=== PATIENT | female | born 1990 ===

== ENCOUNTER 2022-04-11 20:22 | Inpatient (IN) | payer OTHER, SELFPAY ==
[2022-04-11 21:52] VITALS: BP 156/103; PULSE 84; RESP 17; O2SAT 97; BMI 35.5
--- NOTE | 2022-04-11 21:59 | ED_ITS ---
HPI - Psych General Chief Complaint: Psychiatric Symptoms Stated Complaint: crisis eval Time Seen by Provider: 04/11/22 21:59 Source: patient Mode of arrival: ambulatory Limitations: language barrier History of Present Illness HPI Narrative: 1.5 months of not walking. Thought that she has conversion disorder. Now with self harm, cutting herself today. She feels particularly suicidal now, feels worthless, feels like she does not have strength. She and her foster children and one of the child after 3 years was sent back to the family. MD complaint: suicidal ideation and feels depressed Onset (ago): month(s) Duration: constant History of same: Yes Relieving factors: none Exacerbating factors: none Associated psychiatric symptoms: depression and suicidal ideation If self harm: admits thoughts of self harm Related Data Allergies Allergy/AdvReac Type Severity Reaction Status Date / Time No Known Allergies Allergy Verified 04/11/22 22:06 Review of Systems Constitutional: Constitutional: Reports no additional constitutional complaints Eyes: Eyes: Reports no additional eye complaints ENT: Denies dizziness Cardiovascular: Cardiovascular: Reports no additional cardiovascular complaints Respiratory: Respiratory: Reports as per HPI Gastrointestinal: Gastrointestinal: Reports no additional gastrointestinal complaints Genitourinary: Genitourinary: Reports no additional female genitourinary complaints Musculoskeletal: Musculoskeletal: Reports no additional musculoskeletal complaints Integumentary/Breasts: Skin/Breast: Denies rash Neurologic: Reports system reviewed and no additional complaints, except as documented, Denies dizziness and Denies Sensory deficit (Neuro) Psychiatric: Psychiatric: Denies anxiety PMFSH Social History Social History Patient Tobacco Use Status: Never used Tobacco Use of substances other than those prescribed or required for medical reasons: No Advance Directives: No Advance Directives Information Provided: No Physical Exam Vital Signs: Vital Signs: Last Vital Signs Pulse 69 04/12/22 06:00 Resp 17 04/11/22 21:52 BP 119/72 04/12/22 06:00 Pulse Ox 94 04/12/22 06:00 O2 Del Method 04/12/22 06:00 BMI result Body Mass Index 35.5 Const: Other: flat affect Nutritional Appearance: average body habitus Orientation/consciousness: oriented to person and patient oriented x3 Limitations: no limitations HEENT: Head: Yes normal to inspection Ears: external ears normal General nose exam: Normal external nose present Mouth: Normal oral and palatal mucosa present and oropharynx normal Throat: Yes posterior oropharynx normal Eyes: General: appearance normal, both eyes and all related structures Neck: Other: supple Neck: Yes normal visual inspection Chest: Chest palpation & inspection: normal inspection of the chest Resp: Auscultation: clear to auscultation bilaterally Cardio: Jugular venous distension: no JVD Rate: regular rate Rhythm: regular rhythm Heart sounds: S1 normal heart sound present and S2 normal heart sound present GI: Inspection: Yes normal to inspection Palpation (GI): Soft to palpation, nontender and No hepatosplenomegaly present Auscultation: normal bowel sounds : General: Yes no CVA tenderness Back/Spine/Pelvis: Back: no CVA tenderness Skin: General skin exam: no rashes or lesions noted Neuro: General: oriented to person and patient oriented x3 Cranial nerves: Yes CN's II-XII intact bilaterally Motor exam (neuro): 5/5 motor strength present throughout Sensory Exam: No Sensory deficit (Neuro) Extrem: General: Yes normal to inspection Psych: Other: flat affect Course Reevaluation(s) Reevaluation #1: Patient placed in physician observation, she is awaiting evaluation, likely a bed search, patient to be in observation for continued evaluation to see if her symptoms improve and change her disposition Time: 07:22 [facility] - Psych Lab Data Result diagrams: 04/11/22 22:50 04/11/22 22:50 Labs: Lab Results 04/11/22 04/11/22 04/12/22 Range/Units 22:50 22:50 03:57 WBC 6.6 (4.8-10.8) X10*3/uL RBC 4.41 (4.20-5.50) X10*6/uL Hgb 12.7 (12.0-16.0) g/dl Hct 37.9 (37.0-47.0) % MCV 85.9 (80.0-98.0) fL MCH 28.8 (27.0-33.0) pg MCHC 33.5 (31.0-35.0) g/dl RDW 12.6 (11.0-16.0) % Plt Count 254 (160-400) X10*3/uL MPV 10.9 (9.4-12.3) fL Immature Gran % (Auto) 0.3 (0.0-0.4) % Neut % (Auto) 54.5 (45-73) % Lymph % (Auto) 36.8 (20-40) % [place] % (Auto) 6.6 (2-11) % Eos % (Auto) 1.2 (0-4) % Baso % (Auto) 0.6 (0-2) % Lymph # (Auto) 2.4 (1.2-4.9) X10*3/uL [place] # (Auto) 0.4 (0.1-1.2) X10*3/uL Eos # (Auto) 0.1 (0.0-0.4) X10*3/uL Baso # (Auto) 0.0 (0.0-0.2) X10*3/uL Abs Immat Gran (auto) 0.02 (0.00-0.03) X10*3/uL Absolute Neuts (auto) 3.6 (2.0-8.3) x10*3/uL Absolute Nucleated RBC 0.000 (0.0-0.012) X10*3/uL Nucleated RBC % (auto) 0.0 (0.0-0.2) /100WBC Sodium 139 (135-145) mmol/L Potassium 3.9 (3.3-5.1) mmol/L Chloride 106 (96-108) mmol/L Carbon Dioxide 23 (22-29) mmol/L Anion Gap 14 (12-20) BUN 11 (9-16) mg/dL Creatinine 0.72 (0.5-1.4) mg/dL Estim Creat Clear Calc 132.4 Estimated GFR > 60 Random Glucose 90 (60-115) mg/dL Calcium 8.9 (8.4-10.2) mg/dL Total Bilirubin 0.5 (0.0-1.0) mg/dL AST 18 (5-31) U/L ALT 14 (0-31) U/L Alkaline Phosphatase 128 H (39-117) U/L Total Protein 7.3 (6.5-8.0) g/dL Albumin 4.2 (3.5-5.0) g/dL Urine Test (NEGATIVE) Salicylates < 5.0 L (15-30) mg/dL Urine Opiates Screen Not Detected (Not Detect) Urine Fentanyl Screen Not Detected (Not Detect) Acetaminophen < 1 (<30) mcg/mL Ur Barbiturates Screen Not Detected (Not Detect) Ur Phencyclidine Scrn Not Detected (Not Detect) Ur Amphetamines Screen Not Detected (Not Detect) U Benzodiazepines Scrn POSITIVE H (Not Detect) Urine Cocaine Screen Not Detected (Not Detect) U Marijuana (THC) Screen Not Detected (Not Detect) Ethyl Alcohol < 10 mg/dL 04/12/22 Range/Units 03:57 WBC (4.8-10.8) X10*3/uL RBC (4.20-5.50) X10*6/uL Hgb (12.0-16.0) g/dl Hct (37.0-47.0) % MCV (80.0-98.0) fL MCH (27.0-33.0) pg MCHC (31.0-35.0) g/dl RDW (11.0-16.0) % Plt Count (160-400) X10*3/uL MPV (9.4-12.3) fL Immature Gran % (Auto) (0.0-0.4) % Neut % (Auto) (45-73) % Lymph % (Auto) (20-40) % [place] % (Auto) (2-11) % Eos % (Auto) (0-4) % Baso % (Auto) (0-2) % Lymph # (Auto) (1.2-4.9) X10*3/uL [place] # (Auto) (0.1-1.2) X10*3/uL Eos # (Auto) (0.0-0.4) X10*3/uL Baso # (Auto) (0.0-0.2) X10*3/uL Abs Immat Gran (auto) (0.00-0.03) X10*3/uL Absolute Neuts (auto) (2.0-8.3) x10*3/uL Absolute Nucleated RBC (0.0-0.012) X10*3/uL Nucleated RBC % (auto) (0.0-0.2) /100WBC Sodium (135-145) mmol/L Potassium (3.3-5.1) mmol/L Chloride (96-108) mmol/L Carbon Dioxide (22-29) mmol/L Anion Gap (12-20) BUN (9-16) mg/dL Creatinine (0.5-1.4) mg/dL Estim Creat Clear Calc Estimated GFR Random Glucose (60-115) mg/dL Calcium (8.4-10.2) mg/dL Total Bilirubin (0.0-1.0) mg/dL AST (5-31) U/L ALT (0-31) U/L Alkaline Phosphatase (39-117) U/L Total Protein (6.5-8.0) g/dL Albumin (3.5-5.0) g/dL Urine Test NEGATIVE (NEGATIVE) Salicylates (15-30) mg/dL Urine Opiates Screen (Not Detect) Urine Fentanyl Screen (Not Detect) Acetaminophen (<30) mcg/mL Ur Barbiturates Screen (Not Detect) Ur Phencyclidine Scrn (Not Detect) Ur Amphetamines Screen (Not Detect) U Benzodiazepines Scrn (Not Detect) Urine Cocaine Screen (Not Detect) U Marijuana (THC) Screen (Not Detect) Ethyl Alcohol mg/dL Discharge Plan Discharge Clinical Impression: Suicidal ideation, Depression, Acute anxiety Patient Disposition: Still a Patient
--- NOTE | 2022-04-11 22:19 | PC.NURSE ---
PT ON 1:1, CHANGED INTO HOSPITAL ATTIRE, ACCOMPANIED BY RELATIVE. PT TRANSFERS SELF TO STRETCHER FROM WHEELCHAIR, STATES CHRONIC PARESTHESIAS AND WEAKNESS IN BILAT LE'S. STATES THAT SHE BEGAN TO SELF HARM TODAY AFTER SEVERAL MONTHS OF ABSTAINING FROM DOING SO, STATES RECENT LIFE STRESSORS. REPORTS SI, WITH NO PLAN.
[2022-04-11 22:53] LABS: MANUAL DIFF FLAG NO
[2022-04-11 22:55] LABS: Basophils Percent Auto 0.6 % (0-2); Eosinophils Absolute Auto 0.1 X10*3/uL (0.0-0.4); Eosinophils Percent Auto 1.2 % (0-4); Hematocrit 37.9 % (37.0-47.0); Hemoglobin 12.7 g/dl (12.0-16.0); Imm Gran Abs Auto 0.02 X10*3/uL (0.00-0.03); Imm Gran Pct Auto 0.3 % (0.0-0.4); Lymphocytes Absolute Auto 2.4 X10*3/uL (1.2-4.9); Lymphocytes Percent Auto 36.8 % (20-40); Mean Corpuscular HGB Conc 33.5 g/dl (31.0-35.0); Mean Corpuscular Hemoglobin 28.8 pg (27.0-33.0); Mean Corpuscular Volume 85.9 fL (80.0-98.0); Mean Platelet Volume 10.9 fL (9.4-12.3); Monocytes Absolute Auto 0.4 X10*3/uL (0.1-1.2); Monocytes Percent Auto 6.6 % (2-11); Neutrophils Absolute Auto 3.6 x10*3/uL (2.0-8.3); Neutrophils Percent Auto 54.5 % (45-73); Platelet Count 254 X10*3/uL (160-400); Red Blood Count 4.41 X10*6/uL (4.20-5.50); Red Cell Distribution Width 12.6 % (11.0-16.0); White Blood Count 6.6 X10*3/uL (4.8-10.8)
--- NOTE | 2022-04-11 23:03 | PC.NURSE ---
pt was seen [facility] by Vian[facility] and is a bedsearch with them.
[2022-04-11 23:16] LABS: Alanine Aminotransferase 14 U/L (0-31); Albumin Level 4.2 g/dL (3.5-5.0); Alkaline Phosphatase 128 U/L (39-117); Anion Gap 14 (12-20); Aspartate Amino Transferase 18 U/L (5-31); Bilirubin Total 0.5 mg/dL (0.0-1.0); Blood Urea Nitrogen 11 mg/dL (9-16); Calcium 8.9 mg/dL (8.4-10.2); Carbon Dioxide 23 mmol/L (22-29); Chloride 106 mmol/L (96-108); Creatinine Clr Calc Pharmacy 132.4; Estimated Glomerular Filt Rate > 60; Ethanol < 10 mg/dL; Glucose Random 90 mg/dL (60-115); Potassium 3.9 mmol/L (3.3-5.1); Sodium 139 mmol/L (135-145); Total Protein 7.3 g/dL (6.5-8.0)
[2022-04-12] VITALS: BP 128/85; PULSE 88; O2SAT 98
[2022-04-12] MEDS: traZODone HCL 50 MG TABLET PO (00:15)
[2022-04-12 01:28] LABS: Acetaminophen LAB < 1 mcg/mL (<30); Salicylate < 5.0 mg/dL (15-30)
[2022-04-12 04:08] LABS: UPreg QC Valid YES; Urine Pregnancy NEGATIVE (NEGATIVE)
[2022-04-12 04:23] LABS: Amphetamine Screen Urine Not Detected (Not Detect); Barbiturates, Urine Not Detected (Not Detect); Benzodiazepines Screen Urine POSITIVE (Not Detect); Cannabinoid Screen Urine Not Detected (Not Detect); Cocaine Screen Urine Not Detected (Not Detect); Fentanyl, urine Not Detected (Not Detect); Opiate Screen Urine Not Detected (Not Detect); Phencyclidine Screen Urine Not Detected (Not Detect)
[2022-04-12 06:00] VITALS: BP 119/72; PULSE 69; O2SAT 94
[2022-04-12 07:29] VITALS: BP 111/80; PULSE 80; RESP 16; O2SAT 95
[2022-04-12] MEDS: LORazepam 1 MG TABLET PO (07:39)
--- NOTE | 2022-04-12 07:41 | PC.NURSE ---
pt resting in bed comfortably this am. Pt reports feeling more anxious than usual this am. This nurse asked if pt would like something to help calm her down, she agreed. This nurse talked with felicity Foster ordered and administered per SEP.
--- NOTE | 2022-04-12 10:43 | PC.NURSE ---
pt at bedside, 1:[address] pt calm and cooperative throughout all care this am
[2022-04-12 11:32] VITALS: BP 108/79; PULSE 90; RESP 14; TEMP 37; O2SAT 98
[2022-04-12] MEDS: LORazepam 0.5 MG TABLET PO (18:06)
[2022-04-12 18:31] VITALS: BP 129/76; PULSE 109; RESP 18; TEMP 36.7; O2SAT 97
--- NOTE | 2022-04-12 19:23 | PC.NURSE ---
pt remains a sec 12 bedsearch, wheelchair bound at baseline, hx of self harm. has had family visitors at bedside throughout day, sleeps most of the day, occupies self with coloring activities at times. 1:[address] for safety[address] wctm for dc needs.
[2022-04-12 23:48] VITALS: BP 121/84; PULSE 89; RESP 20; TEMP 36.8; O2SAT 97
--- NOTE | 2022-04-13 01:40 | PC.NURSE ---
pt sleeping comfortably on stretcher. 1:[address]
--- NOTE | 2022-04-13 05:37 | PC.NURSE ---
therapeutic conversation had with patient. patient tearful with a very flat affect and major depression. pt states a huge trigger of her feeling this way was that her foster child of three years was just taken away from her and her a few months ago. pt finding things in room to self harm herself. found with a piece of plastic trying to harm wrists. states she is very sad and anxious and does not think she can overcome this one. will notify MD. pt states ativan helps to calm her. will inquire about ativan order... 1:[address]
[2022-04-13] MEDS: LORazepam 1 MG TABLET PO (06:04)
--- NOTE | 2022-04-13 06:08 | PC.NURSE ---
Patient just got transferred from main ED, patient walks independently with walker, but need supervision while ambulating, Ativan 1 mg administered for comfort, BHN called/confirmed patient's disposition which section 12 inpatient bed search for worsening depression and suicidal ideation, med rec completed/pending provider's approval, patient wears pull up, behvaior calm cooperative, VSS, will continue to monitor.
[2022-04-13 06:34] LABS: COVID-19 Test Negative (Negative)
--- NOTE | 2022-04-13 07:05 | PC.NURSE ---
patient appears to remain asleep at present respirations are even and unlabored patient appears in no distress
[2022-04-13] MEDS: DULoxetine HCl 60 MG CAPSULE.DR PO (09:48)
[2022-04-13 13:36] VITALS: BP 147/91; PULSE 80; RESP 16; TEMP 36.7; O2SAT 98
--- NOTE | 2022-04-13 14:40 | PHA.MEDREC ---
Pharmacy Consult ? Medication Reconciliation Pharmacy has completed the medication reconciliation. Reviewed med rec done by nursing
[2022-04-13 15:45] VITALS: BP 142/94; PULSE 94; RESP 16; TEMP 36.6; O2SAT 98
--- NOTE | 2022-04-13 18:11 | PC.NURSE ---
Addendum entered by Angelita Atkins RN 04/13/22 18:26: Per written history, pt has fibromyalgia Original Note: Pt was admitted to at 1515 from [facility] POD on CV after engaging in SH, anxiety and depression; COVID-negative. Utox: +BZO. In POD, pt engaged in self-harm, stating she scratched her left wrist with her fingernail. She sts her SH behavior was ?just cutting,? and denies it was suicidal in nature. Pt has experienced multiple recent life stressors, including r-t health, failed adoption of foster son who was returned to his mother. She has five children ages 7 mos. to 12 years old; reports poor concentration even when driving. Thought process during assessment was linear. Substance use: Pt reports drinking 6 beers three times weekly to help with anxiety, reports and displays no symptoms of withdrawal. Reports taking father?s Xanax for anxiety. Pt reports mood is sad. She is pleasant and cooperative during assessment, responds appropriately, uses humor; affect congruent to situation with some anxiety. Denies SI/HI/AH/VH, unsure if she feels safe. Reports sometimes poor appetite and naproxen in ED negatively affected appetite. Pt experienced a hospitalization in [place] at age 14 requiring a restraint for medication refusal. MedHx: Pt reports upcoming appointment with neurologist, and states ?we don?t know yet? what is causing physical symptoms; reports nodule on pituitary gland; loss of mobility; right-sided weakness; blurry vision; ?I forget to chew and swallow;? anemia, receives infusions Q 6 months; does not feel when bladder is full, wears briefs. Reports independence with ADLs; current question undiagnosed neuromuscular d-o, conversion disorder, demyelinating disease. Left wrist abrasion pt sts self-inflicted with fingernail in ED. PsycheHx: Borderline Personality Disorder; Moderate major depressive disorder, recurrent episode. Current self-harming ideation and behavior, depression. Pt is placed on 1:1 d-t SH behavior and wheelchair.
[2022-04-13] MEDS: TiZANidine HCL 4 MG TABLET PO (23:56)
[2022-04-13] MEDS: hydrOXYzine HCL 25 MG TABLET PO (23:56)
[2022-04-13] MEDS: traZODone HCL 50 MG TABLET PO (23:57)
[2022-04-14 08:30] VITALS: PULSE 80; RESP 18; TEMP 36.8; O2SAT 97
[2022-04-14 09:02] LABS: Estimated Average Glucose 108 mg/dL; Hemoglobin A1c % 5.4 %
[2022-04-14 09:11] LABS: Alanine Aminotransferase 14 U/L (0-31); Alkaline Phosphatase 125 U/L (39-117); Anion Gap 12 (12-20); Aspartate Amino Transferase 18 U/L (5-31); Bilirubin Total 0.9 mg/dL (0.0-1.0); Blood Urea Nitrogen 13 mg/dL (9-16); Calcium 9.1 mg/dL (8.4-10.2); Carbon Dioxide 24 mmol/L (22-29); Chloride 108 mmol/L (96-108); Cholesterol 150 mg/dL; Creatinine Clr Calc Pharmacy 138.2; Estimated Glomerular Filt Rate > 60; Glucose Fasting 98 mg/dL (60-99); HDL Cholesterol 34 mg/dL; LDL Cholesterol Calculated 96 mg/dl; Potassium 4.3 mmol/L (3.3-5.1); Sodium 140 mmol/L (135-145); Triglycerides 102 mg/dL
[2022-04-14 09:35] LABS: Thyroid Stimulating Hormone 1.33 uIU/mL (0.32-4.0)
[2022-04-14 09:41] LABS: Vitamin B12 296 pg/mL (200-900)
[2022-04-14] MEDS: Acetaminophen 325 MG TABLET 650 MG PO (09:52)
[2022-04-14] MEDS: DULoxetine HCl 60 MG CAPSULE.DR PO (09:53)
--- NOTE | 2022-04-14 13:11 | HO.PSYADMNOT ---
HPI Date of Service: 04/14/22 Chief Complaint: SI Sources of Information: patient interviewed, chart reviewed and crisis/core team assessment reviewed HPI Subjective Notes: Conditional Voluntary Narrative: Mrs. Rodríguez is 31 year-old woman with hx of Borderline Personality Disorder. She self presented to [facility] ED after she had superficial cut on right tight that she disclosed to her OT. Utox positive for benzo. On the unit, pt presents with good insight into her diagnosis in that she states she suffers from chronic sense of emptiness, fear of abandonment, reports remote hx of self injurious behaviors not with intent to end her life which she had not engaged in until recently due to increase stress. She reports her and her were foster parents to child they have been caring for since he was 3 days old for the past 3 years and apparently open adoption was coming soon but [facility] decided to reunite pt with bio mother. Pt also reports she has experienced weakness of bilat lower extremities, falls- pt had recent admission at [facility] and work up was completed by neurology, rheumatology, and she has been given dx of conversion syndrome as there is no evident physiological cause for this weakness. Pt reports she is able to walk, but when standing for prolonged periods of time she feels tingling and weakness on both legs and then has a fall. She reports feeling overwhelmed and wanting stressors to go away, but denies any plan or intent to . Pt reports fair sleep with trazodone. no hx of VH/AH. Past Psychiatric History: Inpatient: one prior several years ago in [place] OP: none currently but reports she had extensive CBT therapy, which is event by degree of insight into her mental health condition. Suicide attempts: none Medical Evaluation Reviewed: Yes [facility] Family History: Father- PTSD Social History: lives with and 4 children from ages 7 months- 15years old. Born in [place]. Substance History: denies Trauma History: hx of but no details disclosed. Diagnostics Vital Signs (24Hr): Vital Signs - 24 hr 04/13/22 13:36 04/13/22 15:45 Temperature 98.1 F 97.9 F Pulse Rate 80 94 Respiratory Rate 16 16 Blood Pressure 147/91 H 142/94 H Pulse Oximetry 98 98 Oxygen Delivery Method Room Air Room Air BMI result Body Mass Index 35.5 Labs Results: 04/11/22 22:50 04/14/22 08:28 Labs: Laboratory Results - last 48 hr 04/13/22 04/14/22 04/14/22 06:07 08:28 08:28 Sodium 140 Potassium 4.3 Chloride 108 Carbon Dioxide 24 Anion Gap 12 BUN 13 Creatinine 0.69 Estim Creat Clear Calc 138.2 Estimated GFR > 60 Fasting Glucose 98 Estimat Average Glucose 108 Hemoglobin A1c % 5.4 Calcium 9.1 Total Bilirubin 0.9 AST 18 ALT 14 Alkaline Phosphatase 125 H Total Protein 7.0 Albumin 4.0 Triglycerides 102 Cholesterol 150 LDL Cholesterol, Calc 96 HDL Cholesterol 34 Vitamin B12 TSH 1.33 COVID-19 (CAT) Negative COVID-19 Clin Com See Note 04/14/22 08:28 Sodium Potassium Chloride Carbon Dioxide Anion Gap BUN Creatinine Estim Creat Clear Calc Estimated GFR Fasting Glucose Estimat Average Glucose Hemoglobin A1c % Calcium Total Bilirubin AST ALT Alkaline Phosphatase Total Protein Albumin Triglycerides Cholesterol LDL Cholesterol, Calc HDL Cholesterol Vitamin B12 296 TSH COVID-19 (CAT) COVID-19 Clin Com Meds/Allergies Meds Home Medications Medication Instructions Recorded Confirmed Type duloxetine 30 mg capsule,delayed 60 mg PO DAILY 04/13/22 04/13/22 History release tizanidine 4 mg tablet 1 tab PO TID PRN Muscle Spasm 04/13/22 04/13/22 History tramadol 50 mg tablet 1 tab PO BID PRN pain 04/13/22 04/13/22 History Allergies Allergies Allergy/AdvReac Type Severity Reaction Status Date / Time No Known Allergies Allergy Verified 04/11/22 22:06 Assessment & Plan Assessment & Plan (1) Borderline personality disorder: Status: Acute Code(s): F60.3 - Borderline personality disorder Plan Mrs. Rodríguez is a 31 year-old woman with hx of Borderline Personality Disorder, pt very insight as to her own condition and triggers including chronic sense of emptiness, fear of abandonment, apparently not walking for past 1.5 months which has no medical explanation after admission to [facility] where there was extensive work up- given dx of conversion syndrome. Loss foster child who was reunited with bio mother after 3 years of caring for him. Utox positive for benzo. We discussed risks, benefits and alternative treatment options. will continue cymbalta, trazodone, may consider short term clonazepam. she is also looking to reconnect with OP psych providers. PLAN 1. Admit to M3, CV, 15 minutes checks for safety 2. continue cymbalta 3. obtain collateral information 4. Aftercare planning. Patient educated on: diagnosis Informed Consent: understands Reason for continued inpatient stay Substantial Risk for: harm to self and inability to function
[2022-04-14] MEDS: TiZANidine HCL 4 MG TABLET PO ×2 (14:48→22:11)
[2022-04-14] MEDS: hydrOXYzine HCL 25 MG TABLET PO ×2 (15:29→22:11)
[2022-04-14 18:00] VITALS: BP 134/83; PULSE 103; RESP 18; TEMP 36; O2SAT 98
[2022-04-14] MEDS: traZODone HCL 50 MG TABLET PO (22:11)
[2022-04-15 09:00] VITALS: BP 130/92; PULSE 73; RESP 16; TEMP 36.6; O2SAT 100
[2022-04-15] MEDS: DULoxetine HCl 60 MG CAPSULE.DR PO (09:06)
[2022-04-15] MEDS: hydrOXYzine HCL 25 MG TABLET PO (09:06)
[2022-04-15] MEDS: clonazePAM 0.5 MG TABLET PO ×2 (12:50→20:34)
--- NOTE | 2022-04-15 13:21 | P.PNPSI_ITS ---
Subjective Subjective Date of Service: 04/15/22 Reason For Visit: SI Subjective Notes: Conditional Voluntary Interim History: Pt reports feeling so, so She reports feeling anxious at times. She reports she worries about her as she has many things on her plate. She denies SI/HI. No self injurious behaviors. we discussed wheelchair has not been recommended by PT, and therefore she should have walker instead. will do PT consult here. continue current medications. Medication Compliance: Yes Side effects from medications: No Review of Systems Constitutional: Reports no additional constitutional complaints, Reports fatigue and Reports lethargy Eyes: Reports no additional eye complaints Reports system reviewed and no additional complaints, except as documented and Denies dizziness Cardiovascular: Reports no additional cardiovascular complaints, Denies chest pain, Denies diaphoresis, Denies lightheadedness and Denies dyspnea Respiratory: Reports as per HPI and Denies dyspnea Gastrointestinal: Reports no additional gastrointestinal complaints and Denies constipation Musculoskeletal: Reports no additional musculoskeletal complaints, Reports muscle weakness and Reports tingling (bilat legs) Skin/Breast: Denies rash Reports system reviewed and no additional complaints, except as documented, Den ies dizziness, Denies Sensory deficit (Neuro) and Reports tingling (bilat legs) Psychiatric: Denies anxiety Endocrine: Reports fatigue Mental Status Exam Mental Status Exam Narrative: Appearance: casually groomed, fair hygiene in NAD Behavior: cooperative psychomotor: no psychomotor agitation or retardation noted Speech: clear, normal rate/rhythm/volume, spontaneous Thought process:linear Thought content:no signs of psychosis, feeling anxious but no SI Mood: anxious Affect: congruent, but brightens up SI:none HI:none VH/AH:none Delusions:none Insight/judgment:fair x 2. Memory/cog: alert, oriented x 3. grossly intact to conversational testing. Diagnostics Vital Signs (24Hr): Vital Signs - 24 hr 04/15/22 14:10 04/15/22 18:00 Temperature 98.3 F Pulse Rate 73 103 H Respiratory Rate 17 Blood Pressure 130/92 H 135/88 Pulse Oximetry 100 95 Oxygen Delivery Method Room Air BMI result Body Mass Index 35.5 Labs Results: 04/11/22 22:50 04/14/22 08:28 Labs: Laboratory Results - last 48 hr 04/14/22 04/14/22 08:28 08:28 Vitamin B12 296 TSH 1.33 Medications Medications Current Medications Acetaminophen (Acetaminophen 325 Mg Tablet) 650 mg PO Q6H PRN PRN Reason: Headache/Pain Mild Scale (1-3) Last Admin: 04/15/22 20:34 Dose: 650 mg Al Hydroxide/Mg Hydroxide (Magnesium Hydrox/Alum Hydrox 30 Ml Oral.Susp) 30 ml PO Q6H PRN PRN Reason: Heartburn/Nausea Clonazepam (Clonazepam 0.5 Mg Tablet) 0.5 mg PO BID ALON Last Admin: 04/15/22 20:34 Dose: 0.5 mg Duloxetine HCl (Duloxetine Hcl 60 Mg Capsule.Dr) 60 mg PO DAILY ALON Last Admin: 04/15/22 09:06 Dose: 60 mg Hydroxyzine HCl (Hydroxyzine Hcl 25 Mg Tablet) 25 mg PO Q6H PRN PRN Reason: Anxiety Last Admin: 04/15/22 09:06 Dose: 25 mg Magnesium Hydroxide (Milk Of Magnesia 30 Ml Oral.Susp) 30 ml PO DAILY PRN PRN Reason: Constipation Tizanidine HCl (Tizanidine Hcl 4 Mg Tablet) 4 mg PO TID PRN PRN Reason: Muscle Spasm Last Admin: 04/14/22 22:11 Dose: 4 mg Trazodone HCl (Trazodone Hcl 50 Mg Tablet) 50 mg PO BEDTIME PRN PRN Reason: Insomnia Last Admin: 04/14/22 22:11 Dose: 50 mg Allergies Allergies Allergy/AdvReac Type Severity Reaction Status Date / Time No Known Allergies Allergy Verified 04/11/22 22:06 Assessment & Plan Assessment & Plan (1) Borderline personality disorder: Status: Acute Code(s): F60.3 - Borderline personality disorder Plan Mrs. Rodríguez is a 31 year-old woman with hx of Borderline Personality Disorder, pt very insight as to her own condition and triggers including chronic sense of emptiness, fear of abandonment, apparently not walking for past 1.5 months which has no medical explanation after admission to [facility] where there was extensive work up- given dx of conversion syndrome. Loss foster child who was reunited with bio mother after 3 years of caring for him. Utox positive for benzo. We discussed risks, benefits and alternative treatment options. will continue cymbalta, trazodone, may consider short term clonazepam. she is also looking to reconnect with OP psych providers. PLAN 1. Admit to M3, CV, 15 minutes checks for safety 2. continue cymbalta 3. obtain collateral information 4. Aftercare planning. 04/15 continue current medications. I spent minutes with the patient and/or on the patient floor today, gre ater than?50% of which was spent counseling/coordinating care. Reason for contiued inpatient stay Substantial Risk for: harm to self
[2022-04-15 14:10] VITALS: BP 130/92; PULSE 73; O2SAT 100
[2022-04-15 18:00] VITALS: BP 135/88; PULSE 103; RESP 17; TEMP 36.8; O2SAT 95
[2022-04-15] MEDS: Acetaminophen 325 MG TABLET 650 MG PO (20:34)
[2022-04-16] MEDS: clonazePAM 1 MG TABLET PO (04:23)
--- NOTE | 2022-04-16 04:42 | PC.NURSE ---
Pt was seen sitting on her bathroom floor crying with a plastic spoon in her hand at around 0355. Pt gave the spoon up at staff's request without any incident. Staff sought to find the reason for Pt's sudden behavior but Pt would not talk about it. Pt was given a clear, calm and brief redirection. Provider notified, onetime order for Klonopin 1mg ordered and given with positive effect. Pt is back in bed resting comfortably.
[2022-04-16 08:35] VITALS: PULSE 72; RESP 18; TEMP 37.1; O2SAT 97
[2022-04-16] MEDS: clonazePAM 0.5 MG TABLET PO ×2 (10:41→21:10)
[2022-04-16] MEDS: DULoxetine HCl 60 MG CAPSULE.DR PO (10:42)
[2022-04-16] MEDS: TiZANidine HCL 4 MG TABLET PO (10:52)
--- NOTE | 2022-04-16 13:34 | HO.PSYCHPN ---
Subjective Subjective Date of Service: 04/16/22 Reason For Visit: SI Subjective Notes: Conditional Voluntary Interim History: Noted some regression from pt's behaviors and increase in self injurious urges or at least report off, after wheelchair was removed due no clinical indication. Pt did not sleep well, crying at night, holding plastic spoon reporting urges to self harm not with intent of ending life. She was given clonazepam 1mg last time. This morning, pt on the floor holding again plastic spoon and reporting urges to self harm, needed much encouragement to return plastic utensil. Pt clearly states urges to self harm not with intent to end her life. this machine sign writer explained to pt that we're not having 1:1 and self harm although not suicidal not allowed on unit, pt given other alternative such as holding ice on wrist. pt agrees not to self harm while unit, explained also to pt that it will not prolonged admission, which pt understands and is in agreement. Pt reports voices of past trauma but these do not appear psychosis in nature. pt in somewhat helpless position- asking attention from certain staff. Review of Systems Constitutional: Reports no additional constitutional complaints, Reports fatigue and Reports lethargy Eyes: Reports no additional eye complaints Reports system reviewed and no additional complaints, except as documented and Denies dizziness Cardiovascular: Reports no additional cardiovascular complaints, Denies chest pain, Denies diaphoresis, Denies lightheadedness and Denies dyspnea Respiratory: Reports as per HPI and Denies dyspnea Gastrointestinal: Reports no additional gastrointestinal complaints and Denies constipation Musculoskeletal: Reports no additional musculoskeletal complaints, Reports muscle weakness and Reports tingling (bilat legs) Skin/Breast: Denies rash Reports system reviewed and no additional complaints, except as documented, Denies dizziness, Denies Sensory deficit (Neuro) and Reports tingling (bilat legs) Psychiatric: Denies anxiety Endocrine: Reports fatigue Mental Status Exam Mental Status Exam Narrative: Appearance: casually groomed, fair hygiene in NAD Behavior: cooperative psychomotor: no psychomotor agitation or retardation noted Speech: clear, normal rate/rhythm/volume, spontaneous Thought process:linear Thought content:no signs of psychosis, feeling anxious but no SI Mood: anxious Affect: congruent, but brightens up SI:none HI:none VH/AH:none Delusions:none Insight/judgment:fair x 2. Memory/cog: alert, oriented x 3. grossly intact to conversational testing. Diagnostics Vital Signs (24Hr): Vital Signs - 24 hr 04/15/22 14:10 04/15/22 18:00 04/16/22 08:35 Temperature 98.3 F 98.7 F Pulse Rate 73 103 H 72 Respiratory Rate 17 18 Blood Pressure 130/92 H 135/88 Pulse Oximetry 100 95 97 Oxygen Delivery Method Room Air Room Air BMI result Body Mass Index 35.5 Labs Results: 04/11/22 22:50 04/14/22 08:28 Medications Medications Current Medications Acetaminophen (Acetaminophen 325 Mg Tablet) 650 mg PO Q6H PRN PRN Reason: Headache/Pain Mild Scale (1-3) Last Admin: 04/15/22 20:34 Dose: 650 mg Al Hydroxide/Mg Hydroxide (Magnesium Hydrox/Alum Hydrox 30 Ml Oral.Susp) 30 ml PO Q6H PRN PRN Reason: Heartburn/Nausea Clonazepam (Clonazepam 0.5 Mg Tablet) 0.5 mg PO BID [facility] Last Admin: 04/16/22 10:41 Dose: 0.5 mg Duloxetine HCl (Duloxetine Hcl 60 Mg Capsule.Dr) 60 mg PO DAILY [facility] Last Admin: 04/16/22 10:42 Dose: 60 mg Hydroxyzine HCl (Hydroxyzine Hcl 25 Mg Tablet) 25 mg PO Q6H PRN PRN Reason: Anxiety Last Admin: 04/15/22 09:06 Dose: 25 mg Magnesium Hydroxide (Milk Of Magnesia 30 Ml Oral.Susp) 30 ml PO DAILY PRN PRN Reason: Constipation Tizanidine HCl (Tizanidine Hcl 4 Mg Tablet) 4 mg PO TID PRN PRN Reason: Muscle Spasm Last Admin: 04/16/22 10:52 Dose: 4 mg Trazodone HCl (Trazodone Hcl 50 Mg Tablet) 50 mg PO BEDTIME PRN PRN Reason: Insomnia Last Admin: 04/14/22 22:11 Dose: 50 mg Allergies Allergies Allergy/AdvReac Type Severity Reaction Status Date / Time No Known Allergies Allergy Verified 04/11/22 22:06 Assessment & Plan Assessment & Plan (1) Borderline personality disorder: Status: Acute Code(s): F60.3 - Borderline personality disorder Plan Mrs. Rodríguez is a 31 year-old woman with hx of Borderline Personality Disorder, pt very insight as to her own condition and triggers including chronic sense of emptiness, fear of abandonment, apparently not walking for past 1.5 months which has no medical explanation after admission to [facility] where there was extensive work up- given dx of conversion syndrome. Loss foster child who was reunited with bio mother after 3 years of caring for him. Utox positive for benzo. We discussed risks, benefits and alternative treatment options. will continue cymbalta, trazodone, may consider short term clonazepam. she is also looking to reconnect with OP psych providers. PLAN 1. Admit to M3, CV, 15 minutes checks for safety 2. continue cymbalta 3. obtain collateral information 4. Aftercare planning. 04/15 continue current medications. 04/16 pt with some regression in that she is reporting and trying to engage in self harm behaviors, not allowed to use plastic utensil at least in room, she agrees to this. No need for one to one as it will reinforced attention and regressive behaviors, pt understands this. encouraged pt to ask for ice if needed for self soothing, she agrees to try naltrexon to decrease urges to self cut. report of voices, trauma related but not psychosis in nature. pt insightful about borderline dx and short admission is a must to prevent further regression. pt in agreement. I spent minutes with the patient and/or on the patient floor today, greater than?50% of which was spent counseling/coordinating care. Reason for contiued inpatient stay Substantial Risk for: harm to self
[2022-04-16 14:30] VITALS: BP 146/90; PULSE 100; RESP 16; TEMP 36.6; O2SAT 96
[2022-04-16] MEDS: Naltrexone HCl 50 MG TABLET PO (15:30)
--- NOTE | 2022-04-16 18:50 | PC.NURSE ---
At 1630 Ayaka had a quarter sized spot on her pillow that looked like blood. She says she coughed it up in her sleep. She had not been coughing excessively. No noted injury to cheek or lip. She denied swallowing anything she wasn't supposed to swallow. Nothing coming out of nose. I had her blow her nose and the discharge was clear. I cleaned her pillow and told her to report any further occurrence. It has since happened two more times. She denies this has happened before. She reports hx gastric bypass. She is reporting some stomach upset and mild dizziness. Elsa Jennings MOLDER OFFBEARER informed.
[2022-04-16] MEDS: Magnesium Hydrox/Alum Hydrox 30 ML ORAL.SUSP PO (19:15)
[2022-04-16 20:32] VITALS: BP 153/96; PULSE 94; RESP 18; TEMP 36.7; O2SAT 96
[2022-04-16] MEDS: traZODone HCL 100 MG TABLET PO (21:09)
[2022-04-17 08:30] VITALS: BP 138/88; PULSE 82; RESP 16; TEMP 36.8; O2SAT 97
[2022-04-17] MEDS: clonazePAM 0.5 MG TABLET PO ×2 (08:57→21:26)
[2022-04-17] MEDS: DULoxetine HCl 60 MG CAPSULE.DR PO (08:57)
[2022-04-17] MEDS: Naltrexone HCl 50 MG TABLET PO (08:57)
[2022-04-17] MEDS: Magnesium Hydrox/Alum Hydrox 30 ML ORAL.SUSP PO (09:00)
[2022-04-17 13:00] LABS: MANUAL DIFF FLAG NO
[2022-04-17 13:02] LABS: Basophils Percent Auto 0.5 % (0-2); Eosinophils Percent Auto 0.5 % (0-4); Hematocrit 40.4 % (37.0-47.0); Hemoglobin 13.3 g/dl (12.0-16.0); Imm Gran Abs Auto 0.01 X10*3/uL (0.00-0.03); Imm Gran Pct Auto 0.2 % (0.0-0.4); Lymphocytes Absolute Auto 1.3 X10*3/uL (1.2-4.9); Lymphocytes Percent Auto 19.8 % (20-40); Mean Corpuscular HGB Conc 32.9 g/dl (31.0-35.0); Mean Corpuscular Hemoglobin 28.7 pg (27.0-33.0); Mean Corpuscular Volume 87.1 fL (80.0-98.0); Mean Platelet Volume 9.7 fL (9.4-12.3); Monocytes Absolute Auto 0.5 X10*3/uL (0.1-1.2); Neutrophils Absolute Auto 4.7 x10*3/uL (2.0-8.3); Platelet Count 272 X10*3/uL (160-400); Red Blood Count 4.64 X10*6/uL (4.20-5.50); Red Cell Distribution Width 12.4 % (11.0-16.0); White Blood Count 6.7 X10*3/uL (4.8-10.8)
[2022-04-17] MEDS: QUEtiapine Fumarate 50 MG TABLET PO (13:14)
--- NOTE | 2022-04-17 13:14 | P.PNPSI_ITS ---
Subjective Subjective Date of Service: 04/17/22 Reason For Visit: SI Subjective Notes: Conditional Voluntary Interim History: Pt reports intermittent thoughts of wanting to harm herself. She reports some improvement in urges to self harm right after taking naltrexon. She continues to report flashbacks of past trauma, suicidal ideation but clear in that she sta anish she has no plan or intent to harm herself. Medication Compliance: Yes Side effects from medications: No Review of Systems Constitutional: Reports no additional constitutional complaints, Reports fatigue and Reports lethargy Eyes: Reports no additional eye complaints Reports system reviewed and no additional complaints, except as documented and Denies dizziness Cardiovascular: Reports no additional cardiovascular complaints, Denies chest pain, Denies diaphoresis, Denies lightheadedness and Denies dyspnea Respiratory: Reports as per HPI and Denies dyspnea Gastrointestinal: Reports no additional gastrointestinal complaints and Denies constipation Musculoskeletal: Reports no additional musculoskeletal complaints, Reports muscle weakness and Reports tingling (bilat legs) Skin/Breast: Denies rash Reports system reviewed and no additional complaints, except as documented, Denies dizziness, Denies Sensory deficit (Neuro) and Reports tingling (bilat legs) Psychiatric: Denies anxiety Endocrine: Reports fatigue Mental Status Exam Mental Status Exam Narrative: Appearance: casually groomed, fair hygiene in NAD Behavior: cooperative psychomotor: no psychomotor agitation or retardation noted Speech: clear, normal rate/rhythm/volume, spontaneous Thought process:linear Thought content:no signs of psychosis, feeling anxious but no SI Mood: anxious Affect: congruent, but brightens up SI:none HI:none VH/AH:none Delusions:none Insight/judgment:fair x 2. Memory/cog: alert, oriented x 3. grossly intact to conversational testing. Diagnostics Vital Signs (24Hr): Vital Signs - 24 hr 04/17/22 08:30 04/17/22 21:20 Temperature 98.3 F 98.4 F Pulse Rate 82 92 Respiratory Rate 16 18 Blood Pressure 138/88 151/100 H Pulse Oximetry 97 100 Oxygen Delivery Method Room Air Room Air BMI result Body Mass Index 35.5 Labs Results: 04/17/22 12:55 04/14/22 08:28 Labs: Laboratory Results - last 48 hr 04/17/22 12:55 WBC 6.7 RBC 4.64 Hgb 13.3 Hct 40.4 MCV 87.1 MCH 28.7 MCHC 32.9 RDW 12.4 Plt Count 272 MPV 9.7 Immature Gran % (Auto) 0.2 Neut % (Auto) 71.0 Lymph % (Auto) 19.8 L Christian % (Auto) 8.0 Eos % (Auto) 0.5 Baso % (Auto) 0.5 Lymph # (Auto) 1.3 Christian # (Auto) 0.5 Eos # (Auto) 0.0 Baso # (Auto) 0.0 Abs Immat Gran (auto) 0.01 Absolute Neuts (auto) 4.7 Absolute Nucleated RBC 0.000 Nucleated RBC % (auto) 0.0 Medications Medications Current Medications Acetaminophen (Acetaminophen 325 Mg Tablet) 650 mg PO Q6H PRN PRN Reason: Headache/Pain Mild Scale (1-3) Last Admin: 04/15/22 20:34 Dose: 650 mg Al Hydroxide/Mg Hydroxide (Magnesium Hydrox/Alum Hydrox 30 Ml Oral.Susp) 30 ml PO Q6H PRN PRN Reason: Heartburn/Nausea Last Admin: 04/17/22 09:00 Dose: 30 ml Clonazepam (Clonazepam 0.5 Mg Tablet) 0.5 mg PO BID [facility] Last Admin: 04/17/22 21:26 Dose: 0.5 mg Clotrimazole (Clotrimazole 1 % Cream 15 Gm Tube) 1 appl TOPICAL BID [facility]; Protocol Last Admin: 04/17/22 23:07 Dose: 1 appl Duloxetine HCl (Duloxetine Hcl 60 Mg Capsule.Dr) 60 mg PO DAILY [facility] Last Admin: 04/17/22 08:57 Dose: 60 mg Hydroxyzine HCl (Hydroxyzine Hcl 25 Mg Tablet) 25 mg PO Q6H PRN PRN Reason: Anxiety Last Admin: 04/15/22 09:06 Dose: 25 mg Magnesium Hydroxide (Milk Of Magnesia 30 Ml Oral.Susp) 30 ml PO DAILY PRN PRN Reason: Constipation Naltrexone HCl (Naltrexone Hcl 50 Mg Tablet) 50 mg PO DAILY [facility] Last Admin: 04/17/22 08:57 Dose: 50 mg Quetiapine Fumarate (Quetiapine Fumarate 50 Mg Tablet) 50 mg PO Q6H PRN PRN Reason: agitation, severe anxiety Last Admin: 04/17/22 13:14 Dose: 50 mg Tizanidine HCl (Tizanidine Hcl 4 Mg Tablet) 4 mg PO TID PRN PRN Reason: Muscle Spasm Last Admin: 04/16/22 10:52 Dose: 4 mg Trazodone HCl (Trazodone Hcl 100 Mg Tablet) 100 mg PO BEDTIME [facility] Last Admin: 04/17/22 23:07 Dose: 100 mg Allergies Allergies Allergy/AdvReac Type Severity Reaction Status Date / Time No Known Allergies Allergy Verified 04/11/22 22:06 Assessment & Plan Assessment & Plan (1) Borderline personality disorder: Status: Acute Code(s): F60.3 - Borderline personality disorder Plan Mrs. Rodríguez is a 31 year-old woman with hx of Borderline Personality Disorder, pt very insight as to her own condition and triggers including chronic sense of emptiness, fear of abandonment, apparently not walking for past 1.5 months which has no medical explanation after admission to [facility] where there was extensive work up- given dx of conversion syndrome. Loss foster child who was reunited with bio mother after 3 years of caring for him. Utox positive for benzo. We discussed risks, benefits and alternative treatment options. will continue cymbalta, trazodone, may consider short term clonazepam. she is also looking to reconnect with OP psych providers. PLAN 1. Admit to M3, CV, 15 minutes checks for safety 2. continue cymbalta 3. obtain collateral information 4. Aftercare planning. 04/15 continue current medications. 04/16 pt with some regression in that she is reporting and trying to engage in self harm behaviors, not allowed to use plastic utensil at least in room, she agrees to this. No need for one to one as it will reinforced attention and regressive behaviors, pt understands this. encouraged pt to ask for ice if needed for self soothing, she agrees to try naltrexon to decrease urges to self cut. report of voices, trauma related but not psychosis in nature. pt insightful about borderline dx and short admission is a must to prevent further regression. pt in agreement. 04/17 continue current tx. plan for dc on Monday. I spent minutes with the patient and/or on the patient floor today, greater than?50% of which was spent counseling/coordinating care. Reason for contiued inpatient stay Substantial Risk for: inability to function
[2022-04-17] MEDS: Clotrimazole 1 % Cream 15 GM TUBE 1 APPL TOPICAL ×2 (18:21→23:07)
[2022-04-17 21:20] VITALS: BP 151/100; PULSE 92; RESP 18; TEMP 36.9; O2SAT 100
[2022-04-17] MEDS: traZODone HCL 100 MG TABLET PO (23:07)
--- NOTE | 2022-04-18 06:46 | PC.NURSE ---
At approx. 0630, pt bathroom call light alarmed. Staff responded immediately to find pt sitting on bathroom floor in her room. Pt had a bed sheet twisted into a rope, tied into a knot on her walker and the other end wrapped around her fist. Pt refused to respond to staff questions and attempts to assess what happened. Pt appeared to have lowered self to the ground, no injury apparent, in no apparent distress. Bed sheet was removed and pt was placed on 1:1 for safety. Provider notified.
[2022-04-18 08:00] VITALS: BP 145/87; PULSE 81; TEMP 36.8; O2SAT 98
[2022-04-18] MEDS: clonazePAM 0.5 MG TABLET PO ×2 (08:07→21:26)
[2022-04-18] MEDS: DULoxetine HCl 60 MG CAPSULE.DR PO (08:08)
[2022-04-18] MEDS: Naltrexone HCl 50 MG TABLET PO (08:09)
[2022-04-18] MEDS: Acetaminophen 325 MG TABLET 650 MG PO (08:23)
[2022-04-18] MEDS: Clotrimazole 1 % Cream 15 GM TUBE 1 APPL TOPICAL ×2 (08:25→22:37)
[2022-04-18] MEDS: QUEtiapine Fumarate 50 MG TABLET PO (16:12)
--- NOTE | 2022-04-18 16:20 | P.PNPSI_ITS ---
Subjective Subjective Date of Service: 04/18/22 Reason For Visit: SI Interim History: pt c/o CAH to kill herself, SIBI. describes constant struggle to stop from hurting herself. this morning she said the voices and thoughts were overwhelming so she tied off her sheet and was preparing to try to strangle herself when her roommate called out to her. she states that if her roommate hadn't intervened, she would have done it. she notes with a wry grin that her came in for a visit and met with LATANYA tim nobody informed the of this morning's event and the was quite angry. per staff, on 1:1. c/o AH. increased anxiety and depression. +SIBI. found on floor of bathroom this morning with sheet tied around walker with plan to asphyxiate herself (then she was placed on 1:1). Mental Status Exam Mental Status Exam Narrative: Appearance: casually groomed, fair hygiene in NAD Behavior: cooperative psychomotor: no psychomotor agitation or retardation noted Speech: clear, normal rate/rhythm/volume, spontaneous Thought process:linear Thought content:no signs of psychosis, SIBI Mood: not assessed Affect: variable but flexible SI:none SIBI: yes, cutting HI:none VH/AH: CAH to kill herself Delusions:none Insight/judgment:fair x 2. Memory/cog: alert, oriented x 3. grossly intact to conversational testing. Diagnostics Vital Signs (24Hr): Vital Signs - 24 hr 04/17/22 21:20 04/18/22 08:00 Temperature 98.4 F 98.3 F Pulse Rate 92 81 Respiratory Rate 18 Blood Pressure 151/100 H 145/87 H Pulse Oximetry 100 98 Oxygen Delivery Method Room Air Room Air BMI result Body Mass Index 35.5 Labs Results: 04/17/22 12:55 04/14/22 08:28 Labs: Laboratory Results - last 48 hr 04/17/22 12:55 WBC 6.7 RBC 4.64 Hgb 13.3 Hct 40.4 MCV 87.1 MCH 28.7 MCHC 32.9 RDW 12.4 Plt Count 272 MPV 9.7 Immature Gran % (Auto) 0.2 Neut % (Auto) 71.0 Lymph % (Auto) 19.8 L Kent % (Auto) 8.0 Eos % (Auto) 0.5 Baso % (Auto) 0.5 Lymph # (Auto) 1.3 Kent # (Auto) 0.5 Eos # (Auto) 0.0 Baso # (Auto) 0.0 Abs Immat Gran (auto) 0.01 Absolute Neuts (auto) 4.7 Absolute Nucleated RBC 0.000 Nucleated RBC % (auto) 0.0 Medications Medications Current Medications Acetaminophen (Acetaminophen 325 Mg Tablet) 650 mg PO Q6H PRN PRN Reason: Headache/Pain Mild Scale (1-3) Last Admin: 04/18/22 08:23 Dose: 650 mg Al Hydroxide/Mg Hydroxide (Magnesium Hydrox/Alum Hydrox 30 Ml Oral.Susp) 30 ml PO Q6H PRN PRN Reason: Heartburn/Nausea Last Admin: 04/17/22 09:00 Dose: 30 ml Clonazepam (Clonazepam 0.5 Mg Tablet) 0.5 mg PO BID [facility] Last Admin: 04/18/22 08:07 Dose: 0.5 mg Clotrimazole (Clotrimazole 1 % Cream 15 Gm Tube) 1 appl TOPICAL BID [facility]; Protocol Last Admin: 04/18/22 08:25 Dose: 1 appl Duloxetine HCl (Duloxetine Hcl 60 Mg Capsule.Dr) 60 mg PO DAILY [facility] Last Admin: 04/18/22 08:08 Dose: 60 mg Hydroxyzine HCl (Hydroxyzine Hcl 25 Mg Tablet) 25 mg PO Q6H PRN PRN Reason: Anxiety Last Admin: 04/15/22 09:06 Dose: 25 mg Magnesium Hydroxide (Milk Of Magnesia 30 Ml Oral.Susp) 30 ml PO DAILY PRN PRN Reason: Constipation Naltrexone HCl (Naltrexone Hcl 50 Mg Tablet) 50 mg PO DAILY [facility] Last Admin: 04/18/22 08:09 Dose: 50 mg Quetiapine Fumarate (Quetiapine Fumarate 50 Mg Tablet) 50 mg PO Q6H PRN PRN Reason: agitation, severe anxiety Last Admin: 04/18/22 16:12 Dose: 50 mg Tizanidine HCl (Tizanidine Hcl 4 Mg Tablet) 4 mg PO TID PRN PRN Reason: Muscle Spasm Last Admin: 04/16/22 10:52 Dose: 4 mg Trazodone HCl (Trazodone Hcl 100 Mg Tablet) 100 mg PO BEDTIME [facility] Last Admin: 04/17/22 23:07 Dose: 100 mg Allergies Allergies Allergy/AdvReac Type Severity Reaction Status Date / Time No Known Allergies Allergy Verified 04/11/22 22:06 Assessment & Plan Assessment & Plan (1) Borderline personality disorder: Status: Acute Code(s): F60.3 - Borderline personality disorder Plan Mrs. Rodríguez is a 31 year-old woman with hx of Borderline Personality Disorder, pt very insight as to her own condition and triggers including chronic sense of emptiness, fear of abandonment, apparently not walking for past 1.5 months which has no medical explanation after admission to [facility] where there was extensive work up- given dx of conversion syndrome. Loss foster child who was reunited with bio mother after 3 years of caring for him. Utox positive for benzo. We discussed risks, benefits and alternative treatment options. will continue cymbalta, trazodone, may consider short term clonazepam. she is also looking to reconnect with OP psych providers. PLAN 1. Admit to M3, CV, 15 minutes checks for safety 2. continue cymbalta 3. obtain collateral information 4. Aftercare planning. 04/15 continue current medications. 04/16 pt with some regression in that she is reporting and trying to engage in self harm behaviors, not allowed to use plastic utensil at least in room, she agrees to this. No need for one to one as it will reinforced attention and regressive behaviors, pt understands this. encouraged pt to ask for ice if needed for self soothing, she agrees to try naltrexone to decrease urges to cut. report of voices, trauma related but not psychosis in nature. pt insightful about borderline dx and short admission is a must to prevent further regression. pt in agreement. 04/17 continue current tx. plan for dc on Monday. 04/18: reported SI with plan to asphyxiate with preparatory behaviors on the unit, placed on 1:1. plan to discharge tomorrow. pt struggling with SIBI. I spent __25____ minutes with the patient and/or on the patient floor today, greater than?50% of which was spent counseling/coordinating care. Reason for contiued inpatient stay Substantial Risk for: harm to self, inability to function and rapid decompensation
[2022-04-18 20:41] VITALS: BP 126/82; PULSE 99; RESP 18; TEMP 36.6; O2SAT 98
[2022-04-18] MEDS: traZODone HCL 100 MG TABLET PO (22:37)
[2022-04-19 08:57] VITALS: BP 142/89; PULSE 85; RESP 17; TEMP 36.8; O2SAT 96
[2022-04-19] MEDS: clonazePAM 0.5 MG TABLET PO (08:58)
[2022-04-19] MEDS: Naltrexone HCl 50 MG TABLET PO (08:58)
[2022-04-19] MEDS: DULoxetine HCl 60 MG CAPSULE.DR PO (08:58)
[2022-04-19 09:10] VITALS: BP 142/89; PULSE 85; O2SAT 96
--- NOTE | 2022-04-19 11:38 | PM.PSYDC ---
DS: Providers Provider Date of Service: 04/19/22 Date of admission: 04/13/22 14:27 Primary care physician: Unknown Physician DS: Diagnosis Discharge Diagnosis (1) Borderline personality disorder: Status: Acute DS: Medications Discharge Medications Home Medications: Home Medications Medication Instructions Recorded Confirmed duloxetine 30 mg capsule,delayed 60 mg PO DAILY 04/13/22 04/13/22 release tizanidine 4 mg tablet 1 tab PO TID PRN Muscle Spasm 04/13/22 04/13/22 Previous Rx's Medication Instructions Recorded clonazepam 0.5 mg tablet 0.5 mg PO BID 30 days #60 tabs 04/19/22 clotrimazole 1 % topical cream 1 appl topical BID 30 days #100 04/19/22 grams naltrexone 50 mg tablet 50 mg PO DAILY 30 days #30 tabs 04/19/22 quetiapine 50 mg tablet 50 mg PO BID PRN agitation, severe 04/19/22 anxiety 30 days #60 tabs trazodone 100 mg tablet 100 mg PO BEDTIME 30 days #30 tabs 04/19/22 Mental Status Exam Mental Status Exam Narrative: Appearance: casually groomed, fair hygiene in NAD Behavior: cooperative psychomotor: no psychomotor agitation or retardation noted Speech: clear, normal rate/rhythm/volume, spontaneous Thought process:linear Thought content:no signs of psychosis. +SIBI earlier today. Mood: anxious Affect: variable but flexible SI:none SIBI: yes, scraping at self with sharp pencils seen at art group HI:none VH/AH: CAH to kill herself, MRE last night Delusions:none Insight/judgment:fair x 2. Memory/cog: alert, oriented x 3. grossly intact to conversational testing. Data Data Completed and Pending Completed studies during hospitalization [Text1]: 04/13/22 04/14/22 04/14/22 06:07 08:28 08:28 WBC RBC Hgb Hct MCV MCH MCHC RDW Plt Count MPV Immature Gran % (Auto) Neut % (Auto) Lymph % (Auto) Reeves % (Auto) Eos % (Auto) Baso % (Auto) Lymph # (Auto) Reeves # (Auto) Eos # (Auto) Baso # (Auto) Abs Immat Gran (auto) Absolute Neuts (auto) Absolute Nucleated RBC Nucleated RBC % (auto) Sodium 140 Potassium 4.3 Chloride 108 Carbon Dioxide 24 Anion Gap 12 BUN 13 Creatinine 0.69 Estim Creat Clear Calc 138.2 Estimated GFR > 60 Fasting Glucose 98 Estimat Average Glucose 108 Hemoglobin A1c % 5.4 Calcium 9.1 Total Bilirubin 0.9 AST 18 ALT 14 Alkaline Phosphatase 125 H C-React Prot High Sens Total Protein 7.0 Albumin 4.0 Triglycerides 102 Cholesterol 150 LDL Cholesterol, Calc 96 HDL Cholesterol 34 Vitamin B12 TSH 1.33 COVID-19 (CAT) Negative COVID-19 Clin Com See Note 04/14/22 04/15/22 04/17/22 08:28 11:47 12:55 WBC 6.7 RBC 4.64 Hgb 13.3 Hct 40.4 MCV 87.1 MCH 28.7 MCHC 32.9 RDW 12.4 Plt Count 272 MPV 9.7 Immature Gran % (Auto) 0.2 Neut % (Auto) 71.0 Lymph % (Auto) 19.8 L Reeves % (Auto) 8.0 Eos % (Auto) 0.5 Baso % (Auto) 0.5 Lymph # (Auto) 1.3 Reeves # (Auto) 0.5 Eos # (Auto) 0.0 Baso # (Auto) 0.0 Abs Immat Gran (auto) 0.01 Absolute Neuts (auto) 4.7 Absolute Nucleated RBC 0.000 Nucleated RBC % (auto) 0.0 Sodium Potassium Chloride Carbon Dioxide Anion Gap BUN Creatinine Estim Creat Clear Calc Estimated GFR Fasting Glucose Estimat Average Glucose Hemoglobin A1c % Calcium Total Bilirubin AST ALT Alkaline Phosphatase C-React Prot High Sens 1.0 Total Protein Albumin Triglycerides Cholesterol LDL Cholesterol, Calc HDL Cholesterol Vitamin B12 296 TSH COVID-19 (CAT) COVID-19 Clin Com DS: Summary Hospital Course Hospital Course: per 04/14 admission note: Mrs. Rodríguez is 31 year-old woman with hx of Borderline Personality Disorder. She self presented to [facility] [place] she had superficial cut on right tight that she disclosed to her OT. Utox positive for benzo. On the unit, pt presents with good insight into her diagnosis in that she states she suffers from chronic sense of emptiness, fear of abandonment, reports remote hx of self injurious behaviors not with intent to end her life which she had not engaged in until recently due to increase stress. She reports her and her were foster parents to child they have been caring for since he was 3 days old for the past 3 years and apparently open adoption was coming soon but DCF decided to reunite pt with bio mother. Pt also reports she has experienced weakness of bilat lower extremities, falls- pt had recent admission at [facility] and work up was completed by neurology, rheumatology, and she has been given dx of conversion syndrome as there is no evident physiological cause for this weakness. Pt reports she is able to walk, but when standing for prolonged periods of time she feels tingling and weakness on both legs and then has a fall. She reports feeling overwhelmed and wanting stressors to go away, but denies any plan or intent to . Pt reports fair sleep with trazodone. no hx of VH/AH. Past Psychiatric History: Inpatient: one prior several years ago in [place] OP: none currently but reports she had extensive CBT therapy, which is event by degree of insight into her mental health condition. ? Suicide attempts: none Medical Evaluation Reviewed: Yes [facility] Family History: Father- PTSD Social History: lives with and 4 children from ages 7 months- 15years old. Born in [place]. Substance History: denies Trauma History: hx of but no details disclosed. 04/15: Pt reports feeling so, so She reports feeling anxious at times. She reports she worries about her as she? has many things on her plate. She denies SI/HI. No self injurious behaviors. we discussed wheelchair has not been recommended by PT, and therefore she should have walker instead. will do PT consult here. continue current medications. 04/16: Noted some regression from pt's behaviors and increase in self injurious urges or at least report off, after wheelchair was removed due no clinical indication. Pt did not sleep well, crying at night, holding plastic spoon reporting urges to self harm not with intent of ending life. She was given clonazepam 1mg last time. This morning, pt on the floor holding again plastic spoon and reporting urges to self harm, needed much encouragement to return plastic utensil. Pt clearly states urges to self harm not with intent to end her life. this engineering technical writer explained to pt that we're not having 1:1 and self harm although not suicidal not allowed on unit, pt given other alternative such as holding ice on wrist. pt agrees not to self harm while unit, explained also to pt that it will not prolonged admission, which pt understands and is in agreement. Pt reports voices of past trauma but these do not appear psychosis in nature. pt in somewhat helpless position- asking attention from certain staff. 04/17: Pt reports intermittent thoughts of wanting to harm herself. She reports some improvement ? in urges to self harm right after taking naltrexon. She continues to report flashbacks of past trauma, suicidal ideation but clear in that she states she has no plan or intent to harm herself. 04/18: pt c/o CAH to kill herself, SIBI.? describes constant struggle to stop from hurting herself.? this morning she said the voices and thoughts were overwhelming so she tied off her sheet and was preparing to try to strangle herself when her roommate called out to her.? she states that if her roommate hadn't intervened, she would have done it.? she notes with a wry grin that her came in for a visit and met with LATANYA tim nobody informed the of this morning's event and the was quite angry.? per staff, on 1:1.? c/o AH.? increased anxiety and depression.? +SIBI.? found on floor of bathroom this morning with sheet tied around walker with plan to asphyxiate herself (then she was placed on 1:1). 04/19: seen with cable installer repairer helper. stable overnight. no self-harm, some ideation. most recent AH last night. meds reviewed and reconciled, prescribed. pt prefers to stop home tramadol and continue with naltrexone instead. discharged to care of , aftercare in place. Precis: Mrs. Rodríguez is a 31 year-old woman with hx of Borderline Personality Disorder, pt very insight as to her own condition and triggers including chronic sense of emptiness, fear of abandonment, apparently not walking for past 1.5 months which has no medical explanation after admission to [facility] where there was extensive work up- given dx of conversion syndrome. Loss foster child who was reunited with bio mother after 3 years of caring for him. Utox positive for benzo. 04/14: We discussed risks, benefits and alternative treatment options. will continue cymbalta, trazodone, may consider short term clonazepam. she is also looking to reconnect with OP psych providers. 04/15 continue current medications. 04/16 pt with some regression in that she is reporting and trying to engage in self harm behaviors, not allowed to use plastic utensil at least in room, she agrees to this. No need for one to one as it will reinforced attention and regressive behaviors, pt understands this. encouraged pt to ask for ice if needed for self soothing, she agrees to try naltrexone to decrease urges to cut. report of voices, trauma related but not psychosis in nature. pt insightful about borderline dx and short admission is a must to prevent further regression. pt in agreement. 04/17 continue current tx. plan for dc on Monday. 04/18: reported SI with plan to asphyxiate with preparatory behaviors on the unit, placed on 1:1.? plan to discharge tomorrow.? pt struggling with SIBI. 04/19: no further incidents. discharged to care of . Time Spent with Patient Time attestation: Total time spent providing and/or coordinating discharge services: Time spent: Greater than 30 minutes Discharge Plan Discharge Patient Disposition: Home, Self-Care Discharge Diagnosis: Borderline Personality Disorder Referrals: Brendan Briggs (therapy intake) [Other] - 04/26/22 12:00 pm (Telehealth appointment) Becca Scott (psychiatrist) [Other] - 05/23/22 2:00 pm (Telehealth appointment) Becca Scott (psychiatrist) [Other] - 06/20/22 12:00 pm (Telehealth appointment) Giovanny Jorgensen MD [Physician] - 04/29/22 1:30 pm Discharge Medications: New naltrexone 50 mg Tablet 50 mg PO DAILY 30 Days Qty: 30 0RF clonazepam 0.5 mg Tablet 0.5 mg PO BID 30 Days Qty: 60 0RF trazodone 100 mg Tablet 100 mg PO BEDTIME 30 Days Qty: 30 0RF clotrimazole 1 % Cream 1 appl topical BID 30 Days Qty: 100 0RF Protocol: Apply to: Apply to: rash in tim area quetiapine 50 mg Tablet 50 mg PO BID PRN (Reason: agitation, severe anxiety) 30 Days Qty: 60 0RF Continued tizanidine 4 mg tablet 1 tab PO TID PRN (Reason: Muscle Spasm) duloxetine 30 mg capsule,delayed release(DR/EC) 60 mg PO DAILY Discontinued tramadol 50 mg tablet 1 tab PO BID PRN (Reason: pain) Discharge Orders: Discharge Order (Routine); Ordered 04/19/22 Ordered By: Fidel Garcia Diet: Advance to usual diet Activity on Discharge: As tolerated Stand Alone Forms: Patient Portal Discharge page, Community Support Print Language: Togolese Care Plan Goals: remain safe and stable in the outpatient treatment setting Health Concerns: none Plan of Treatment: take medications as prescribed, attend appointments as scheduled Assessment: chronic risk of harm to self, currently assessed as at baseline Discharge Date/Time: 04/19/22 11:53
--- NOTE | 2022-04-19 12:09 | PC.NURSE ---
Patient is alert & Oriented x 4. Patient is pleasant and cooperative. Reports an understanding of discharge teachings and instructions. Reports no SI/HI/AH/VH. Patient reports that she feels she is at her base line. No acute physical complaints at this time.
== END 2022-04-19 11:53 | disposition home or self-care (01) | DRG 752 ==
LOC: HO.ED 04-13 10:30 → HO.PADLT16 04-13 14:31
PROVIDERS: Admitting Provider Psychiatry & Neurology Psychiatry; Emergency Provider Emergency Medicine; Visit Provider Social Worker
DX: F60.3 Borderline personality disorder (principal); R45.851 Suicidal ideations; Z20.822 Contact with and (suspected) exposure to COVID-19; Z91.52 Personal history of nonsuicidal self-harm; Z87.891 Personal history of nicotine dependence; Z79.899 Other long term (current) drug therapy
CPT/HCPCS: 36415; 80053; 80061; 80143; 80179; 80307; 81025; 82077; 82607; 83036; 84443; 85025; 86141; 87635; 97116; 97162; 99285

== ENCOUNTER 2022-05-13 10:59 | Emergency (ER) | payer OTHER, SELFPAY ==
[2022-05-13 11:12] VITALS: BP 150/90; PULSE 106; RESP 16; TEMP 36.8; O2SAT 95; BMI 33.0
[2022-05-13 12:11] LABS: COVID-19 Test Positive (Negative)
--- NOTE | 2022-05-13 12:26 | ECG_ITS ---
Test Reason : MEDICAL CLEARANCE Blood Pressure : / mmHG Vent. Rate : 083 BPM Atrial Rate : 083 BPM P-R Int : 132 ms QRS Dur : 084 ms QT Int : 390 ms P-R-T Axes : 019 042 010 degrees QTc Int : 458 ms Normal sinus rhythm Normal ECG No previous ECGs available Referred By: Pat Rios Electronically Signed By:NGHIA VARGHESE MD
[2022-05-13 12:50] LABS: MANUAL DIFF FLAG NO
[2022-05-13 12:52] LABS: Basophils Percent Auto 0.4 % (0-2); Eosinophils Absolute Auto 0.1 X10*3/uL (0.0-0.4); Hematocrit 38.4 % (37.0-47.0); Hemoglobin 12.9 g/dl (12.0-16.0); Imm Gran Abs Auto 0.02 X10*3/uL (0.00-0.03); Imm Gran Pct Auto 0.4 % (0.0-0.4); Lymphocytes Absolute Auto 1.2 X10*3/uL (1.2-4.9); Lymphocytes Percent Auto 23.2 % (20-40); Mean Corpuscular HGB Conc 33.6 g/dl (31.0-35.0); Mean Corpuscular Hemoglobin 28.5 pg (27.0-33.0); Mean Platelet Volume 9.8 fL (9.4-12.3); Monocytes Absolute Auto 0.3 X10*3/uL (0.1-1.2); Monocytes Percent Auto 6.3 % (2-11); Neutrophils Absolute Auto 3.6 x10*3/uL (2.0-8.3); Neutrophils Percent Auto 68.7 % (45-73); Platelet Count 214 X10*3/uL (160-400); Red Blood Count 4.52 X10*6/uL (4.20-5.50); Red Cell Distribution Width 12.3 % (11.0-16.0); White Blood Count 5.2 X10*3/uL (4.8-10.8)
[2022-05-13 12:57] LABS: Prothrombin Time 11.6 SEC (10.0-13.1)
[2022-05-13 13:06] LABS: Alanine Aminotransferase 16 U/L (0-31); Albumin Level 4.1 g/dL (3.5-5.0); Alkaline Phosphatase 112 U/L (39-117); Anion Gap 14 (12-20); Aspartate Amino Transferase 22 U/L (5-31); Bilirubin Total 0.5 mg/dL (0.0-1.0); Blood Urea Nitrogen 8 mg/dL (9-16); Calcium 8.6 mg/dL (8.4-10.2); Carbon Dioxide 21 mmol/L (22-29); Chloride 109 mmol/L (96-108); Creatinine Clr Calc Pharmacy 124.2; Estimated Glomerular Filt Rate > 60; Ethanol < 10 mg/dL; Glucose Random 120 mg/dL (60-115); Potassium 3.8 mmol/L (3.3-5.1); Sodium 140 mmol/L (135-145); Total Protein 7.2 g/dL (6.5-8.0)
[2022-05-13 13:12] LABS: HCG Quantitative < 2 mIU/mL
--- NOTE | 2022-05-13 13:28 | ED.PSYCH ---
HPI - Psych General Chief Complaint: Psychiatric Symptoms Stated Complaint: CRISIS Time Seen by Provider: 05/13/22 11:07 Source: patient Mode of arrival: ambulatory Limitations: language barrier ( Nepali-speaking) History of Present Illness HPI Narrative: 31-year-old female with a past medical history of borderline personality disorder, anxiety and depression presenting to the ED after her counselor was concerned about her symptoms therefore referred her to crisis in crisis team told her yesterday that she should come to the emergency department due to her symptoms. Patient reports she was admitted here on 04/14/2022 until 04/19/2022 and she was doing great up until 2 weeks ago she is unsure why she started having increased anxiety /depression with auditory visual hallucination with thoughts of injury therefore since her took all sharp objects out of the home and hid them she cannot cut herself she turned to drinking. She reports she has been drinking 4 cups of vodka. she last drank a few days ago. She denies any drug usage. She she denies an actual plan for SI. She reports she has been having auditory and visual hallucinations along with nightmares. Reports that she has 5 kids at home. Was recently diagnosed with a pituitary tumor and is being followed by Neurology and has been stressed about this due to she has been having some right-sided weakness and walking more towards the right. Reports that 2 of her cousins have a history of multiple sclerosis. The neurologist here told her that it is most likely multiple sclerosis versus conduction disorder. otherwise she denies any fevers, chills, dizziness, headaches, neck pain/ stiffness, trouble swallowing or breathing, Sore throat, cough, ear pain, nasal congestion /rhinorrhea, chest pain or shortness of breath, dyspnea on exertion, orthopnea, palpitations, paresthesias, black or bloody stools, abdominal pain, nausea / vomiting, dysuria, hematuria, abnormal vaginal discharge, lower extremity edema or calf tenderness, recent travel or sick contacts or any other symptoms complaints or concerns at this time. MD complaint: feels depressed, anxiety, hallucinations and alcohol abuse Onset (ago): week(s) (2) Duration: constant History of same: Yes Relieving factors: none Exacerbating factors: alcohol Context: recent alcohol abuse and significant life stressor Associated psychiatric symptoms: depression, racing thoughts, auditory hallucinations and visual hallucinations Associated symptoms: denies other symptoms Treatments prior to arrival: none Related Data Home Medications Medication Instructions Recorded Confirmed duloxetine 30 mg capsule,delayed 60 mg PO DAILY 04/13/22 05/13/22 release tizanidine 4 mg tablet 1 tab PO TID PRN Muscle Spasm 04/13/22 05/13/22 Previous Rx's Medication Instructions Recorded clonazepam 0.5 mg tablet 0.5 mg PO BID 30 days #60 tabs 04/19/22 clotrimazole 1 % topical cream 1 appl topical BID 30 days #100 04/19/22 grams naltrexone 50 mg tablet 50 mg PO DAILY 30 days #30 tabs 04/19/22 quetiapine 50 mg tablet 50 mg PO BID PRN agitation, severe 04/19/22 anxiety 30 days #60 tabs trazodone 100 mg tablet 100 mg PO BEDTIME 30 days #30 tabs 04/19/22 Allergies Allergy/AdvReac Type Severity Reaction Status Date / Time No Known Allergies Allergy Verified 04/11/22 22:06 Review of Systems Review of Systems: Constitutional : No Fever, No Chills ENT/Mouth : No Ear Pain, No Nasal Congestion, No sore throat Eyes: No Eye Pain, No Swelling, No Redness Cardiovascular : No Chest Pain, No SOB Respiratory : No Cough, No Sputum, No Dyspnea Gastrointestinal : No ingestions, No Nausea, No Vomiting, No Diarrhea, No Hematochezia, No Melena Genitourinary : No Dysuria, No Urinary Frequency, No Hematuria Musculoskeletal : No Myalgias Skin : N+ Chronic right sided weakness not worse pr patient at baseline, No additional/new weakness, No Skin Lesions, No rash Neuro : No Weakness, No Numbness, No Paresthesias, No Dizziness, No Headache Psych : + Anxiety, + Depression, + SI, + thoughts of self injury, No HI,+ AVH, Heme/Lymph: No Lymphadenopathy Endocrine : No Polyuria, No Polydipsia Yes all other systems are reviewed and are negative [facility] Past Medical History Attestation statement: The following information was validated with the patient. Source: old records reviewed, obtained from family and nursing notes reviewed Social History Social History Household Members: Spouse and Children Household Members Other:: Spouse and five children, 7 mos., 2 yrs, 3 yrs, 5 yrs, 12 yrs old. Housing: House Do you presently have visiting nurse or other home services: Yes (Home health) Patient Tobacco Use Status: Former Tobacco user Quit Date: One day. Years Smoked: Socially, quit 10 years ago. e-Cigarette/Vaping Use: Never Used Second Hand Smoke Exposure: No Substance Use Type: Marijuana, Prescription Drugs and Sedatives Advance Directives: Yes Advance Directives Information Provided: Yes Advance Directives on File: No service: No Physical Exam Vital Signs: Vital Signs: Last Vital Signs Temp 98.2 F 05/13/22 11:12 Pulse 106 H 05/13/22 11:12 Resp 16 05/13/22 11:12 BP 150/90 H 05/13/22 11:12 Pulse Ox 95 05/13/22 11:12 O2 Del Method 05/13/22 11:12 BMI result Body Mass Index 33.0 vital signs have been reviewed as normal and appeared to be correct. Blood pressure 150/90. Heart rate 106. Respiration rate normal. Temperature normal. Oxygen saturation normal. Appearance: Alert. Oriented X3. No acute distress. Head: Normal external exam. Normocephalic. Atraumatic. Eyes: PERRLA. EOMI. Conjunctiva and sclera normal. Eyelids normal. ENT: EAC normal. TM's Normal. Pharynx normal. Uvula midline. Moist mucous membranes. No trismus noted. No drooling noted. No muffled voice noted. Neck: Normal inspection. Neck supple. FROM. No adenopathy. Thyroid Normal. No meningeal signs. No neck mass noted. CVS: Normal heart rate and rhythm. Heart sound normal. No murmurs noted. Pulses normal throughout. Respiratory: No respiratory distress. Painless inspiration. Breath sounds normal. No wheezes/rales/rhonchi noted. Chest nontender. No accessory muscle usage noted or decreased air movement noted. Abdomen: Soft and nontender. Bowel sounds normal in all 4 quadrants. No distention noted. No organomegaly noted. No visible injury noted. Back: No CVA tenderness. Full range of motion noted. Skin: Skin warm and dry. Normal skin color. Normal skin turgor. No rashes/lesions/lacerations noted. Extremities: No lower extremity edema. Extremities exhibit normal range of motion. Extremities nontender. Neuro: Oriented X 3. No motor deficit. No sensory deficit. Reflexes normal. CN's II-XII intact bilaterally? Psych: Appearance grossly normal, well-kept, mental status normal, speech and movement normal, speech clear, patient appears very sad and anxious along with depressed. Is cooperative. Normal thought process. Normal thought content. Normal good insight. Judgment good. Course Course Course Narrative: 12:30pm - 31-year-old female with a past medical history of borderline personality disorder, anxiety and depression presenting to the ED after her counselor was concerned about her symptoms therefore referred her to crisis in crisis team told her yesterday that she should come to the emergency department due to her symptoms. Patient reports she was admitted here on 04/14/2022 until 04/19/2022 and she was doing great up until 2 weeks ago she is unsure why she started having increased anxiety /depression with auditory visual hallucination with thoughts of injury therefore since her took all sharp objects out of the home and hid them she cannot cut herself she turned to drinking. She reports she has been drinking 4 cups of vodka. she last drank a few days ago. She denies any drug usage. She she denies an actual plan for SI. She reports she has been having auditory and visual hallucinations along with nightmares. Reports that she has 5 kids at home. Was recently diagnosed with a pituitary tumor and is being followed by Neurology and has been stressed about this due to she has been having some right-sided weakness and walking more towards the right. Reports that 2 of her cousins have a history of multiple sclerosis. The neurologist here told her that it is most likely multiple sclerosis versus conduction disorder. Plan: labs, UA, drugs of abuse screen, EKG for medical clearance and re-evaluate. Reevaluation(s) Reevaluation #1: - labs returned and chloride 109. Carbon dioxide 21. BUN 8. Random glucose 120. Patient negative for . ETOH level negative. Patient positive for COVID. Otherwise all other labs are within normal limits. - Therefore at this time patient is placed in Physician observation because the patient and more time to be evaluated by crisis for possible inpatient psychiatric care. Will continue to monitor. Patient was updated about her COVID status and her who is in the waiting room was also updated and she went home. Time: 14:08 Reevaluation #2: - Patient was cleared by crisis. She reports that she spoke to psych nurse practitioner Faith and she stated patient will not benefit from being in patient as she regresses while in the unit. They did offer her partial hospitalization although patient refused. Therefore at this time safe to discharge the patient she does not have any plan for SI. With instructions to follow-up with her outpatient provider and to return if any new or worsening symptoms self isolate per CDC guidelines for positive COVID. Patient understands agrees with this plan. Time: 18:01 [facility] - Psych Medical Records Attestation: I reviewed the patient's medical records. Lab Data Attestation: I reviewed the patient's lab results. Result diagrams: 05/13/22 12:44 05/13/22 12:44 Labs: Lab Results 05/13/22 05/13/22 05/13/22 Range/Units 11:53 12:44 12:44 WBC 5.2 (4.8-10.8) X10*3/uL RBC 4.52 (4.20-5.50) X10*6/uL Hgb 12.9 (12.0-16.0) g/dl Hct 38.4 (37.0-47.0) % MCV 85.0 (80.0-98.0) fL MCH 28.5 (27.0-33.0) pg MCHC 33.6 (31.0-35.0) g/dl RDW 12.3 (11.0-16.0) % Plt Count 214 (160-400) X10*3/uL MPV 9.8 (9.4-12.3) fL Immature Gran % (Auto) 0.4 (0.0-0.4) % Neut % (Auto) 68.7 (45-73) % Lymph % (Auto) 23.2 (20-40) % [place] % (Auto) 6.3 (2-11) % Eos % (Auto) 1.0 (0-4) % Baso % (Auto) 0.4 (0-2) % Lymph # (Auto) 1.2 (1.2-4.9) X10*3/uL [place] # (Auto) 0.3 (0.1-1.2) X10*3/uL Eos # (Auto) 0.1 (0.0-0.4) X10*3/uL Baso # (Auto) 0.0 (0.0-0.2) X10*3/uL Abs Immat Gran (auto) 0.02 (0.00-0.03) X10*3/uL Absolute Neuts (auto) 3.6 (2.0-8.3) x10*3/uL Absolute Nucleated RBC 0.000 (0.0-0.012) X10*3/uL Nucleated RBC % (auto) 0.0 (0.0-0.2) /100WBC PT 11.6 (10.0-13.1) SEC INR 1.0 (0.9-1.1) Sodium (135-145) mmol/L Potassium (3.3-5.1) mmol/L Chloride (96-108) mmol/L Carbon Dioxide (22-29) mmol/L Anion Gap (12-20) BUN (9-16) mg/dL Creatinine (0.5-1.4) mg/dL Estim Creat Clear Calc Estimated GFR Random Glucose (60-115) mg/dL Calcium (8.4-10.2) mg/dL Magnesium (1.6-2.6) mg/dL Total Bilirubin (0.0-1.0) mg/dL AST (5-31) U/L ALT (0-31) U/L Alkaline Phosphatase (39-117) U/L Total Protein (6.5-8.0) g/dL Albumin (3.5-5.0) g/dL Beta HCG, Quant mIU/mL Ethyl Alcohol mg/dL COVID-19 (CAT) Positive A (Negative) COVID-19 Clin Com See Note 05/13/22 05/13/22 Range/Units 12:44 12:44 WBC (4.8-10.8) X10*3/uL RBC (4.20-5.50) X10*6/uL Hgb (12.0-16.0) g/dl Hct (37.0-47.0) % MCV (80.0-98.0) fL MCH (27.0-33.0) pg MCHC (31.0-35.0) g/dl RDW (11.0-16.0) % Plt Count (160-400) X10*3/uL MPV (9.4-12.3) fL Immature Gran % (Auto) (0.0-0.4) % Neut % (Auto) (45-73) % Lymph % (Auto) (20-40) % [place] % (Auto) (2-11) % Eos % (Auto) (0-4) % Baso % (Auto) (0-2) % Lymph # (Auto) (1.2-4.9) X10*3/uL [place] # (Auto) (0.1-1.2) X10*3/uL Eos # (Auto) (0.0-0.4) X10*3/uL Baso # (Auto) (0.0-0.2) X10*3/uL Abs Immat Gran (auto) (0.00-0.03) X10*3/uL Absolute Neuts (auto) (2.0-8.3) x10*3/uL Absolute Nucleated RBC (0.0-0.012) X10*3/uL Nucleated RBC % (auto) (0.0-0.2) /100WBC PT (10.0-13.1) SEC INR (0.9-1.1) Sodium 140 (135-145) mmol/L Potassium 3.8 (3.3-5.1) mmol/L Chloride 109 H (96-108) mmol/L Carbon Dioxide 21 L (22-29) mmol/L Anion Gap 14 (12-20) BUN 8 L (9-16) mg/dL Creatinine 0.74 (0.5-1.4) mg/dL Estim Creat Clear Calc 124.2 Estimated GFR > 60 Random Glucose 120 H (60-115) mg/dL Calcium 8.6 (8.4-10.2) mg/dL Magnesium 2.0 (1.6-2.6) mg/dL Total Bilirubin 0.5 (0.0-1.0) mg/dL AST 22 (5-31) U/L ALT 16 (0-31) U/L Alkaline Phosphatase 112 (39-117) U/L Total Protein 7.2 (6.5-8.0) g/dL Albumin 4.1 (3.5-5.0) g/dL Beta HCG, Quant < 2 mIU/mL Ethyl Alcohol < 10 mg/dL COVID-19 (CAT) (Negative) COVID-19 Clin Com ECG Data Attestation: I personally reviewed and interpreted this ECG as follows: ECG interpretation date: 05/13/22 ECG interpretation time: 13:11 Interpretation: Normal sinus rhythm ventricular rate of 83 with a normal AR interval normal QRS duration normal QT/QTC interval. No acute ischemic change are noted. Discharge Plan Discharge Clinical Impression: Borderline personality disorder, Depression, Acute anxiety, COVID-19 Patient Disposition: Home, Self-Care Instructions: COVID-19 (Coronavirus Disease 2019) (ED) Additional Instructions: you are COVID positive. Please self isolate per CDC guidelines. Return if any new or worsening symptoms. Follow-up with your outpatient provider. Prescriptions: No Action tizanidine 4 mg tablet 1 tab PO TID PRN (Reason: Muscle Spasm) duloxetine 30 mg capsule,delayed release(DR/EC) 60 mg PO DAILY naltrexone 50 mg Tablet 50 mg PO DAILY 30 Days Qty: 30 0RF clonazepam 0.5 mg Tablet 0.5 mg PO BID 30 Days Qty: 60 0RF trazodone 100 mg Tablet 100 mg PO BEDTIME 30 Days Qty: 30 0RF clotrimazole 1 % Cream 1 appl topical BID 30 Days Qty: 100 0RF Protocol: Apply to: Apply to: rash in tim area quetiapine 50 mg Tablet 50 mg PO BID PRN (Reason: agitation, severe anxiety) 30 Days Qty: 60 0RF Referrals: Physician,Unknown J [Primary Care Provider] - (your pcp) Print Language: Nepali
--- NOTE | 2022-05-13 15:59 | PC.NURSE ---
assumed care of pt at 1445, pt a&ox3, reporting 6/10 headache, CIWA = 3, urine sample pending - pt reports that she is incontinent of urine, but will let staff know if she thinks she is about to go, per prior nurse pt typically ambulates w a walker - unsteady at baseline, pt calm, no distress noted, has been sleeping this afternoon. no new orders at this time.
[2022-05-13] MEDS: Acetaminophen 325 MG TABLET 975 MG PO (16:35)
== END 2022-05-13 18:26 | disposition home or self-care (01) ==
PROVIDERS: Physician Assistant Medical; Emergency Provider Student in an Organized Health Care Education/Training Program
DX: F33.1 Major depressive disorder, recurrent, moderate (principal); U07.1 COVID-19; F41.1 Generalized anxiety disorder; F43.0 Acute stress reaction; R44.0 Auditory hallucinations; R44.1 Visual hallucinations; Z87.891 Personal history of nicotine dependence; Z79.899 Other long term (current) drug therapy
CPT/HCPCS: 36415; 80053; 82077; 83735; 84702; 85025; 85610; 87635; 93005; 99285

== ENCOUNTER 2022-07-13 15:09 | Outpatient (RCR) | payer OTHER, SELFPAY | END 2022-07-14 23:59 | disposition home or self-care (01) | LOC: HO.PHPA 15:09 | PROVIDERS: Visit Provider Psychiatry & Neurology Psychiatry | DX: F32.A Depression, unspecified (principal) ==

== ENCOUNTER → 2022-08-04 13:21 | Outpatient (BNVA) | payer OTHER, SELFPAY | PROVIDERS: PCP Internal Medicine; Visit Provider Nurse Practitioner Family | DX: G43.109 Migraine with aura, not intractable, without status migrainosus (principal); F44.4 Conversion disorder with motor symptom or deficit; F44.5 Conversion disorder with seizures or convulsions; F32.A Depression, unspecified; D35.2 Benign neoplasm of pituitary gland | CPT/HCPCS: 99202 ==

== ENCOUNTER 2022-09-20 18:16 | Emergency (ER) | payer OTHER, SELFPAY ==
--- NOTE | ~2022-09-20 | US_ITS ---
EXAMINATION: US PELVIS CLINICAL INFORMATION: Pelvic pain. Amenorrhea. COMPARISON: None TECHNIQUE: Ultrasound of the pelvis is performed using both transabdominal and transvaginal transducers along with Doppler. Transvaginal imaging is performed due to inadequate visualization transabdominally. FINDINGS: Uterus: No uterine mass. Uterus measures 8.9 x 4.5 x 5.5 cm. Endometrial thickness 1 cm. No fluid in the endometrial canal. Adnexa: Both ovaries are visualized. There is normal color flow to the adnexa. There is no ovarian torsion. There is no pelvic ascites or fluid collection. Right ovary measures 3.6 x 1.9 x 1.7 cm. 6.1 mL Left ovary measures 3.1 x 1.7 x 1.7 cm. 4.7 mL US/US pelvic complete IMPRESSION: Normal ultrasound of the pelvis.
--- NOTE | ~2022-09-20 | US_ITS ---
EXAMINATION: US PELVIS CLINICAL INFORMATION: Pelvic pain. Amenorrhea. COMPARISON: None TECHNIQUE: Ultrasound of the pelvis is performed using both transabdominal and transvaginal transducers along with Doppler. Transvaginal imaging is performed due to inadequate visualization transabdominally. FINDINGS: Uterus: No uterine mass. Uterus measures 8.9 x 4.5 x 5.5 cm. Endometrial thickness 1 cm. No fluid in the endometrial canal. Adnexa: Both ovaries are visualized. There is normal color flow to the adnexa. There is no ovarian torsion. There is no pelvic ascites or fluid collection. Right ovary measures 3.6 x 1.9 x 1.7 cm. 6.1 mL Left ovary measures 3.1 x 1.7 x 1.7 cm. 4.7 mL US/US pelvic ovarian doppler IMPRESSION: Normal ultrasound of the pelvis.
--- NOTE | 2022-09-20 18:22 | ED.ABDPAIN ---
HPI - Abdominal Pain General Chief Complaint: Abdominal Pain <ALEXANDRU Hardy - Last Filed: 09/20/22 18:28> Stated Complaint: Abd Pain, Chills, Vomiting <ALEXANDRU Hardy - Last Filed: 09/20/22 18:28> Time Seen by Provider: 09/21/22 00:08 <ALEXANDRU Hardy - Last Filed: 09/20/22 18:28> Source: patient and family (, Irina) <Godwin Byers MD - Last Filed: 09/21/22 01:15> Mode of arrival: ambulatory <Godwin Byers MD - Last Filed: 09/21/22 01:15> Limitations: no limitations <Godwin Byers MD - Last Filed: 09/21/22 01:15> History of Present Illness HPI narrative: 32-year-old female who presents emergency department for evaluation of abdominal pain. Patient states the last 4 days she has severe abdominal pain. She points to her suprapubic/pupil area when asked to localize the pain. She states the pain is a constant, knife-like pain which is 9/10 at its worst. She states she has felt hot and cold but did not take her temperature. She had nausea with no vomiting. She states that she has had urinary frequency with some dysuria. She has not noticed any vaginal discharge. Patient states that her menstrual period was 2 months prior and this is unusual for her. She states she has a history of kidney stones but this feels different than her kidney stones. She has been taking ibuprofen, naproxen and Tylenol without any relief for discomfort. The patient states that she was hospitalized approximately 2 week prior for psychiatric reasons and is now on all new medications. <Godwin Byers MD - Last Filed: 09/21/22 01:15> Related Data Home Medications: Home Medications Medication Instructions Recorded Confirmed duloxetine 30 mg capsule,delayed 60 mg PO DAILY 04/13/22 08/04/22 release gabapentin PO TID 08/04/22 08/04/22 hydralazine PO 08/04/22 08/04/22 metformin 500 mg tablet See Rx Instructions PO BID 08/04/22 08/04/22 mirtazapine PO 08/04/22 08/04/22 propranolol PO 08/04/22 08/04/22 Previous Rx's Medication Instructions Recorded naltrexone 50 mg tablet 50 mg PO DAILY 30 days #30 tabs 04/19/22 trazodone 100 mg tablet 100 mg PO BEDTIME 30 days #30 tabs 04/19/22 magnesium oxide 400 mg (241.3 mg 400 mg PO BEDTIME 30 days #30 tabs 08/04/22 magnesium) tablet riboflavin (vitamin B2) 400 mg 400 mg PO DAILY 30 days #30 tabs 08/04/22 tablet galcanezumab-gnlm 120 mg/mL 120 mg subcut ONCE 28 days #28 mL 08/29/22 subcutaneous pen injector (Emgality Pen) doxycycline hyclate 100 mg tablet 100 mg PO Q12H 14 days #28 tabs 09/21/22 metronidazole 500 mg tablet 500 mg PO BID 14 days #28 tabs 09/21/22 oxycodone 5 mg tablet 5 mg PO Q4H PRN pain #14 tabs 09/21/22 <ALEXANDRU Hardy - Last Filed: 09/20/22 18:28> Allergies/Adverse Reactions: Allergies Allergy/AdvReac Type Severity Reaction Status Date / Time iodine Allergy Unknown Rash Verified 08/04/22 13:47 <ALEXANDRU Hardy - Last Filed: 09/20/22 18:28> Review of Systems Review of Systems Yes all other systems are reviewed and are negative <Godwin Byers MD - Last Filed: 09/21/22 01:15> COUNT INCLUDES THE [facility] Past Medical History COUNT INCLUDES THE [facility] Narrative: Past medical history: Diabetes mellitus, hypertension, hyperlipidemia, pituitary microadenoma, kidney stones, seizures, migraines, borderline personality disorder. Surgical history: Gastric bypass surgery 8 years prior in [place]. Social history: Patient denies tobacco use. She occasionally drinks alcohol. She denies drug use. She is . She is here with her . <Godwin Byers MD - Last Filed: 09/21/22 01:15> Medical History: Medical History (Updated 09/21/22 @ 01:10 by oGdwin Byers MD) Fibromyalgia JACK (iron deficiency anemia) <ALEXANDRU Hardy - Last Filed: 09/20/22 18:28> Surgical History: Surgical History H/O gastric bypass History of carpal tunnel release <ALEXANDRU Hardy - Last Filed: 09/20/22 18:28> Family History Family History: Family History Mother Hypertension Arthritis Father Hypertension Maternal Grandmother Breast cancer Hx of cataract surgery Arthritis Diabetes Maternal Grandfather CAD (coronary artery disease) Paternal Grandfather Colon cancer <ALEXANDRU Hardy - Last Filed: 09/20/22 18:28> Social History Social History: Social History (Updated 08/04/22 @ 13:49 by Nidhi Dill CMA) Household Members: Spouse and Children Household Members Other:: Spouse and five children, 7 mos., 2 yrs, 3 yrs, 5 yrs, 12 yrs old. Housing: House Do you presently have visiting nurse or other home services: Yes (Home health) Alcohol intake: former Patient Tobacco Use Status: Former Tobacco user Quit Date: One day. Years Smoked: Socially, quit 10 years ago. e-Cigarette/Vaping Use: Never Used Second Hand Smoke Exposure: No Substance Use Type: Marijuana, Prescription Drugs and Sedatives Advance Directives: Yes Advance Directives on File: Yes Advance Directives Date on File: 05/17/22 service: No <ALEXANDRU Hardy - Last Filed: 09/20/22 18:28> Physical Exam ED Vital Signs: Vital Signs - 24 hr 09/20/22 18:23 09/21/22 00:53 Temperature 98.1 F 98.3 F Pulse Rate 100 71 Respiratory Rate 18 19 Blood Pressure 128/88 122/76 Pulse Oximetry 96 97 Oxygen Delivery Method Room Air Room Air BMI result Body Mass Index 35.5 <ALEXANDRU Hardy - Last Filed: 09/20/22 18:28> Vital Signs - 24 hr 09/20/22 18:23 09/21/22 00:53 Temperature 98.1 F 98.3 F Pulse Rate 100 71 Respiratory Rate 18 19 Blood Pressure 128/88 122/76 Pulse Oximetry 96 97 Oxygen Delivery Method Room Air Room Air BMI result Body Mass Index 35.5 <Godwin Byers MD - Last Filed: 09/21/22 01:15> Const Other: Awake, alert, female patient, pleasant, cooperative, answers all questions appropriately. Elevated BMI of 35.5 <Godwin Byers MD - Last Filed: 09/21/22 01:15> HENMT Head: Yes normal to inspection, Yes normocephalic and Yes atraumatic <Godwin Byers MD - Last Filed: 09/21/22 01:15> Ears: external ears normal <Godwin Byers MD - Last Filed: 09/21/22 01:15> General nose exam: Normal external nose present <Godwin Byers MD - Last Filed: 09/21/22 01:15> Face and sinus: Yes normal facial exam <Godwin Byers MD - Last Filed: 09/21/22 01:15> Mouth: Normal oral and palatal mucosa present <MD Doron Fine Last Filed: 09/21/22 01:15> Throat: Yes posterior oropharynx normal <Godwin Byers MD - Last Filed: 09/21/22 01:15> Eyes General: appearance normal, both eyes and all related structures <Godwin Byers MD - Last Filed: 09/21/22 01:15> Pupils: Equal, round and reactive pupils present <MD Doron Fine Last Filed: 09/21/22 01:15> Neck Neck: Yes normal visual inspection, Yes no lymphadenopathy, Yes trachea midline and Yes supple <Godwin Byers MD - Last Filed: 09/21/22 01:15> Chest Chest palpation & inspection: normal inspection of the chest and normal palpation of entire chest wall <Godwin Byers MD - Last Filed: 09/21/22 01:15> Resp Effort & Inspection: normal respiratory effort and able to speak in complete sentences <MD Doron Fine Last Filed: 09/21/22 01:15> Auscultation: clear to auscultation bilaterally <MD Doron Fine Last Filed: 09/21/22 01:15> Cardio Rate: regular rate <Godwin Byers MD - Last Filed: 09/21/22 01:15> Rhythm: regular rhythm <Godwin Byers MD - Last Filed: 09/21/22 01:15> Heart sounds: S1 normal heart sound present, S2 normal heart sound present and no murmurs <Godwin Byers MD - Last Filed: 09/21/22 01:15> GI Other: Abdomen is obese, normoactive bowel sounds patient has localized tenderness over the suprapubic area, no rebound, no voluntary or involuntary guarding <Godwin Byers MD - Last Filed: 09/21/22 01:15> General: Yes no CVA tenderness <Godwin Byers MD - Last Filed: 09/21/22 01:15> Back/Spine/Pelvis Back: no CVA tenderness <oGdwin Byers MD - Last Filed: 09/21/22 01:15> Skin General skin exam: no rashes or lesions noted <Godwin Byers MD - Last Filed: 09/21/22 01:15> Neuro Cranial nerves: Yes Equal, round and reactive pupils present <Godwin Byers MD - Last Filed: 09/21/22 01:15> Cognition (Neuro): normal cognition <Godwin Byers MD - Last Filed: 09/21/22 01:15> Extrem General: Yes normal to inspection <Godwin Byers MD - Last Filed: 09/21/22 01:15> Psych Appearance: grossly normal <Godwin Byers MD - Last Filed: 09/21/22 01:15> Speech and movement: Normal speech and movement present <Godwin Byers MD - Last Filed: 09/21/22 01:15> Affect: normal affect <Godwin Byers MD - Last Filed: 09/21/22 01:15> Attitude: cooperative <Godwin Byers MD - Last Filed: 09/21/22 01:15> Course Course Course Narrative: RME--32yo F w/PHMx fibromyalgia, anemia, PCOS c/o lower abdominal pain x 2 weeks and amenorrhea x2 mos. Patient here with denies chance of , dysuria, hematuria, vaginal discharge Abdomen soft with bilateral lower/suprapubic tenderness Labs, UA, , pelvic ultrasound ordered <ALEXANDRU Hardy - Last Filed: 09/20/22 18:28> Medical Decision Making Medical Decision Making [facility] Narrative: 32-year-old female who presents emergency department for evaluation of suprapubic abdominal pain times 4 days, the pain is constant, knife-like and is 9/10, she has had associated nausea, frequency but no dysuria. She has been taking naproxen, Tylenol and ibuprofen no refer pain. Vital signs were normal. Examination did reveal significant suprapubic tenderness. Pelvic examination did reveal a thick white vaginal and cervical discharge with significant cervical motion tenderness as well as tenderness palpation over the patient's uterus and adnexa bilaterally 0030: My independent interpretation of the patient's laboratory evaluation is as follows. CBC was normal. Chloride elevated 109, CO2 low at 19, glucose elevated 220, alk-phos elevated 122. Urine test was negative. Urinalysis was negative. Given the patient's unremarkable laboratory evaluation in her suprapubic tenderness, cervical motion tenderness, uterine tenderness and adnexal tender, I suspect the patient has pelvic inflammatory disease. Patient did have pelvic ultrasound with Doppler which revealed no acute findings and no evidence of ovarian torsion. Patient was treated with oxycodone 10 mg orally, Tylenol 975 mg orally, ceftriaxone with lidocaine 500 mg IM, doxycycline 100 mg orally and Flagyl 500 mg orally. Patient was given prescription for doxycycline 100 mg q.12 hours times 14 days, metronidazole 500 mg q.12 hours times 14 days, oxycodone 5 mg every 4 hours as needed for pain. She is advised to take Tylenol and ibuprofen as well. She was given printed and verbal instructions on PID and discharged home. <Godwin Beyrs MD - Last Filed: 09/21/22 01:15> Differential Diagnosis Differential diagnosis includes but is not limited to urinary tract infection, pelvic inflammatory disease, , ectopic <Godwin Byers MD - Last Filed: 09/21/22 01:15> Lab Data [facility] Lab Attestation statement: I reviewed the patient's lab results. <Godwin Byers MD - Last Filed: 09/21/22 01:15> Please see [facility] for discussion <Godwin Byers MD - Last Filed: 09/21/22 01:15> Result Diagrams: 09/20/22 18:34 09/20/22 18:34 <ALEXANDRU Hardy - Last Filed: 09/20/22 18:28> Labs: Lab Results 09/20/22 09/20/22 09/20/22 Range/Units 18:34 18:34 21:30 WBC 7.3 (4.8-10.8) X10*3/uL RBC 4.59 (4.20-5.50) X10*6/uL Hgb 13.0 (12.0-16.0) g/dl Hct 39.1 (37.0-47.0) % MCV 85.2 (80.0-98.0) fL MCH 28.3 (27.0-33.0) pg MCHC 33.2 (31.0-35.0) g/dl RDW 13.2 (11.0-16.0) % Plt Count 275 D (160-400) X10*3/uL MPV 9.6 (9.4-12.3) fL Immature Gran % (Auto) 0.3 (0.0-0.4) % Neut % (Auto) 64.1 (45-73) % Lymph % (Auto) 27.7 (20-40) % [place] % (Auto) 6.4 (2-11) % Eos % (Auto) 1.1 (0-4) % Baso % (Auto) 0.4 (0-2) % Lymph # (Auto) 2.0 (1.2-4.9) X10*3/uL [place] # (Auto) 0.5 (0.1-1.2) X10*3/uL Eos # (Auto) 0.1 (0.0-0.4) X10*3/uL Baso # (Auto) 0.0 (0.0-0.2) X10*3/uL Abs Immat Gran (auto) 0.02 (0.00-0.03) X10*3/uL Absolute Neuts (auto) 4.7 (2.0-8.3) x10*3/uL Absolute Nucleated RBC 0.000 (0.0-0.012) X10*3/uL Nucleated RBC % (auto) 0.0 (0.0-0.2) /100WBC Sodium 136 (135-145) mmol/L Potassium 4.3 (3.3-5.1) mmol/L Chloride 109 H (96-108) mmol/L Carbon Dioxide 19 L (22-29) mmol/L Anion Gap 12 (12-20) BUN 9 (9-16) mg/dL Creatinine 0.78 (0.5-1.4) mg/dL Estim Creat Clear Calc 121.0 Estimated GFR > 60 Random Glucose 220 H (60-115) mg/dL Calcium 8.8 (8.4-10.2) mg/dL Magnesium 1.9 (1.6-2.6) mg/dL Total Bilirubin 0.4 (0.0-1.0) mg/dL Direct Bilirubin < 0.2 (0.0-0.5) mg/dL AST 14 (5-31) U/L ALT 11 (0-31) U/L Alkaline Phosphatase 122 H (39-117) U/L Total Protein 7.8 (6.5-8.0) g/dL Albumin 4.3 (3.5-5.0) g/dL Lipase 24 (8-78) U/L Urine Color Yellow Urine Appearance Clear Urine pH 5.5 (5.0-9.0) Ur Specific [place] >= 1.030 H (1.005-1.025) Urine Protein Trace (Neg-Trace) mg/dL Urine Glucose (UA) Negative (Negative) mg/dL Urine Ketones Trace (Negative) mg/dL Urine Blood Negative (Negative) Urine Nitrite Negative (Negative) Ur Leukocyte Esterase Negative (Negative) Urine Test (NEGATIVE) 09/20/22 Range/Units 21:30 WBC (4.8-10.8) X10*3/uL RBC (4.20-5.50) X10*6/uL Hgb (12.0-16.0) g/dl Hct (37.0-47.0) % MCV (80.0-98.0) fL MCH (27.0-33.0) pg MCHC (31.0-35.0) g/dl RDW (11.0-16.0) % Plt Count (160-400) X10*3/uL MPV (9.4-12.3) fL Immature Gran % (Auto) (0.0-0.4) % Neut % (Auto) (45-73) % Lymph % (Auto) (20-40) % [place] % (Auto) (2-11) % Eos % (Auto) (0-4) % Baso % (Auto) (0-2) % Lymph # (Auto) (1.2-4.9) X10*3/uL [place] # (Auto) (0.1-1.2) X10*3/uL Eos # (Auto) (0.0-0.4) X10*3/uL Baso # (Auto) (0.0-0.2) X10*3/uL Abs Immat Gran (auto) (0.00-0.03) X10*3/uL Absolute Neuts (auto) (2.0-8.3) x10*3/uL Absolute Nucleated RBC (0.0-0.012) X10*3/uL Nucleated RBC % (auto) (0.0-0.2) /100WBC Sodium (135-145) mmol/L Potassium (3.3-5.1) mmol/L Chloride (96-108) mmol/L Carbon Dioxide (22-29) mmol/L Anion Gap (12-20) BUN (9-16) mg/dL Creatinine (0.5-1.4) mg/dL Estim Creat Clear Calc Estimated GFR Random Glucose (60-115) mg/dL Calcium (8.4-10.2) mg/dL Magnesium (1.6-2.6) mg/dL Total Bilirubin (0.0-1.0) mg/dL Direct Bilirubin (0.0-0.5) mg/dL AST (5-31) U/L ALT (0-31) U/L Alkaline Phosphatase (39-117) U/L Total Protein (6.5-8.0) g/dL Albumin (3.5-5.0) g/dL Lipase (8-78) U/L Urine Color Urine Appearance Urine pH (5.0-9.0) Ur Specific [place] (1.005-1.025) Urine Protein (Neg-Trace) mg/dL Urine Glucose (UA) (Negative) mg/dL Urine Ketones (Negative) mg/dL Urine Blood (Negative) Urine Nitrite (Negative) Ur Leukocyte Esterase (Negative) Urine Test NEGATIVE (NEGATIVE) <ALEXANDRU Hardy - Last Filed: 09/20/22 18:28> Lab Results 09/20/22 09/20/22 09/20/22 Range/Units 18:34 18:34 21:30 WBC 7.3 (4.8-10.8) X10*3/uL RBC 4.59 (4.20-5.50) X10*6/uL Hgb 13.0 (12.0-16.0) g/dl Hct 39.1 (37.0-47.0) % MCV 85.2 (80.0-98.0) fL MCH 28.3 (27.0-33.0) pg MCHC 33.2 (31.0-35.0) g/dl RDW 13.2 (11.0-16.0) % Plt Count 275 D (160-400) X10*3/uL MPV 9.6 (9.4-12.3) fL Immature Gran % (Auto) 0.3 (0.0-0.4) % Neut % (Auto) 64.1 (45-73) % Lymph % (Auto) 27.7 (20-40) % [place] % (Auto) 6.4 (2-11) % Eos % (Auto) 1.1 (0-4) % Baso % (Auto) 0.4 (0-2) % Lymph # (Auto) 2.0 (1.2-4.9) X10*3/uL [place] # (Auto) 0.5 (0.1-1.2) X10*3/uL Eos # (Auto) 0.1 (0.0-0.4) X10*3/uL Baso # (Auto) 0.0 (0.0-0.2) X10*3/uL Abs Immat Gran (auto) 0.02 (0.00-0.03) X10*3/uL Absolute Neuts (auto) 4.7 (2.0-8.3) x10*3/uL Absolute Nucleated RBC 0.000 (0.0-0.012) X10*3/uL Nucleated RBC % (auto) 0.0 (0.0-0.2) /100WBC Sodium 136 (135-145) mmol/L Potassium 4.3 (3.3-5.1) mmol/L Chloride 109 H (96-108) mmol/L Carbon Dioxide 19 L (22-29) mmol/L Anion Gap 12 (12-20) BUN 9 (9-16) mg/dL Creatinine 0.78 (0.5-1.4) mg/dL Estim Creat Clear Calc 121.0 Estimated GFR > 60 Random Glucose 220 H (60-115) mg/dL Calcium 8.8 (8.4-10.2) mg/dL Magnesium 1.9 (1.6-2.6) mg/dL Total Bilirubin 0.4 (0.0-1.0) mg/dL Direct Bilirubin < 0.2 (0.0-0.5) mg/dL AST 14 (5-31) U/L ALT 11 (0-31) U/L Alkaline Phosphatase 122 H (39-117) U/L Total Protein 7.8 (6.5-8.0) g/dL Albumin 4.3 (3.5-5.0) g/dL Lipase 24 (8-78) U/L Urine Color Yellow Urine Appearance Clear Urine pH 5.5 (5.0-9.0) Ur Specific [place] >= 1.030 H (1.005-1.025) Urine Protein Trace (Neg-Trace) mg/dL Urine Glucose (UA) Negative (Negative) mg/dL Urine Ketones Trace (Negative) mg/dL Urine Blood Negative (Negative) Urine Nitrite Negative (Negative) Ur Leukocyte Esterase Negative (Negative) Urine Test (NEGATIVE) 09/20/22 Range/Units 21:30 WBC (4.8-10.8) X10*3/uL RBC (4.20-5.50) X10*6/uL Hgb (12.0-16.0) g/dl Hct (37.0-47.0) % MCV (80.0-98.0) fL MCH (27.0-33.0) pg MCHC (31.0-35.0) g/dl RDW (11.0-16.0) % Plt Count (160-400) X10*3/uL MPV (9.4-12.3) fL Immature Gran % (Auto) (0.0-0.4) % Neut % (Auto) (45-73) % Lymph % (Auto) (20-40) % [place] % (Auto) (2-11) % Eos % (Auto) (0-4) % Baso % (Auto) (0-2) % Lymph # (Auto) (1.2-4.9) X10*3/uL [place] # (Auto) (0.1-1.2) X10*3/uL Eos # (Auto) (0.0-0.4) X10*3/uL Baso # (Auto) (0.0-0.2) X10*3/uL Abs Immat Gran (auto) (0.00-0.03) X10*3/uL Absolute Neuts (auto) (2.0-8.3) x10*3/uL Absolute Nucleated RBC (0.0-0.012) X10*3/uL Nucleated RBC % (auto) (0.0-0.2) /100WBC Sodium (135-145) mmol/L Potassium (3.3-5.1) mmol/L Chloride (96-108) mmol/L Carbon Dioxide (22-29) mmol/L Anion Gap (12-20) BUN (9-16) mg/dL Creatinine (0.5-1.4) mg/dL Estim Creat Clear Calc Estimated GFR Random Glucose (60-115) mg/dL Calcium (8.4-10.2) mg/dL Magnesium (1.6-2.6) mg/dL Total Bilirubin (0.0-1.0) mg/dL Direct Bilirubin (0.0-0.5) mg/dL AST (5-31) U/L ALT (0-31) U/L Alkaline Phosphatase (39-117) U/L Total Protein (6.5-8.0) g/dL Albumin (3.5-5.0) g/dL Lipase (8-78) U/L Urine Color Urine Appearance Urine pH (5.0-9.0) Ur Specific [place] (1.005-1.025) Urine Protein (Neg-Trace) mg/dL Urine Glucose (UA) (Negative) mg/dL Urine Ketones (Negative) mg/dL Urine Blood (Negative) Urine Nitrite (Negative) Ur Leukocyte Esterase (Negative) Urine Test NEGATIVE (NEGATIVE) <Godwin Byers MD - Last Filed: 09/21/22 01:15> Radiology Impression Discussion of test interpretation with radiology: I have reviewed the radiologist's reading. <Godwin Byers MD - Last Filed: 09/21/22 01:15> Radiologist Impression: EXAMINATION:? US PELVIS FINDINGS: Uterus: No uterine mass. Uterus measures 8.9 x 4.5 x 5.5 cm. Endometrial thickness 1 cm. No fluid in the endometrial canal. Adnexa: Both ovaries are visualized. There is normal color flow to the adnexa. There is no ovarian torsion.? There is no pelvic ascites or fluid collection. Right ovary measures 3.6 x 1.9 x 1.7 cm. 6.1 mL Left ovary measures 3.1 x 1.7 x 1.7 cm. 4.7 mL US/US pelvic complete IMPRESSION: Normal ultrasound of the pelvis. Dictated By: Dino Elizabeth MD Signed By:<Electronically signed by Dino Elizabeth MD in [place]> <Godwin Byers MD - Last Filed: 09/21/22 01:15> Independent Historian Clinical information obtained from an independent historian. History obtained from or confirmed by: Spouse <Godwin Byers MD - Last Filed: 09/21/22 01:15> External Record Review External record reviewed: Outside ED record ([place] drug monitoring [place] was reviewed) <Godwin Byers MD - Last Filed: 09/21/22 01:15> Discharge Plan Discharge Clinical Impression: Acute pelvic inflammatory disease <ALEXANDRU Hardy - Last Filed: 09/20/22 18:28> Patient Disposition: Home, Self-Care <ALEXANDRU Hardy - Last Filed: 09/20/22 18:28> Additional Instructions: Your complete blood count and comprehensive metabolic panel unremarkable except for an elevated glucose of 220. The urine test was negative. Your urine test revealed no evidence of a urine infection The pelvic ultrasound did not reveal any ovarian cyst or other abnormalities to explain your pain. Pelvic inflammatory disease instructions: Your presentation and physical findings are consistent with pelvic inflammatory disease (PID). Approximately 30% of the time, pelvic inflammatory disease is caused by sexually transmitted diseases such as Trichomonas, gonorrhea or chlamydia. Approximately 70% of the time, pelvic inflammatory disease is caused by abnormal bacteria (anaerobic bacteria) in your vagina that can cause an infection Medications You received ceftriaxone 500 mg intramuscularly here in the emergency department, Take doxycycline 100 mg, 1 pill twice a day for 14 days. Take metronidazole 500 mg, 1 pill twice a day for 14 days. These 3 antibiotics treat sexually transmitted diseases such as gonorrhea, chlamydia and Trichomonas as well as anaerobic bacteria that can cause pelvic inflammatory disease. You also received the 1st dose of doxycycline 100 mg orally and metronidazole 500 mg orally here in the emergency department Take ibuprofen 200 mg pills, 2 pills every 6 hours as needed for pain. Take Tylenol (acetaminophen) 500 mg pills, 2 pills every 4 to 6 hours as needed for pain. Follow-Up Follow-up with your gynecology in 10-14 days. Pending laboratory tests: The doctor that follows up will need to review the following results with you: Bacterial vaginosis testing Gonorrhea and chlamydia (cervical swab) Trichomonas testing You can also check these results on the patient portal. Return precautions: Please return to the emergency department if your symptoms get worse if your pain does not go away in 24-48 hours or if you develop any symptoms that are concerning to you. <ALEXANDRU Hardy - Last Filed: 09/20/22 18:28> Prescriptions: New metronidazole 500 mg tablet 500 mg PO BID 14 Days Qty: 28 0RF doxycycline hyclate 100 mg tablet 100 mg PO Q12H 14 Days Qty: 28 0RF oxycodone 5 mg tablet 5 mg PO Q4H PRN (Reason: pain) Qty: 14 0RF Rx Instructions: Patient may request partial fill; Partial Fill upon patient request. No Action Emgality Pen 120 mg/mL pen injector 120 mg subcut ONCE 28 Days Qty: 28 6RF duloxetine 30 mg capsule,delayed release(DR/EC) 60 mg PO DAILY naltrexone 50 mg Tablet 50 mg PO DAILY 30 Days Qty: 30 0RF trazodone 100 mg Tablet 100 mg PO BEDTIME 30 Days Qty: 30 0RF mirtazapine PO gabapentin PO TID hydralazine PO propranolol PO metformin 500 mg tablet See Rx Instructions PO BID Rx Instructions: 1000mg qam and 500mg qpm orally 2 times a day; magnesium oxide 400 mg (241.3 mg magnesium) tablet 400 mg PO BEDTIME 30 Days Qty: 30 6RF Rx Instructions: may hold for loose stools riboflavin (vitamin B2) 400 mg tablet 400 mg PO DAILY 30 Days Qty: 30 6RF <ALEXANDRU Hardy - Last Filed: 09/20/22 18:28>
[2022-09-20 18:23] VITALS: BP 128/88; PULSE 100; RESP 18; TEMP 36.7; O2SAT 96; BMI 35.5
[2022-09-20 18:39] LABS: MANUAL DIFF FLAG NO
[2022-09-20 18:41] LABS: Basophils Percent Auto 0.4 % (0-2); Eosinophils Absolute Auto 0.1 X10*3/uL (0.0-0.4); Eosinophils Percent Auto 1.1 % (0-4); Hematocrit 39.1 % (37.0-47.0); Imm Gran Abs Auto 0.02 X10*3/uL (0.00-0.03); Imm Gran Pct Auto 0.3 % (0.0-0.4); Lymphocytes Percent Auto 27.7 % (20-40); Mean Corpuscular HGB Conc 33.2 g/dl (31.0-35.0); Mean Corpuscular Hemoglobin 28.3 pg (27.0-33.0); Mean Corpuscular Volume 85.2 fL (80.0-98.0); Mean Platelet Volume 9.6 fL (9.4-12.3); Monocytes Absolute Auto 0.5 X10*3/uL (0.1-1.2); Monocytes Percent Auto 6.4 % (2-11); Neutrophils Absolute Auto 4.7 x10*3/uL (2.0-8.3); Neutrophils Percent Auto 64.1 % (45-73); Platelet Count 275 X10*3/uL (160-400); Red Blood Count 4.59 X10*6/uL (4.20-5.50); Red Cell Distribution Width 13.2 % (11.0-16.0); White Blood Count 7.3 X10*3/uL (4.8-10.8)
[2022-09-20 18:56] LABS: Alanine Aminotransferase 11 U/L (0-31); Albumin Level 4.3 g/dL (3.5-5.0); Alkaline Phosphatase 122 U/L (39-117); Anion Gap 12 (12-20); Aspartate Amino Transferase 14 U/L (5-31); Bilirubin Direct < 0.2 mg/dL (0.0-0.5); Bilirubin Total 0.4 mg/dL (0.0-1.0); Blood Urea Nitrogen 9 mg/dL (9-16); Calcium 8.8 mg/dL (8.4-10.2); Carbon Dioxide 19 mmol/L (22-29); Chloride 109 mmol/L (96-108); Estimated Glomerular Filt Rate > 60; Glucose Random 220 mg/dL (60-115); Lipase 24 U/L (8-78); Magnesium 1.9 mg/dL (1.6-2.6); Potassium 4.3 mmol/L (3.3-5.1); Sodium 136 mmol/L (135-145); Total Protein 7.8 g/dL (6.5-8.0)
[2022-09-20 21:46] LABS: Appearance Urine Clear; Color Urine Yellow; Glucose Urine UA Negative (Negative); Leukocyte Esterase Urine Negative (Negative); Nitrite Urine Negative (Negative); PH 5.5 (5.0-9.0); Specific Gravity - Urine >= 1.030 (1.005-1.025); Urine Blood Negative (Negative); Urine Ketones Trace mg/dL (Negative); Urine Protein Trace mg/dL (Neg-Trace)
[2022-09-20 22:15] LABS: UPreg QC Valid YES; Urine Pregnancy NEGATIVE (NEGATIVE)
[2022-09-21 00:53] VITALS: BP 122/76; PULSE 71; RESP 19; TEMP 36.8; O2SAT 97
[2022-09-21] MEDS: oxyCODONE HCl Immed Release 5 MG TABLET 10 MG PO (01:15)
[2022-09-21] MEDS: Acetaminophen 325 MG TABLET 975 MG PO (01:15)
[2022-09-21] MEDS: metroNIDAZOLE 500 MG TABLET PO (01:15)
[2022-09-21] MEDS: Doxycycline Monohydrate 100 MG CAPSULE PO (01:17)
[2022-09-21] MEDS: cefTRIAXone sodium 500 MG, Lidocaine HCl 1 % MPF 1 ML IM (01:17)
--- NOTE | 2022-09-21 01:43 | PC.NURSE ---
Reviewed discharge instruction with pt verbalized understanding. Notified TANYA Perera.
[2022-09-21 12:02] LABS: CT PCR NOT DETECTED (Not Detect.); NG PCR NOT DETECTED (Not Detect.)
[2022-09-21 12:52] LABS: BV Int Neg Control Negative (Negative); BV Int Pos Control Positive (Positive)
== END 2022-09-21 01:44 | disposition home or self-care (01) ==
PROVIDERS: Physician Assistant; Emergency Provider Emergency Medicine Emergency Medical Services; PCP Internal Medicine
DX: N73.0 Acute parametritis and pelvic cellulitis (principal); R10.9 Unspecified abdominal pain; Z87.891 Personal history of nicotine dependence; Z79.899 Other long term (current) drug therapy
CPT/HCPCS: 0353U; 36415; 76856; 80048; 80076; 81003; 81025; 83690; 83735; 85025; 87480; 87510; 87660; 93975; 96372; 99283; 99284; J0696

== ENCOUNTER → 2022-09-30 09:03 | Outpatient (BNVA) | payer OTHER, SELFPAY | PROVIDERS: PCP Internal Medicine; Visit Provider Nurse Practitioner Family | DX: Z13.89 Encounter for screening for other disorder (principal) ==

== ENCOUNTER → 2022-10-21 11:29 | Outpatient (BNVA) | payer OTHER, MEDICAID, SELFPAY | PROVIDERS: PCP Internal Medicine; Visit Provider Nurse Practitioner Family | DX: Z13.89 Encounter for screening for other disorder (principal) ==

== ENCOUNTER 2022-12-15 16:31 | Emergency (ER) | payer OTHER, MEDICAID, SELFPAY ==
--- NOTE | ~2022-12-15 | CT_ITS ---
EXAMINATION: CT ABDOMEN AND PELVIS WITHOUT CONTRAST CLINICAL INFORMATION: Left flank pain COMPARISON: None available. TECHNIQUE: Multidetector volumetric imaging was performed from the superior aspect of the liver through the pubic symphysis. Sagittal and coronal reformatted images were obtained on the technologist's workstation. This CT examination was performed using dose optimization techniques as appropriate, variously including the following: *Automated exposure control *Adjustment of mA and/or kV according to patient size (this includes techniques or standardized protocols for targeted exams where dose is matched to indication/reason for exam; i.e. extremities or head) *Use of iterative reconstruction technique DLP: 831 mGy-cm FINDINGS: LUNG BASES: The visualized lung bases are unremarkable. LIVER, GALLBLADDER, AND BILIARY TREE: Changes of diffuse hepatic steatosis. No biliary ductal dilatation or focal lesion. The gallbladder is unremarkable with no evidence of radiopaque gallstones, gallbladder wall thickening, or obvious pericholecystic inflammatory changes. PANCREAS: Unremarkable. SPLEEN: Unremarkable. ADRENAL GLANDS: Unremarkable. KIDNEYS AND URETERS: Coarse calcification right renal cortex midpole overlying cortical scarring noted measuring up to 11 mm. No hydronephrosis. No perinephric abnormality. Left kidney unremarkable. BLADDER: Unremarkable. GASTROINTESTINAL TRACT: The small and large bowel are unremarkable. The appendix is unremarkable. Gastric bypass postsurgical changes. No obstruction. ABDOMINAL WALL: No significant hernia is appreciated. LYMPH NODES: Normal. VASCULAR: Unremarkable. PELVIC VISCERA: Unremarkable. OSSEOUS STRUCTURES: Unremarkable. CT/CT abdomen pelvis wo IV con IMPRESSION: No specific findings to explain patient's left-sided flank pain. No hydronephrosis or obstructive uropathy. Chronic findings as above. Fleischner guidelines were followed.
[2022-12-15 16:53] VITALS: BP 137/91; PULSE 104; RESP 18; TEMP 36.7; O2SAT 98; BMI 36.8
--- NOTE | 2022-12-15 17:16 | ED_ITS ---
HPI - Abdominal Pain General Chief Complaint: Abdominal Pain <ALEXANDRU Jose - Last Filed: 12/15/22 17:17> Stated Complaint: Abd pain/lower back pain <ALEXANDRU Jose - Last Filed: 12/15/22 17:17> Time Seen by Provider: 12/15/22 17:36 <ALEXANDRU Jose - Last Filed: 12/15/22 17:17> Source: patient and family (Significant other) <Silvestre Wills MD - Last Filed: 12/15/22 19:54> Mode of arrival: ambulatory <Silvestre Wills MD - Last Filed: 12/15/22 19:54> Limitations: no limitations <Silvestre Wills MD - Last Filed: 12/15/22 19:54> History of Present Illness HPI narrative: 32-year-old female came in for evaluation of bilateral flank pains started about 2 weeks ago, pain now is getting severe for the past week bilateral flank pain that radiates down to the bilateral groin area described as 10 out of severe dull aching pain, patient also been having dysuria and frequency urination for the past 2 days, patient with history of kidney stone felt like a kidney stone. Patient had a history of gastric bypass 7 years ago, patient also reporting irregular bowel movements but no diarrhea, no blood in the stool, no feeble, no chills. Past surgical history is significant for gastric bypass and x1. <Silvestre Wills MD - Last Filed: 12/15/22 19:54> Related Data Home Medications: Home Medications Medication Instructions Recorded Confirmed duloxetine 30 mg capsule,delayed 60 mg PO DAILY 04/13/22 10/21/22 release metformin 500 mg tablet See Rx Instructions PO BID 08/04/22 10/21/22 blood-glucose meter (FreeStyle #1 ea 09/30/22 10/21/22 Lite Meter kit) gabapentin 300 mg capsule 300 mg PO TID 09/30/22 10/21/22 quetiapine 400 mg tablet 400 mg PO BEDTIME 09/30/22 10/21/22 risperidone 3 mg tablet 3 mg PO BEDTIME 09/30/22 10/21/22 Previous Rx's Medication Instructions Recorded naltrexone 50 mg tablet 50 mg PO DAILY 30 days #30 tabs 04/19/22 magnesium oxide 400 mg (241.3 mg 400 mg PO BEDTIME 30 days #30 tabs 08/04/22 magnesium) tablet riboflavin (vitamin B2) 400 mg 400 mg PO DAILY 30 days #30 tabs 08/04/22 tablet galcanezumab-gnlm 120 mg/mL 120 mg subcut ONCE 28 days #28 mL 08/29/22 subcutaneous pen injector (Emgality Pen) doxycycline hyclate 100 mg tablet 100 mg PO Q12H 14 days #28 tabs 09/21/22 sumatriptan succinate 100 mg tablet 50 - 100 mg PO .COMPLEX PRN 10/21/22 migraine headache 30 days #12 tabs <ALEXANDRU Jose - Last Filed: 12/15/22 17:17> Allergies/Adverse Reactions: Allergies Allergy/AdvReac Type Severity Reaction Status Date / Time iodine Allergy Rash Verified 12/15/22 16:55 <ALEXANDRU Jose - Last Filed: 12/15/22 17:17> Review of Systems Review of Systems All other systems are reviewed and are negative Constitutional: Reports as per HPI and Reports no additional constitutional complaints Eyes: Reports as per HPI and Reports no additional eye complaints Reports system reviewed and no additional complaints, except as documented Cardiovascular: Reports as per HPI and Reports no additional cardiovascular complaints Respiratory: Reports as per HPI and Reports no additional respiratory complaints Gastrointestinal: Reports as per HPI and Reports no additional gastrointestinal complaints Genitourinary: Reports no additional female genitourinary complaints Musculoskeletal: Reports no additional musculoskeletal complaints Skin/Breast: Reports system reviewed and no additional complaints, except as docu Psychiatric: Reports no additional psychiatric complaints Endocrine: Reports no additional endocrine complaints Hematologic/Lymphatic: Reports no additional hematologic/lymphatic complaints Allergic/Immunologic: Reports no additional allergic/immunologic complaints Reports system reviewed and no additional complaints, except as documented and Reports Abnormal speech present <Silvestre Wills MD - Last Filed: 12/15/22 19:54> [facility] Past Medical History Medical History: Medical History Fibromyalgia JACK (iron deficiency anemia) <ALEXANDRU Jose - Last Filed: 12/15/22 17:17> Surgical History: Surgical History H/O gastric bypass History of carpal tunnel release History of section <ALEXANDRU Jose - Last Filed: 12/15/22 17:17> Family History Family History: Family History Mother Hypertension Arthritis Father Hypertension Maternal Grandmother Breast cancer Hx of cataract surgery Arthritis Diabetes Maternal Grandfather CAD (coronary artery disease) Paternal Grandfather Colon cancer <ALEXANDRU Jose - Last Filed: 12/15/22 17:17> Social History Social History: Social History Household Members: Spouse and Children Household Members Other:: Spouse and five children, 7 mos., 2 yrs, 3 yrs, 5 yrs, 12 yrs old. Housing: House Do you presently have visiting nurse or other home services: Yes (Home health) Alcohol intake: former Patient Tobacco Use Status: Former Tobacco user Quit Date: One day. Years Smoked: Socially, quit 10 years ago. e-Cigarette/Vaping Use: Never Used Second Hand Smoke Exposure: No Substance Use Type: Marijuana, Prescription Drugs and Sedatives Advance Directives: Yes Advance Directives on File: Yes Advance Directives Date on File: 05/17/22 service: No <ALEXANDRU Jose - Last Filed: 12/15/22 17:17> Physical Exam ED Vital Signs: Vital Signs - 24 hr 12/15/22 16:53 Temperature 98.1 F Pulse Rate 104 H Respiratory Rate 18 Blood Pressure 137/91 H Pulse Oximetry 98 Oxygen Delivery Method Room Air BMI result Body Mass Index 36.8 <ALEXANDRU Jose - Last Filed: 12/15/22 17:17> Vital Signs - 24 hr 12/15/22 16:53 Temperature 98.1 F Pulse Rate 104 H Respiratory Rate 18 Blood Pressure 137/91 H Pulse Oximetry 98 Oxygen Delivery Method Room Air BMI result Body Mass Index 36.8 Vital signs have been reviewed as appeared to be correct. Blood pressure n ormal. Heart rate normal. Respiration rate normal. Temperature normal. Oxygen saturation normal. <Silvestre Wills MD - Last Filed: 12/15/22 19:54> Appearance: Alert. Oriented X3. No acute distress. Head: Normal external exam. Normocephalic. Atraumatic. No Alonso signs noted. No raccoon eyes noted Eyes: PERRLA. EOMI. Conjunctiva and sclera normal. Eyelids normal. ENT: TM's Normal. Pharynx normal. Uvula midline. Moist mucous membranes. No trismus noted. No drooling noted. No muffled voice noted. Neck: Normal inspection. Neck supple. FROM. No adenopathy. Thyroid Normal. No meningeal signs. No neck mass noted. CVS: Normal heart rate and rhythm. Heart sound normal. No murmurs noted. Pulses normal throughout. Respiratory: No respiratory distress. Painless inspiration. Breath sounds normal. No wheezes/rales/rhonchi noted. Chest nontender. No accessory muscle usage noted or decreased air movement noted. Abdomen: Soft and nontender. Bowel sounds normal in all 4 quadrants. No distention noted. No organomegaly noted. No visible injury noted. Back: No CVA tenderness. Full range of motion noted. Skin: Skin warm and dry. Normal skin color. Normal skin turgor. No rashes/lesions/lacerations noted. Extremities: No lower extremity edema. Extremities exhibit normal range of motion. Extremities nontender. Neuro: Oriented X 3. Cranial nerve exam: II-XII are grossly intact No motor deficit. No sensory deficit. Reflexes normal. <Silvestre Wills MD - Last Filed: 12/15/22 19:54> Course Course Course Narrative: This is an RME: Additional HPI, ROS, PE not included below will be deferred to primary provider. 32-year-old female presents with bilateral flank pain left worse than right, intermittent, severe in nature, going on for the past few days. Reports that she has had a kidney stone and feels like this may be a stone. Patient denies fevers, chills, nausea, vomiting, hematuria. Reports she is not . Plan labs, imaging. <ALEXANDRU Jose - Last Filed: 12/15/22 17:17> Reevaluation(s) Reevaluation #1: 32-year-old female came in with bilateral flank pain radiating down to bilateral groin area, patient has unremarkable labs, urine is not reflecting UTI, CT of the abdomen and pelvis showing no acute pathology. <Silvestre Wills MD - Last Filed: 12/15/22 19:54> Medical Decision Making Differential Diagnosis Differential Diagnoses: The differential diagnosis associated with the presentation includes (Gastric bypass complication, small-bowel obstruction, appendicitis, colitis, diverticulitis, UTI, pyelonephritis, electrolyte abnormalities, severe anemia.) <Silvestre Wills MD - Last Filed: 12/15/22 19:54> Admission/Observation Consideration of admission/observation: Escalation of care including admission/observation considered <Silvestre Wills MD - Last Filed: 12/15/22 19:54> Lab Data MDM Lab Attestation statement: I reviewed the patient's lab results. <Silvestre Wills MD - Last Filed: 0 12/15/22 19:54> Result Diagrams: 12/15/22 17:41 12/15/22 17:41 <ALEXANDRU Jose - Last Filed: 12/15/22 17:17> Labs: Lab Results 12/15/22 12/15/22 12/15/22 Range/Units 17:40 17:41 17:41 WBC 8.6 (4.8-10.8) X10*3/uL RBC 4.37 (4.20-5.50) X10*6/uL Hgb 12.3 (12.0-16.0) g/dl Hct 37.3 (37.0-47.0) % MCV 85.4 (80.0-98.0) fL MCH 28.1 (27.0-33.0) pg MCHC 33.0 (31.0-35.0) g/dl RDW 12.7 (11.0-16.0) % Plt Count 270 (160-400) X10*3/uL MPV 10.1 (9.4-12.3) fL Immature Gran % (Auto) 0.3 (0.0-0.4) % Neut % (Auto) 65.7 (45-73) % Lymph % (Auto) 26.5 (20-40) % [place] % (Auto) 6.6 (2-11) % Eos % (Auto) 0.6 (0-4) % Baso % (Auto) 0.3 (0-2) % Lymph # (Auto) 2.3 (1.2-4.9) X10*3/uL [place] # (Auto) 0.6 (0.1-1.2) X10*3/uL Eos # (Auto) 0.1 (0.0-0.4) X10*3/uL Baso # (Auto) 0.0 (0.0-0.2) X10*3/uL Abs Immat Gran (auto) 0.03 (0.00-0.03) X10*3/uL Absolute Neuts (auto) 5.7 (2.0-8.3) x10*3/uL Absolute Nucleated RBC 0.000 (0.0-0.012) X10*3/uL Nucleated RBC % (auto) 0.0 (0.0-0.2) /100WBC Sodium 136 (135-145) mmol/L Potassium 3.6 (3.3-5.1) mmol/L Chloride 109 H (96-108) mmol/L Carbon Dioxide 18 L (22-29) mmol/L Anion Gap 13 (12-20) BUN 8 L (9-16) mg/dL Creatinine 0.81 (0.5-1.4) mg/dL Estim Creat Clear Calc 118.8 Estimated GFR > 60 Random Glucose 150 H (60-115) mg/dL Calcium 8.8 (8.4-10.2) mg/dL Magnesium 1.8 (1.6-2.6) mg/dL Total Bilirubin 0.7 (0.0-1.0) mg/dL AST 15 (5-31) U/L ALT 9 (0-31) U/L Alkaline Phosphatase 118 H (39-117) U/L Total Protein 7.3 (6.5-8.0) g/dL Albumin 4.1 (3.5-5.0) g/dL Lipase 21 (8-78) U/L Beta HCG, Quant < 2 mIU/mL Urine Color Urine Appearance Urine pH (5.0-9.0) Ur Specific [place] (1.005-1.025) Urine Protein (Neg-Trace) mg/dL Urine Glucose (UA) (Negative) mg/dL Urine Ketones (Negative) mg/dL Urine Blood (Negative) Urine Nitrite (Negative) Ur Leukocyte Esterase (Negative) COVID-19 (CAT) Negative (Negative) COVID-19 Clin Com See Note 12/15/22 Range/Units 18:12 WBC (4.8-10.8) X10*3/uL RBC (4.20-5.50) X10*6/uL Hgb (12.0-16.0) g/dl Hct (37.0-47.0) % MCV (80.0-98.0) fL MCH (27.0-33.0) pg MCHC (31.0-35.0) g/dl RDW (11.0-16.0) % Plt Count (160-400) X10*3/uL MPV (9.4-12.3) fL Immature Gran % (Auto) (0.0-0.4) % Neut % (Auto) (45-73) % Lymph % (Auto) (20-40) % [place] % (Auto) (2-11) % Eos % (Auto) (0-4) % Baso % (Auto) (0-2) % Lymph # (Auto) (1.2-4.9) X10*3/uL [place] # (Auto) (0.1-1.2) X10*3/uL Eos # (Auto) (0.0-0.4) X10*3/uL Baso # (Auto) (0.0-0.2) X10*3/uL Abs Immat Gran (auto) (0.00-0.03) X10*3/uL Absolute Neuts (auto) (2.0-8.3) x10*3/uL Absolute Nucleated RBC (0.0-0.012) X10*3/uL Nucleated RBC % (auto) (0.0-0.2) /100WBC Sodium (135-145) mmol/L Potassium (3.3-5.1) mmol/L Chloride (96-108) mmol/L Carbon Dioxide (22-29) mmol/L Anion Gap (12-20) BUN (9-16) mg/dL Creatinine (0.5-1.4) mg/dL Estim Creat Clear Calc Estimated GFR Random Glucose (60-115) mg/dL Calcium (8.4-10.2) mg/dL Magnesium (1.6-2.6) mg/dL Total Bilirubin (0.0-1.0) mg/dL AST (5-31) U/L ALT (0-31) U/L Alkaline Phosphatase (39-117) U/L Total Protein (6.5-8.0) g/dL Albumin (3.5-5.0) g/dL Lipase (8-78) U/L Beta HCG, Quant mIU/mL Urine Color Yellow Urine Appearance Clear Urine pH 5.5 (5.0-9.0) Ur Specific [place] >= 1.030 H (1.005-1.025) Urine Protein Negative (Neg-Trace) mg/dL Urine Glucose (UA) Negative (Negative) mg/dL Urine Ketones Trace (Negative) mg/dL Urine Blood Negative (Negative) Urine Nitrite Negative (Negative) Ur Leukocyte Esterase Negative (Negative) COVID-19 (CAT) (Negative) COVID-19 Clin Com <ALEAXNDRU Jose - Last Filed: 12/15/22 17:17> Lab Results 12/15/22 12/15/22 12/15/22 Range/Units 17:40 17:41 17:41 WBC 8.6 (4.8-10.8) X10*3/uL RBC 4.37 (4.20-5.50) X10*6/uL Hgb 12.3 (12.0-16.0) g/dl Hct 37.3 (37.0-47.0) % MCV 85.4 (80.0-98.0) fL MCH 28.1 (27.0-33.0) pg MCHC 33.0 (31.0-35.0) g/dl RDW 12.7 (11.0-16.0) % Plt Count 270 (160-400) X10*3/uL MPV 10.1 (9.4-12.3) fL Immature Gran % (Auto) 0.3 (0.0-0.4) % Neut % (Auto) 65.7 (45-73) % Lymph % (Auto) 26.5 (20-40) % [place] % (Auto) 6.6 (2-11) % Eos % (Auto) 0.6 (0-4) % Baso % (Auto) 0.3 (0-2) % Lymph # (Auto) 2.3 (1.2-4.9) X10*3/uL [place] # (Auto) 0.6 (0.1-1.2) X10*3/uL Eos # (Auto) 0.1 (0.0-0.4) X10*3/uL Baso # (Auto) 0.0 (0.0-0.2) X10*3/uL Abs Immat Gran (auto) 0.03 (0.00-0.03) X10*3/uL Absolute Neuts (auto) 5.7 (2.0-8.3) x10*3/uL Absolute Nucleated RBC 0.000 (0.0-0.012) X10*3/uL Nucleated RBC % (auto) 0.0 (0.0-0.2) /100WBC Sodium 136 (135-145) mmol/L Potassium 3.6 (3.3-5.1) mmol/L Chloride 109 H (96-108) mmol/L Carbon Dioxide 18 L (22-29) mmol/L Anion Gap 13 (12-20) BUN 8 L (9-16) mg/dL Creatinine 0.81 (0.5-1.4) mg/dL Estim Creat Clear Calc 118.8 Estimated GFR > 60 Random Glucose 150 H (60-115) mg/dL Calcium 8.8 (8.4-10.2) mg/dL Magnesium 1.8 (1.6-2.6) mg/dL Total Bilirubin 0.7 (0.0-1.0) mg/dL AST 15 (5-31) U/L ALT 9 (0-31) U/L Alkaline Phosphatase 118 H (39-117) U/L Total Protein 7.3 (6.5-8.0) g/dL Albumin 4.1 (3.5-5.0) g/dL Lipase 21 (8-78) U/L Beta HCG, Quant < 2 mIU/mL Urine Color Urine Appearance Urine pH (5.0-9.0) Ur Specific [place] (1.005-1.025) Urine Protein (Neg-Trace) mg/dL Urine Glucose (UA) (Negative) mg/dL Urine Ketones (Negative) mg/dL Urine Blood (Negative) Urine Nitrite (Negative) Ur Leukocyte Esterase (Negative) COVID-19 (CAT) Negative (Negative) COVID-19 Clin Com See Note 12/15/22 Range/Units 18:12 WBC (4.8-10.8) X10*3/uL RBC (4.20-5.50) X10*6/uL Hgb (12.0-16.0) g/dl Hct (37.0-47.0) % MCV (80.0-98.0) fL MCH (27.0-33.0) pg MCHC (31.0-35.0) g/dl RDW (11.0-16.0) % Plt Count (160-400) X10*3/uL MPV (9.4-12.3) fL Immature Gran % (Auto) (0.0-0.4) % Neut % (Auto) (45-73) % Lymph % (Auto) (20-40) % [place] % (Auto) (2-11) % Eos % (Auto) (0-4) % Baso % (Auto) (0-2) % Lymph # (Auto) (1.2-4.9) X10*3/uL [place] # (Auto) (0.1-1.2) X10*3/uL Eos # (Auto) (0.0-0.4) X10*3/uL Baso # (Auto) (0.0-0.2) X10*3/uL Abs Immat Gran (auto) (0.00-0.03) X10*3/uL Absolute Neuts (auto) (2.0-8.3) x10*3/uL Absolute Nucleated RBC (0.0-0.012) X10*3/uL Nucleated RBC % (auto) (0.0-0.2) /100WBC Sodium (135-145) mmol/L Potassium (3.3-5.1) mmol/L Chloride (96-108) mmol/L Carbon Dioxide (22-29) mmol/L Anion Gap (12-20) BUN (9-16) mg/dL Creatinine (0.5-1.4) mg/dL Estim Creat Clear Calc Estimated GFR Random Glucose (60-115) mg/dL Calcium (8.4-10.2) mg/dL Magnesium (1.6-2.6) mg/dL Total Bilirubin (0.0-1.0) mg/dL AST (5-31) U/L ALT (0-31) U/L Alkaline Phosphatase (39-117) U/L Total Protein (6.5-8.0) g/dL Albumin (3.5-5.0) g/dL Lipase (8-78) U/L Beta HCG, Quant mIU/mL Urine Color Yellow Urine Appearance Clear Urine pH 5.5 (5.0-9.0) Ur Specific [place] >= 1.030 H (1.005-1.025) Urine Protein Negative (Neg-Trace) mg/dL Urine Glucose (UA) Negative (Negative) mg/dL Urine Ketones Trace (Negative) mg/dL Urine Blood Negative (Negative) Urine Nitrite Negative (Negative) Ur Leukocyte Esterase Negative (Negative) COVID-19 (CAT) (Negative) COVID-19 Clin Com <Silvestre Wills MD - Last Filed: 12/15/22 19:54> Independent Interpretation I performed an independent interpretation of an: CT Scan (Abdomen and pelvis: No acute intra-abdominal pathology.) <Silvestre Wills MD - Last Filed: 12/15/22 19:54> Radiology Impression Discussion of test interpretation with radiology: I have reviewed the radiologist's reading. <Silvestre Wills MD - Last Filed: 12/15/22 19:54> Discharge Plan Discharge Clinical Impression: Abdominal pain <ALEXANDRU Jose - Last Filed: 12/15/22 17:17> Patient Disposition: Home, Self-Care <ALEXANDRU Jose - Last Filed: 12/15/22 17:17> Instructions: Abdominal Pain (ED) <ALEXANDRU Jose - Last Filed: 12/15/22 17:17> Prescriptions: No Action Emgality Pen 120 mg/mL pen injector 120 mg subcut ONCE 28 Days Qty: 28 6RF duloxetine 30 mg capsule,delayed release(DR/EC) 60 mg PO DAILY naltrexone 50 mg Tablet 50 mg PO DAILY 30 Days Qty: 30 0RF doxycycline hyclate 100 mg tablet 100 mg PO Q12H 14 Days Qty: 28 0RF metformin 500 mg tablet See Rx Instructions PO BID Rx Instructions: 1000mg qam and 500mg qpm orally 2 times a day; magnesium oxide 400 mg (241.3 mg magnesium) tablet 400 mg PO BEDTIME 30 Days Qty: 30 6RF Rx Instructions: may hold for loose stools riboflavin (vitamin B2) 400 mg tablet 400 mg PO DAILY 30 Days Qty: 30 6RF sumatriptan succinate 100 mg tablet 50 - 100 mg PO .COMPLEX PRN (Reason: migraine headache) 30 Days Qty: 12 6RF Rx Instructions: 50 - 100 mg orally at onset of headache, may repeat in 2 hrs PRN; max 2 tabs per day or 4 tabs/week (may take with Ibuprofen) gabapentin 300 mg capsule 300 mg PO TID quetiapine 400 mg tablet 400 mg PO BEDTIME risperidone 3 mg tablet 3 mg PO BEDTIME (DME) blood-glucose meter [FreeStyle Lite Meter] Kit See Rx Instructions .ROUTE .MEDSUPPLY Qty: 1 Rx Instructions: As directed <ALEXANDRU Jose - Last Filed: 12/15/22 17:17>
[2022-12-15 17:45] LABS: MANUAL DIFF FLAG NO
[2022-12-15 17:58] LABS: Basophils Percent Auto 0.3 % (0-2); Eosinophils Absolute Auto 0.1 X10*3/uL (0.0-0.4); Eosinophils Percent Auto 0.6 % (0-4); Hematocrit 37.3 % (37.0-47.0); Hemoglobin 12.3 g/dl (12.0-16.0); Imm Gran Abs Auto 0.03 X10*3/uL (0.00-0.03); Imm Gran Pct Auto 0.3 % (0.0-0.4); Lymphocytes Absolute Auto 2.3 X10*3/uL (1.2-4.9); Lymphocytes Percent Auto 26.5 % (20-40); Mean Corpuscular Hemoglobin 28.1 pg (27.0-33.0); Mean Corpuscular Volume 85.4 fL (80.0-98.0); Mean Platelet Volume 10.1 fL (9.4-12.3); Monocytes Absolute Auto 0.6 X10*3/uL (0.1-1.2); Monocytes Percent Auto 6.6 % (2-11); Neutrophils Absolute Auto 5.7 x10*3/uL (2.0-8.3); Neutrophils Percent Auto 65.7 % (45-73); Platelet Count 270 X10*3/uL (160-400); Red Blood Count 4.37 X10*6/uL (4.20-5.50); Red Cell Distribution Width 12.7 % (11.0-16.0); White Blood Count 8.6 X10*3/uL (4.8-10.8)
[2022-12-15 17:58] LABS: COVID-19 Test Negative (Negative); IDNOW Serial# 08D9AD1C
[2022-12-15 18:08] LABS: Alanine Aminotransferase 9 U/L (0-31); Albumin Level 4.1 g/dL (3.5-5.0); Alkaline Phosphatase 118 U/L (39-117); Anion Gap 13 (12-20); Aspartate Amino Transferase 15 U/L (5-31); Bilirubin Total 0.7 mg/dL (0.0-1.0); Blood Urea Nitrogen 8 mg/dL (9-16); Calcium 8.8 mg/dL (8.4-10.2); Carbon Dioxide 18 mmol/L (22-29); Chloride 109 mmol/L (96-108); Creatinine Clr Calc Pharmacy 118.8; Estimated Glomerular Filt Rate > 60; Glucose Random 150 mg/dL (60-115); Lipase 21 U/L (8-78); Magnesium 1.8 mg/dL (1.6-2.6); Potassium 3.6 mmol/L (3.3-5.1); Sodium 136 mmol/L (135-145); Total Protein 7.3 g/dL (6.5-8.0)
[2022-12-15 18:11] LABS: HCG Quantitative < 2 mIU/mL
[2022-12-15 18:20] LABS: Appearance Urine Clear; Color Urine Yellow; Glucose Urine UA Negative (Negative); Leukocyte Esterase Urine Negative (Negative); Nitrite Urine Negative (Negative); PH 5.5 (5.0-9.0); Specific Gravity - Urine >= 1.030 (1.005-1.025); Urine Blood Negative (Negative); Urine Ketones Trace mg/dL (Negative); Urine Protein Negative (Neg-Trace)
== END 2022-12-15 20:06 | disposition home or self-care (01) ==
PROVIDERS: Physician Assistant; Emergency Provider Emergency Medicine
DX: R10.9 Unspecified abdominal pain (principal); Z20.822 Contact with and (suspected) exposure to COVID-19; Z79.899 Other long term (current) drug therapy
CPT/HCPCS: 74176; 80053; 81003; 83690; 83735; 84702; 85025; 87635; 99284

== ENCOUNTER 2024-11-20 10:04 | Emergency (ER) | payer OTHER, SELFPAY ==
[2024-11-20 10:06] VITALS: BP 134/95; PULSE 103; RESP 18; TEMP 36.6; O2SAT 97; BMI 37.4
--- NOTE | 2024-11-20 11:35 | ED_ITS ---
HPI - General Adult General Chief complaint: General Medical Stated complaint: R Side Pain- R Shoulder, Losing Sensation Time Seen by Provider: 11/20/24 11:35 History of Present Illness ED Provider: Hilda PALOMO narrative: The patient is a 34-year-old female who reports a history of fibromyalgia. She has had chronic problems with pain in the right side of her body. She comes to the emergency room today because she has been having worsening pain in the region of the right shoulder, particularly in the back of the right shoulder near the scapula. The patient gave 4 months ago to a healthy child. It was an uncomplicated delivery. The patient denies any recent injuries or other events which might have provoked any worsening pain in her right shoulder although she is holding the 4-month-old child a lot. No fever, sweats, chills. No shortness of breath. No pleuritic pain. The patient is . Related Data Home Medications ?Medication ?Instructions ?Recorded ?Confirmed duloxetine 30 mg capsule,delayed 60 mg PO DAILY 04/13/22 10/21/22 release metformin 500 mg tablet See Rx Instructions PO BID 08/04/22 10/21/22 blood-glucose meter (FreeStyle #1 ea 09/30/22 10/21/22 Lite Meter kit) gabapentin 300 mg capsule 300 mg PO TID 09/30/22 10/21/22 quetiapine 400 mg tablet 400 mg PO BEDTIME 09/30/22 10/21/22 risperidone 3 mg tablet 3 mg PO BEDTIME 09/30/22 10/21/22 Previous Rx's ?Medication ?Instructions ?Recorded naltrexone 50 mg tablet 50 mg PO DAILY 30 days #30 tabs 04/19/22 riboflavin (vitamin B2) 400 mg 400 mg PO DAILY 30 days #30 tabs 08/04/22 tablet doxycycline hyclate 100 mg tablet 100 mg PO Q12H 14 days #28 tabs 09/21/22 galcanezumab-gnlm 120 mg/mL 120 mg subcut ONCE 28 days #28 mL 12/19/22 subcutaneous pen injector (Emgality Pen) magnesium oxide 400 mg (241.3 mg 400 mg PO BEDTIME 30 days #30 tabs 04/10/23 magnesium) tablet sumatriptan succinate 100 mg tablet 50 - 100 mg (0.5 - 1 x 100 mg) PO 10/27/23 .COMPLEX PRN migraine headache 30 days #12 tabs acetaminophen 500 mg capsule 1,000 mg (2 x 500 mg) PO Q8H PRN 11/20/24 fever or pain #14 caps ibuprofen 400 mg tablet 400 mg PO Q6H PRN pain #14 tabs 11/20/24 Allergies Allergy/AdvReac Type Severity Reaction Status Date / Time iodine Allergy Rash Verified 11/20/24 10:10 Review of Systems Review of Systems: Yes all other systems are reviewed and are negative PMF Past Medical History Medical History Fibromyalgia JACK (iron deficiency anemia) Surgical History H/O gastric bypass History of carpal tunnel release History of section Family History Family History Mother Hypertension Arthritis Father Hypertension Maternal Grandmother Breast cancer Hx of cataract surgery Arthritis Diabetes Maternal Grandfather CAD (coronary artery disease) Paternal Grandfather Colon cancer Social History Social History Household Members: Spouse and Children Household Members Other:: Spouse and five children, 7 mos., 2 yrs, 3 yrs, 5 yrs, 12 yrs old. Housing: House Do you presently have visiting nurse or other home services: Yes (Home health) Alcohol intake: former Comment: Patient on 1:1 for safety Patient Tobacco Use Status: Former Tobacco user Years Smoked: Socially, quit 10 years ago. Smoked in Last 30 Days: No e-Cigarette/Vaping Use: Never Used Second Hand Smoke Exposure: No Use of substances other than those prescribed or required for medical reasons: No Substance Use Type: Marijuana, Prescription Drugs and Sedatives Advance Directives: Yes Advance Directives on File: Yes Advance Directives Date on File: 05/17/22 Patient : No service: No Physical Exam ED Vital Signs: Vital Signs - 24 hr 11/20/24 10:06 Temperature 97.8 F Pulse Rate 103 H Respiratory Rate 18 Blood Pressure 134/95 H Pulse Oximetry 97 Oxygen Delivery Method Room Air BMI result Body Mass Index 37.4 Const Other: The patient is a 34-year-old woman who was awake and alert and who does not appear obviously acutely ill. She was her child when I entered the room. HENMT Other: Face is symmetrical, mucous membranes moist. Eyes General: appearance normal, both eyes and all related structures Neck Other: The appearance of the neck is normal. No neck swelling. She indicates that her right periscapular pain is worse when she turns her head to the right in indicates she has some pain on the right side of her neck when she does this. Resp Effort & Inspection: normal respiratory effort Auscultation: clear to auscultation bilaterally Cardio Rate: regular rate Rhythm: regular rhythm Heart sounds: S1 normal heart sound present and S2 normal heart sound present Skin Other: The skin is dry and unremarkable Neuro Other: The patient is awake and alert with a normal mental status. Cranial nerves are grossly intact. She seems to have intact strength and sensation in the right hand. She has symmetrical reflexes in the arms in the legs. Extrem Other: There is no deformity to the right shoulder or the right arm. She is able to put the arm through a good range of motion although she has pain when she attempts to lift the arm above the horizontal. She has a lot of tenderness in the muscles between the spine in the right scapula. Palpation in this region seems to reproduce her pain. Medical Decision Making Medical Decision Making MDM Narrative: The patient is a 34-year-old woman who was here for right shoulder pain. The pain seems to be centered around the periscapular muscles and palpation of the periscapular muscle seems to reproduce her pain. She does not seem acutely ill otherwise. She seems neurologically intact. It is possible she has sustained some worsening of chronic right-sided arm pain from holding her baby. She has been using acetaminophen without relief. I will advise her that ibuprofen is safe during as well and will prescribe 400 mg of ibuprofen q.6 hours as needed. I have also sent a prescription for acetaminophen. She should follow up with her primary care doctor's office for follow up and ongoing management and possible referral to physical therapy. Discharge Plan Discharge Clinical Impression: Periscapular pain of right shoulder Patient Disposition: Home, Self-Care Instructions: Shoulder Pain (ED) Additional Instructions: I think the pain you were experiencing is coming from irritated muscles near your right shoulder blade. It is safe for you to use ibuprofen in addition to acetaminophen while you are . I have sent a prescription for both of these medications to the [facility] pharmacy here in [place]. You may use these medications as directed. Please try to avoid use of your arm that exacerbate your pain. Please contact your primary care doctor's office today for follow up and ongoing care of this problem. I think it might be reasonable for you to try physical therapy again. Return to the emergency room if significantly worse. Prescriptions: New ibuprofen 400 mg tablet 400 mg PO Q6H PRN (Reason: pain) Qty: 14 0RF acetaminophen 500 mg capsule 1,000 mg PO Q8H PRN (Reason: fever or pain) Qty: 14 0RF No Action Emgality Pen 120 mg/mL pen injector 120 mg subcut ONCE 28 Days Qty: 28 6RF magnesium oxide 400 mg (241.3 mg magnesium) tablet 400 mg PO BEDTIME 30 Days Qty: 30 6RF Rx Instructions: may hold for loose stools sumatriptan succinate 100 mg tablet 50 - 100 mg PO .COMPLEX PRN (Reason: migraine headache) 30 Days Qty: 12 6RF Rx Instructions: 50 - 100 mg orally at onset of headache, may repeat in 2 hrs PRN; max 2 tabs per day or 4 tabs/week (may take with Ibuprofen) duloxetine 30 mg capsule,delayed release(DR/EC) 60 mg PO DAILY naltrexone 50 mg Tablet 50 mg PO DAILY 30 Days Qty: 30 0RF doxycycline hyclate 100 mg tablet 100 mg PO Q12H 14 Days Qty: 28 0RF metformin 500 mg tablet See Rx Instructions PO BID Rx Instructions: 1000mg qam and 500mg qpm orally 2 times a day; riboflavin (vitamin B2) 400 mg tablet 400 mg PO DAILY 30 Days Qty: 30 6RF gabapentin 300 mg capsule 300 mg PO TID quetiapine 400 mg tablet 400 mg PO BEDTIME risperidone 3 mg tablet 3 mg PO BEDTIME (DME) blood-glucose meter [FreeStyle Lite Meter] Kit See Rx Instructions .ROUTE .MEDSUPPLY Qty: 1 Rx Instructions: As directed Referrals: Giovanny Jorgensen MD [Primary Care Provider] - (Right shoulder pain) Print Language: Scottish
[2024-11-20] MEDS: Acetaminophen 325 MG TABLET 975 MG PO (12:28)
[2024-11-20] MEDS: Ibuprofen 400 MG TABLET PO (12:28)
--- OUTSIDE RECORDS SUMMARY | 2024-11-20 12:29 | XMS_ITS | Clinical Summary ---
Author Organization [facility] Address [address] [place] [id number] Phone Care Team Providers Care Sand Wheeler Name Role Phone Giovanny Jorgensen MD Primary Care Provider [phone] Allergies Active Allergy Reactions Criticality Noted Date Comments Iodinated Contrast Media Rash 06/16/2017 Medications FLUoxetine (PROzac) 20 mg tablet Take 1 tablet (20 mg total) by mouth daily. Active blood sugar diagnostic (FreeStyle Lite Strips) test strip TO TEST BLOOD SUGARS 3 TIMES DAILY. ICD O24.419 30 DAY USE FOR SENSOR BACK UP 05/28/2024 Active insulin lispro (HumaLOG KwikPen) 100 unit/mL injection pen Inject under the skin 3 (three) times a day before meals. 05/31/2024 Active Active Problems Problem Noted Date Diagnosed Date Microcytic hypochromic anemia 03/26/2024 Iron deficiency anemia 07/05/2017 Overview (03/26/2024): IV iron; Dr Larose Immunizations Name Administration Dates Next Due Influenza Quadravalent, MDCK , 0.5ml, preservative free (Flucelvax) 6mo and older 06/14/2023,06/25/2018 [employer] SARS-CoV-2 COVID -19, vector-nr, rS-Ad26, preservative free 02/24/2021 [employer] SARS-CoV-2 COVID-19, mRNA, LNP-S, preservative free 12/31/2021,02/24/2021 Tdap Tetanus diptheria acell ular pertussis (Boostrix; Adacel) 7yo and older 02/13/2018 Social History Tobacco Use Types Packs/Day Years Used Date Smoking Tobacco: Never Smokeless Tobacco: Never Tobacco Cessation:Counseling Given: Not Answered Alcohol Use Standard Drinks/Week Comments Yes 0 (1 standard drink = 0.6 oz pur e alcohol) Comments No Sex and Gender Information Value Date Recorded Sex Assigned at Not on file Legal Sex Female 4:32 AM EST Gender Identity Not on file Sexual Orientation Not on file Obstetrics History Last Filed Vital Signs Vital Sign Reading Time Taken Comments Blood Pressure 131/86 08/07/2024 10:30 AM EST Pulse 92 08/07/2024 10:30 AM EST Temperature - - Respiratory Rate - - Oxygen Saturation - - Inhaled Oxygen Concentration - - Weight 103 kg (227 lb 9.6 oz) 08/07/2024 10:30 A M EST Height 167.6 cm (5' 6 ) 08/07/2024 10:30 AM EST Body Mass Index 36.74 08/07/2024 10:30 AM EST Plan of Treatment Upcoming Encounters Date Type Department Care Team (Late st Contact Info) Description 12/05/2024 11:30 AM EDT Office Visit [facility] [address] [place] [address] Zane Sousa PA [address] [place] [address] Health Maintenance Due Date Last Done Comments Hepatitis B Vaccines (1 of 3 - 19+ 3-dose series) 2007 Cholesterol Screening (Lipid Panel) 07/09/2022 Depression Screening 07/09/2022 HIV Screening 07/09/2022 Hepatitis C Screening 07/09/2022 Social Influencers of Health Screening 07/09/2022 COVID-19 Vaccine ( season) 2024 12/31/2021, 12/28/2021, 02/24/2021, Additional history exists Cervical Cancer Screening: Pap Smear 08/25/2024 08/25/2021 Hypertension/CHF/CAD Annual BMP Blood Test 11/14/2024 Influenza Vaccine (Season Ended) 2025 06/14/2023, 06/25/2018 DTaP,Tdap,and Td Vaccines (3 - Td or Tdap) 05/08/2034 05/08/2024, 02/13/2018 HIB Vaccines Aged Out No longer eligi ble based on patient's age to complete this topic HPV Vaccines Aged Out No longer eligi ble based on patient's age to complete this topic Hepatitis A Vaccines Aged Out No long er eligible based on patient's age to complete this topic IPV Vaccines Aged Out No longer eligi ble based on patient's age to complete this topic MMR Vaccines Aged Out No longer eligi ble based on patient's age to complete this topic Meningococcal ACWY Vaccine Aged Out N o longer eligible based on patient's age to complete this topic Meningococcal B Vaccine Aged Out No l onger eligible based on patient's age to complete this topic Pneumococcal Vaccine: Pediatrics (0 to 5 Years) and At-Risk Patients (6 to 64 Years) Aged Out No longer eligible based on patient's age to complete this topic RSV Immunization Patients Under 20 months Aged Out No longer eligible based on patient's age to complete this topic Varicella Vaccines Aged Out No longer eligible based on patient's age to complete this topic Procedures Procedure Name Priority Date/Time Associated Diagnosis Comments PAP SMEAR Routine 08/25/2021 from Last 3 Months or Most Recently Relevant to Health Maintenance Results * Pap smear (08/25/2021) 08/25/2021 Narrative HISTORICAL TESTING LAB RESULTING AGENCY - 09/09/2021 7:45 AM EST [id number] THINPREP PAP, IMAGED: NEGATIVE FOR SQUAMOUS INTRAEPITHELIAL LESION AND MALIGNANCY . NOTE: THE PAP TEST IS A SCREENING TEST WITH AN INHERENT FALSE NEGATIVE RATE. AUTOMATED PRESCREENING OF ALL LIQUID BASED SPECIMENS IS PERFORMED BY THE THINPREP IMAGING SYSTEM UNLESS OTHERWISE STATED ANDREW VALLECILLO(ASCP) (CASE ELECTRONICALLY SIGNED 09 08 2021) RESULT OF APTIMA HIGH RISK HPV ASSAY: HIGH RISK HPV: ??NEGATIVE (SEROTYPES 16,18,31,33,35,39,45,51,52,56,58,59,66,68) COMPLETED ON 2021-08-30 ADEQUACY: SATISFACTORY ENDOCERVICAL/TRANSFORMATION ZONE COMPONENT PRESENT. SOURCE: THINPREP PAP HPV ANY DX: ??REFLEX 16 AND 18, CERVICAL, IMAGED CLINICAL INFORMATION: HPV ANY DIAGNOSIS. PAP HX NEG, Z12.4 Rupal Guaman CN LAB CYTOLOGY ORDERABLES Final Result HISTORICAL TESTING LAB RESULTING AGENCY from Last 3 Months or Most Recently Relevant to Health Maintenance [place] [address] [place] [address] [employer] Care Teams Sand Wheeler Relationship Specialty Start Date End Date Giovanny Jorgensen MD [address] [place] [address] PCP - General Internal Medicine 12/08/21
--- OUTSIDE RECORDS SUMMARY | 2024-11-20 12:29 | XMS_ITS | Clinical Summary ---
Author Organization [facility] Address [address] [place] [address] Care Team Providers Care Wheat And Oats Flake Miller Name Role Phone Giovanny Jorgensen MD Primary Care Provider [phone] Allergies Active Allergy Reactions Criticality Noted Date Comments Iodinated Contrast Media Rash Low 04/02/2020 Medications Medication Sig Dispensed Refills Start Date End Date Status pregabalin (LYRICA) capsule 100 mg Take 100 mg by mouth 2 (two) times a day. 0 Active traZODone (DESYREL) 50 MG tablet Take 50 mg by mouth every night at bedtime. 0 Active oxyCODONE (ROXICODONE) 5 MG immediate release tablet Take 5 mg by mouth every 4 (four) hours as needed for pain. 0 Active tiZANidine (ZANAFLEX) 4 MG tablet Take 4 mg by mouth every 6 (six) hours as needed. 0 Active Vit-Fe Ihb-TD-Witgm ( FORMULA PO) Take by mouth. 0 Active ferrous sulfate 325 (65 FE) MG tablet Take 1 tablet (325 mg total) by mouth every morning with breakfast. 0 Active aspirin EC 81 MG tablet Take 1 tablet (81 mg total) by mouth daily. 0 Active FLUoxetine (PROzac) 20 MG tablet Take 1 tablet (20 mg total) by mouth daily. 0 Active Cyanocobalamin 1000 MCG/ML KIT Inject 1,000 mcg as directed every 14 (fourteen) days. 2 kit 9 02/28/2024 Active Active Problems Problem Noted Date Diagnosed Date Microcytic hypochromic anemia 02/23/2024 Social History Tobacco Use Types Packs/Day Years Used Date Smoking Tobacco: Never Smokeless Tobacco: Never Alcohol Use Standard Drinks/Week Comments Yes 0 (1 standard drink = 0.6 oz pur e alcohol) social Sex and Gender Information Value Date Recorded Sex Assigned at Not on file Gender Identity Not on file Sexual Orientation Not on file Job Start Date Occupation Industry Not on file Not on file Not on file Last Filed Vital Signs Vital Sign Reading Time Taken Comments Blood Pressure 121/72 03/29/2024 10:27 AM EDT Pulse 99 03/29/2024 10:27 AM EDT Temperature 36.9 ??C (98.5 ??F) 03/29/2024 1 0:27 AM EDT Respiratory Rate 18 03/01/2024 10:2 4 AM EDT Oxygen Saturation 100% 03/29/2024 10: 27 AM EDT Inhaled Oxygen Concentration - - Weight 102.2 kg (225 lb 3.2 oz) 024 10:03 AM EDT Height - - Body Mass Index - - Plan of Treatment Health Maintenance Due Date Last Done Comments Hepatitis B Vaccines (1 of 3 - 3-dose series) 1988 Hepatitis C Screening 1988 Depression Screening 2000 Preventative Health Evaluation 2006 Cervical Cancer Screening (Pap Smear) 2009 COVID-19 Vaccine (2023-2 5 season) 2024 12/31/2021, 02/24/2021, 02/24/2021 Influenza Vaccine (#1) 2024 , 06/25/2018 DTap / Tdap / Td (2 - Td or Tdap) 02/14/2028 02/13/2018 Pneumococcal Vaccine Aged Out No long er eligible based on patient's age to complete this topic RSV Ped < 20 months Aged Out No longe r eligible based on patient's age to complete this topic Care Teams [employer] Fl[employer] Miller Relationship Specialty Start Date End Date Giovanny Jorgensen MD [address] [place] [address] PCP - General Internal Medicine 12/31/21
[2024-11-20 12:33] VITALS: BP 134/95; PULSE 103; RESP 18; TEMP 36.6; O2SAT 97
== END 2024-11-20 12:34 | disposition home or self-care (01) ==
PROVIDERS: Emergency Provider Emergency Medicine; PCP Internal Medicine
DX: M25.511 Pain in right shoulder (principal)
CPT/HCPCS: 99283

== ENCOUNTER 2024-12-26 12:43 | Emergency (ER) | payer OTHER, SELFPAY ==
--- NOTE | ~2024-12-26 | CT_ITS ---
CLINICAL HISTORY: abd pain, nausea, vomiting CT of the abdomen and pelvis utilizing intravenous contrast. Comparison 12/15/2022. Findings: There is fatty infiltration of the liver with hepatomegaly. The gallbladder is unremarkable. There is a nonobstructive right renal stone. No hydronephrosis. Spleen size is upper limits of normal. No peripancreatic inflammatory changes. No abdominal aortic aneurysm. There has been a gastric bypass. No diverticulitis is identified. Normal appendix. No bowel obstruction. Moderate stool in the colon. Mild colonic wall thickening is likely incomplete distention. The bladder is mildly distended. No free fluid is seen in the pelvis. 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 Impression: No diverticulitis or bowel obstruction. Normal appendix. Mild colonic wall thickening likely incomplete distention. Fatty liver with hepatomegaly. Nonobstructive right renal stone. Gastric bypass. Degenerative changes in the hips. This document has been electronically signed by: Parveen Muller MD on 12/26/2024 18:03:57
--- NOTE | ~2024-12-26 | XR_ITS ---
CLINICAL HISTORY: fever, weakness Two views of the chest. Findings: Body habitus limits the study. The heart is enlarged. No CHF is identified. No focal consolidation or pleural effusion is seen. Impression: No consolidation. This document has been electronically signed by: Parveen Muller MD on 12/26/2024 18:42:13
--- NOTE | 2024-12-26 13:16 | ED_ITS ---
HPI - Fever General Chief Complaint: Back Pain/Injury Stated Complaint: fever sent from urgent care Time Seen by Provider: 12/26/24 15:27 Source: patient and care trainer (all interactions with this patient were facilitated with an [facility] bilingual interpreter) Mode of arrival: ambulatory Limitations: language barrier (all interactions with this patient were facilitated with an [facility] bilingual interpreter) History of Present Illness ED Provider: Lindsey Stark PA-C HPI Narrative: Patient is a 34 year old assigned female at with a history of borderline personality disorder, migraines, functional neurological disorder with seizures, and being 5 months presenting to the emergency department today with left sided flank pain, fever, headache, rash, nausea, vomiting, and pain with urination. Patient states that over the last 2 days she has had significantly worse left sided flank pain with nausea, vomiting, fever, headache, and a rash. Patient states that it does hurt when she urinates. Patient states she delivered via without any incident. Patient denies any discharge from her vagina. Patient denies any dizziness, lightheadedness, abdominal pain, chills, blurry vision, double vision, loss of vision, chest pain, difficulty breathing, shortness of breath, back pain, night sweats, increased urinary frequency, increased urinary urgency, blood in her urine or stool, syncope or a near syncopal episode, recent trauma or falls, bowel incontinence, bladder incontinence, or any other complaints at this time. Related Data Home Medications ?Medication ?Instructions ?Recorded ?Confirmed duloxetine 30 mg capsule,delayed 60 mg PO DAILY 04/13/22 10/21/22 release metformin 500 mg tablet See Rx Instructions PO BID 08/04/22 10/21/22 blood-glucose meter (FreeStyle #1 ea 09/30/22 10/21/22 Lite Meter kit) gabapentin 300 mg capsule 300 mg PO TID 09/30/22 10/21/22 quetiapine 400 mg tablet 400 mg PO BEDTIME 09/30/22 10/21/22 risperidone 3 mg tablet 3 mg PO BEDTIME 09/30/22 10/21/22 Previous Rx's ?Medication ?Instructions ?Recorded naltrexone 50 mg tablet 50 mg PO DAILY 30 days #30 tabs 04/19/22 riboflavin (vitamin B2) 400 mg 400 mg PO DAILY 30 days #30 tabs 08/04/22 tablet doxycycline hyclate 100 mg tablet 100 mg PO Q12H 14 days #28 tabs 09/21/22 galcanezumab-gnlm 120 mg/mL 120 mg subcut ONCE 28 days #28 mL 12/19/22 subcutaneous pen injector (Emgality Pen) magnesium oxide 400 mg (241.3 mg 400 mg PO BEDTIME 30 days #30 tabs 04/10/23 magnesium) tablet sumatriptan succinate 100 mg tablet 50 - 100 mg (0.5 - 1 x 100 mg) PO 10/27/23 .COMPLEX PRN migraine headache 30 days #12 tabs acetaminophen 500 mg capsule 1,000 mg (2 x 500 mg) PO Q8H PRN 11/20/24 fever or pain #14 caps ibuprofen 400 mg tablet 400 mg PO Q6H PRN pain #14 tabs 11/20/24 cefuroxime axetil 250 mg tablet 250 mg PO BID 7 days #14 tabs 12/26/24 Allergies Allergy/AdvReac Type Severity Reaction Status Date / Time iodine Allergy Rash Verified 12/26/24 13:19 Review of Systems 2 Constitutional: Constitutional: Reports no additional constitutional complaints, Denies chills, Reports fever(s), Reports headache(s) and Denies night sweats Eyes: Eyes: Reports no additional eye complaints, Denies blurry vision, Denies change in vision, Denies diplopia, Denies eye discharge, Denies loss of vision and Denies eye pain ENT: Denies dizziness and Reports headache(s) Cardiovascular: Cardiovascular: Reports no additional cardiovascular complaints, Denies chest pain, Denies lightheadedness, Denies Loss of Consciousness and Denies dyspnea Respiratory: Respiratory: Reports no additional respiratory complaints and Denies dyspnea Gastrointestinal: Gastrointestinal: Reports no additional gastrointestinal complaints, Denies abdominal pain, Denies melena, Denies hematochezia, Denies change in bowel habits, Denies change in stool character, Reports nausea and Reports vomiting Genitourinary: Genitourinary: Denies hematuria, Denies urinary frequency, Reports dysuria, Reports flank pain, Denies urinary incontinence, Denies urinary hesitancy and Denies urinary urgency Musculoskeletal: Musculoskeletal: Reports no additional musculoskeletal complaints, Denies numbness and Denies tingling Neurologic: Denies dizziness, Reports headache(s), Denies loss of vision, Denies numbness and Denies tingling Psychiatric: Psychiatric: Reports no additional psychiatric complaints Endocrine: Endocrine: Reports no additional endocrine complaints Hematologic/Lymphatic: Hematologic/Lymphatic: Reports no additional hematologic/lymphatic complaints Allergic/Immunologic: Allergic/Immunologic: Reports no additional allergic/immunologic complaints PMFSH Past Medical History Attestation statement: The following information was validated with the patient. Source: old records reviewed and nursing notes reviewed Medical History Fibromyalgia JACK (iron deficiency anemia) Surgical History History of section History of carpal tunnel release H/O gastric bypass Family History Family History Mother Hypertension Arthritis Father Hypertension Maternal Grandmother Breast cancer Hx of cataract surgery Arthritis Diabetes Maternal Grandfather CAD (coronary artery disease) Paternal Grandfather Colon cancer Social History Social History Household Members: Spouse and Children Household Members Other:: Spouse and five children, 7 mos., 2 yrs, 3 yrs, 5 yrs, 12 yrs old. Housing: House Do you presently have visiting nurse or other home services: Yes (Home health) Alcohol intake: former Comment: Patient on 1:1 for safety Patient Tobacco Use Status: Former Tobacco user Years Smoked: Socially, quit 10 years ago. Smoked in Last 30 Days: No e-Cigarette/Vaping Use: Never Used Second Hand Smoke Exposure: No Use of substances other than those prescribed or required for medical reasons: No Substance Use Type: Marijuana, Prescription Drugs and Sedatives Advance Directives: Yes Advance Directives on File: Yes Advance Directives Date on File: 05/17/22 Patient : No service: No Physical Exam 2 Vital Signs: Vital Signs: Last Vital Signs Temp 98.1 F 12/26/24 18:24 Pulse 100 12/26/24 18:24 Resp 18 12/26/24 18:24 BP 130/80 12/26/24 18:24 Pulse Ox 96 12/26/24 18:24 O2 Del Method Room Air 12/26/24 18:24 BMI result Body Mass Index 37.4 Const: General: cooperative, no acute distress, alert and awake Nutritional Appearance: well nourished Orientation/consciousness: patient oriented x3 HEENT: Head: Yes normal to inspection and Yes atraumatic Ears: hearing grossly normal bilaterally and external ears normal General nose exam: Normal external nose present, no nasal discharge noted and no epistaxis Face and sinus: Yes normal facial exam, No abrasion and No laceration Mouth: Normal oral and palatal mucosa present, no drooling and no muffled voice Eyes: General: appearance normal, both eyes and all related structures P eriorbital: periorbital findings normal Eyelids: Yes eyelids normal C onjunctivae: conjunctivae normal Pupils: Equal, round and reactive pupils present EOM: EOMs intact bilaterally Neck: Neck: Yes normal visual inspection, Yes full ROM and Yes no lymphadenopathy Resp: Effort & Inspection: normal respiratory effort and able to speak in complete sentences Cardio: Rate: tachycardic Rhythm: regular rhythm Skin: Other: petechia type rash present to the volar left forearm Neuro: General: patient oriented x3, moves all extremities and CN's II-XI intact bilaterally Cranial nerves: Yes Equal, round and reactive pupils present Cognition (Neuro): normal cognition Extrem: General: Yes normal to inspection, Yes full ROM and Yes capillary refill normal Psych: Appearance: grossly normal Mental Status: mental status grossly normal Affect: normal affect Attitude: cooperative Thought process: N ormal thought process present Thought content: Normal thought content present Insight: Good insight present (Psych) Course Course Course Narrative: This is an RME: Additional HPI, ROS, PE not included below will be deferred to primary provider. RME assessment and note performed by: Marlys Arnold PA-C 34 yo female with PMHx of functional neurological disorder, migraine, borderline personality disorder, presents to ED from due to fever. She endorses pain of B/L flanks x1 week with dysuria, with pain increasing over the past 3 days. 2 days ago she noticed fever, chills. States she noticed a rash this morning that is non-pruritic. Denies any new products. Was given Ibuprofen 600mg in PE: Tachy 138BPM, afebrile in triage. Rash is present over abdomen, and B/L forearms, non pruritic Plan: Labs, viral swabs, strep swab Medications Administered Discontinued Medications Generic Name Dose Route Start Last Admin Trade Name Freq PRN Reason Stop Dose Admin Ceftriaxone Sodium 1 gm 12/26/24 15:27 12/26/24 15:45 Ceftriaxone Sodium 1 Gm Vial IVPUSH 12/26/24 15:28 1 gm ONCE ONE Administration Acetaminophen 1,000 mg in 100 mls @ 400 mls/hr 12/26/24 15:27 12/26/24 15:59 Ofirmev IV 12/26/24 15:41 Infused ONCE ONE Infusion Sodium Chloride 1,000 mls @ 999 mls/hr 12/26/24 16:15 12/26/24 18:10 Ns IV 12/26/24 17:15 Infused .Q1H1M ALON Infusion Iohexol 100 ml 12/26/24 16:49 12/26/24 16:49 Iohexol 350 Mg/Ml 100 Ml Infus..Btl IV 12/26/24 16:50 100 ml ONCE ONE Administration Ketorolac Tromethamine 15 mg 12/26/24 15:27 12/26/24 15:44 Ketorolac Tromethamine 15 Mg/Ml Vial IVPUSH 12/26/24 15:28 15 mg ONCE ONE Administration Ondansetron HCl 4 mg 12/26/24 15:27 12/26/24 15:45 Ondansetron Hcl 4 Mg/2 Ml Vial IVPUSH 12/26/24 15:28 4 mg ONCE ONE Administration Medical Decision Making Medical Decision Making MDM Narrative: Patient is a 34 year old assigned female at with a history of borderline personality disorder, migraines, functional neurological disorder with seizures, and being 5 months presenting to the emergency department today with left sided flank pain, fever, headache, rash, nausea, vomiting, and pain with urination. Patient's physical exam showed tachycardia and left volar forearm rash as noted but was otherwise unremarkable. Patient's blood work was unremarkable. Patient's urine showed trace leuks with 0-5 WBC and trace bacteria. Patient's chest x-ray and CT abd/pelvis were negative for any acute process. Patient's clinical presentation is most consistent with a cystitis / UTI. I explained my physical exam findings as well as all test results to the patient. I answered all questions asked by the patient. Patient was given IV fluids, Tylenol, Toradol, and ceftriaxone. I stressed the importance of the patient taking her medication as directed (either prescribed or as the over the counter packaging recommends). I stressed the importance of the patient following up with her primary care provider. I stressed the importance of the patient returning to the emergency department immediately if her symptoms were to worsen or if she were to develop any dizziness, shortness of breath, difficulty breathing, chest pain, blurry vision, loss of vision, nausea, vomiting, abdominal pain, fever, chills, back pain, or any other complaints. Patient verbalized agreement and understanding with this treatment plan and discharge. Differential Diagnosis Differential Diagnoses: The differential diagnosis associated with the presentation includes Pyelonephritis UTI Tachycardia Admission/Observation Consideration of admission/observation: Escalation of care including admission/observation considered Patient would have been admitted to the hospital had her work up had any findings where hospital admission was appropriate and her clinical presentation warranted hospital admission. Lab Data [facility] Lab Attestation statement: I reviewed the patient's lab results. My interpretation of these results are in the [facility] Rationale portion of this note. 12/26/24 13:41 12/26/24 13:41 Labs: Lab Results 12/26/24 12/26/24 12/26/24 Range/Units 13:31 13:32 13:41 WBC 4.4 L (4.8-10.8) X10*3/uL RBC 4.33 (4.20-5.50) X10*6/uL Hgb 12.0 (12.0-16.0) g/dl Hct 35.4 L (37.0-47.0) % MCV 81.8 (80.0-98.0) fL MCH 27.7 (27.0-33.0) pg MCHC 33.9 (31.0-35.0) g/dl RDW 14.0 (11.0-16.0) % Plt Count 205 (160-400) X10*3/uL MPV 9.6 (9.4-12.3) fL Immature Gran % (Auto) 0.2 (0.0-0.4) % Neut % (Auto) 80.6 H (45-73) % Lymph % (Auto) 8.9 L (20-40) % [place]ade % (Auto) 9.4 (2-11) % Eos % (Auto) 0.7 (0-4) % Baso % (Auto) 0.2 (0-2) % Lymph # (Auto) 0.4 L (1.2-4.9) X10*3/uL [place]ade # (Auto) 0.4 (0.1-1.2) X10*3/uL Eos # (Auto) 0.0 (0.0-0.4) X10*3/uL Baso # (Auto) 0.0 (0.0-0.2) X10*3/uL Abs Immat Gran (auto) 0.01 (0.00-0.03) X10*3/uL Absolute Neuts (auto) 3.5 (2.0-8.3) x10*3/uL Absolute Nucleated RBC 0.000 (0.0-0.012) X10*3/uL Nucleated RBC % (auto) 0.0 (0.0-0.2) /100WBC Sodium 138 (135-145) mmol/L Potassium 3.9 (3.3-5.1) mmol/L Chloride 110 H (96-108) mmol/L Carbon Dioxide 20 L (22-29) mmol/L Anion Gap 12 (12-20) BUN 10 (9-16) mg/dL Creatinine 0.75 (0.5-1.4) mg/dL Estim Creat Clear Calc 127.0 Estimated GFR > 60 Random Glucose 105 (60-115) mg/dL Lactic Acid 1.3 (0.5-2.0) mmol/L Calcium 9.0 (8.4-10.2) mg/dL Magnesium 1.9 (1.6-2.6) mg/dL Total Bilirubin 1.1 H (0.0-1.0) mg/dL AST 28 (5-31) U/L ALT 15 (0-31) U/L Alkaline Phosphatase 162 H (39-117) U/L Total Protein 7.5 (6.5-8.0) g/dL Albumin 4.4 (3.5-5.0) g/dL Lipase 21 (8-78) U/L TSH 0.73 (0.32-4.0) uIU/mL Beta HCG, Quant < 2 mIU/mL Urine Color Urine Appearance Urine pH (5.0-9.0) Ur Specific [place] (1.005-1.025) Urine Protein (Neg-Trace) mg/dL Urine Glucose (UA) (Negative) mg/dL Urine Ketones (Negative) mg/dL Urine Blood (Negative) Urine Nitrite (Negative) Ur Leukocyte Esterase (Negative) Urine RBC (0-2) /HPF Urine WBC (0-5) /HPF Ur Squamous Epith Cells (0-2) /HPF Urine Bacteria (None Seen) Hyaline Casts (0-2) /LPF Chlam trachomat DNA PCR (Not Detect.) Influenza Type A (PCR) NEGATIVE (Negative) Influenza Type B (PCR) NEGATIVE (Negative) N.gonorrhoeae DNA (PCR) (Not Detect.) RSV RNA Qual (PCR) NEGATIVE (Negative) SARS-CoV-2 RNA (RT-PCR) NEGATIVE (Negative) S. pyogenes GrpA TERRY Negative (Negative) T. vaginalis (PCR) (Not Detect) Bact vaginosis (PCR) (Negative) C. krusei/glabrata (PCR) (Not Detect) Camila group (PCR) (Not Detect) 12/26/24 12/26/24 Range/Units 13:47 17:12 WBC (4.8-10.8) X10*3/uL RBC (4.20-5.50) X10*6/uL Hgb (12.0-16.0) g/dl Hct (37.0-47.0) % MCV (80.0-98.0) fL MCH (27.0-33.0) pg MCHC (31.0-35.0) g/dl RDW (11.0-16.0) % Plt Count (160-400) X10*3/uL MPV (9.4-12.3) fL Immature Gran % (Auto) (0.0-0.4) % Neut % (Auto) (45-73) % Lymph % (Auto) (20-40) % [place]ade % (Auto) (2-11) % Eos % (Auto) (0-4) % Baso % (Auto) (0-2) % Lymph # (Auto) (1.2-4.9) X10*3/uL [place]ade # (Auto) (0.1-1.2) X10*3/uL Eos # (Auto) (0.0-0.4) X10*3/uL Baso # (Auto) (0.0-0.2) X10*3/uL Abs Immat Gran (auto) (0.00-0.03) X10*3/uL Absolute Neuts (auto) (2.0-8.3) x10*3/uL Absolute Nucleated RBC (0.0-0.012) X10*3/uL Nucleated RBC % (auto) (0.0-0.2) /100WBC Sodium (135-145) mmol/L Potassium (3.3-5.1) mmol/L Chloride (96-108) mmol/L Carbon Dioxide (22-29) mmol/L Anion Gap (12-20) BUN (9-16) mg/dL Creatinine (0.5-1.4) mg/dL Estim Creat Clear Calc Estimated GFR Random Glucose (60-115) mg/dL Lactic Acid (0.5-2.0) mmol/L Calcium (8.4-10.2) mg/dL Magnesium (1.6-2.6) mg/dL Total Bilirubin (0.0-1.0) mg/dL AST (5-31) U/L ALT (0-31) U/L Alkaline Phosphatase (39-117) U/L Total Protein (6.5-8.0) g/dL Albumin (3.5-5.0) g/dL Lipase (8-78) U/L TSH (0.32-4.0) uIU/mL Beta HCG, Quant mIU/mL Urine Color Yellow Urine Appearance Clear Urine pH 6.0 (5.0-9.0) Ur Specific [place] >= 1.030 H (1.005-1.025) Urine Protein Trace (Neg-Trace) mg/dL Urine Glucose (UA) Negative (Negative) mg/dL Urine Ketones Trace (Negative) mg/dL Urine Blood Negative (Negative) Urine Nitrite Negative (Negative) Ur Leukocyte Esterase Trace H (Negative) Urine RBC 0-2 (0-2) /HPF Urine WBC 0-5 (0-5) /HPF Ur Squamous Epith Cells 3-5 (0-2) /HPF Urine Bacteria Trace (None Seen) Hyaline Casts 0-2 (0-2) /LPF Chlam trachomat DNA PCR NOT DETECTED (Not Detect.) Influenza Type A (PCR) (Negative) Influenza Type B (PCR) (Negative) N.gonorrhoeae DNA (PCR) NOT DETECTED (Not Detect.) RSV RNA Qual (PCR) (Negative) SARS-CoV-2 RNA (RT-PCR) (Negative) S. pyogenes GrpA TERRY (Negative) T. vaginalis (PCR) NOT DETECTED (Not Detect) Bact vaginosis (PCR) NEGATIVE (Negative) C. krusei/glabrata (PCR) NOT DETECTED (Not Detect) Camila group (PCR) NOT DETECTED (Not Detect) Independent Interpretation I performed an independent interpretation of an: Plain X-Ray and CT Scan Interpretation: My interpretation is in agreement with the radiologist's impression of these imaging studies. L Report Number: [id number]: Total DLP = 1296.00 mGy-cm CLINICAL HISTORY: abd pain, nausea, vomiting CT of the abdomen and pelvis utilizing intravenous contrast. Comparison 12/15/2022. Findings: There is fatty infiltration of the liver with hepatomegaly. The gallbladder is unremarkable. There is a nonobstructive right renal stone. No hydronephrosis. Spleen size is upper limits of normal. No peripancreatic inflammatory changes. No abdominal aortic aneurysm. There has been a gastric bypass. No diverticulitis is identified. Normal appendix. No bowel obstruction. Moderate stool in the colon. Mild colonic wall thickening is likely incomplete distention. The bladder is mildly distended. No free fluid is seen in the pelvis. 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 Impression: No diverticulitis or bowel obstruction. Normal appendix. Mild colonic wall thickening likely incomplete distention. Fatty liver with hepatomegaly. Nonobstructive right renal stone. Gastric bypass. Degenerative changes in the hips. This document has been electronically signed by: Parveen Muller MD on 12/26/2024 18:03:57 Dictated By: Nasir Meyer MD Signed By: Electronically signed by Nasir Meyer MD 12/26/24 1804 CLINICAL HISTORY: fever, weakness Two views of the chest. Findings: Body habitus limits the study. The heart is enlarged. No CHF is identified. No focal consolidation or pleural effusion is seen. Impression: No consolidation. This document has been electronically signed by: Parveen Muller MD on 12/26/2024 18:42:13 Dictated By: Nasir Meyer MD Signed By: Electronically signed by Nasir Meyer MD 12/26/24 1843 Radiology Impression Discussion of test interpretation with radiology: I have reviewed the radiologist's reading. Prescription Management I considered prescription management with: Antibiotic (patient prescribed an antibiotic for cystitis / UTI) Discharge Plan Discharge Clinical Impression: Abdominal pain, UTI (urinary tract infection) Patient Disposition: Home, Self-Care Instructions: Urinary Tract Infection in Women (DC), Abdominal Pain (ED) Additional Instructions: Your work up today showed evidence of a urinary tract infection. Follow up with your primary care provider. Return to the emergency department immediately if your symptoms worsen or if you develop any dizziness, shortness of breath, difficulty breathing, chest pain, blurry vision, loss of vision, nausea, vomiting, abdominal pain, fever, chills, back pain, or any other complaints. Arianna?seguimiento?con cedeno m?dico de atenci?n primaria. Acuda inmediatamente al servicio de urgencias si jaime s?ntomas empeoran o si presenta falta de aliento, dificultad para respirar, dolor tor?cico, mareos, aturdimiento, dolor de espalda, dolor abdominal, fiebre, escalofr?os o cualquier otro s?ntoma. Please see the information below about our Patient Portal. If you are not yet enrolled in the [facility] Patient Portal, you will receive an enrollment email invitation following your visit to any [facility] setting. You may also self-enroll in the Patient Portal by visiting our website: [email or web address] The following information is required to access the Patient Portal: - Your [facility] Medical Record Number - Your personal home email address (must match what is in your electronic medical record, Registration staff can assist with this) - Name - Date of Capabilities of the Patient Portal: - Message some providers - View upcoming appointments - Access your health summary, medical history, and visit history - View current conditions and allergies - View procedure and lab results - View your medications, including guidelines, side effects, and precautions - Complete pre-appointment questionnaires requested by your provider - Ready summary reports of your office visits and procedures To access the Patient Portal Mobile Jamaal, follow these directions: - Search Blazent in the Jamaal Store or Airtasker Store - Download the Jamaal - Search for [facility] - Enter your login/password Portal del paciente Si usted no esta inscrito en el portal de pacientes de [facility], recibira emma invitacion de inscripcion despues de cedeno visita al [facility] o al [facility] via correo electronico. Tambien puede inscribirse voluntariamente en el portal de pacientes visitando nuestra pagina web: [email or web address] La siguiente informacion sera requerida para acceder al portal: - Cedeno alea de historia medica de [facility] - Cedeno direccion de correo electronico personal - Nombre - Fecha de nacimiento Capacidades: Las siguientes capacidades estan disponibles en el portal de pacientes: - Enviar mensajes a algunos doctores - Verificar proximas citas - Acceso a cedeno historial de dino, registro medico e historial de visitas - Johnny las condiciones actuales y alergias johnny procedimientos y resultados del laboratorio - Johnny jaime medicamentos, incluyendo las pautas - Efectos secundarios y precauciones - Completar o llenar formularios / cuestionarios de - Citas solicitadas por cedeno doctor - Leer los resumenes de reportes medicos de jaime visitas y procedimientos Sonny acceder a la aplicacion movil: - [facility] en la Jamaal Store o Google Play Store - Descargue la aplicacion - [facility] - Ingrese cedeno nombre de usuario / Contrasena Prescriptions: New cefuroxime axetil 250 mg tablet 250 mg PO BID 7 Days Qty: 14 0RF No Action Emgality Pen 120 mg/mL pen injector 120 mg subcut ONCE 28 Days Qty: 28 6RF magnesium oxide 400 mg (241.3 mg magnesium) tablet 400 mg PO BEDTIME 30 Days Qty: 30 6RF Rx Instructions: may hold for loose stools sumatriptan succinate 100 mg tablet 50 - 100 mg PO .COMPLEX PRN (Reason: migraine headache) 30 Days Qty: 12 6RF Rx Instructions: 50 - 100 mg orally at onset of headache, may repeat in 2 hrs PRN; max 2 tabs per day or 4 tabs/week (may take with Ibuprofen) duloxetine 30 mg capsule,delayed release(DR/EC) 60 mg PO DAILY naltrexone 50 mg Tablet 50 mg PO DAILY 30 Days Qty: 30 0RF doxycycline hyclate 100 mg tablet 100 mg PO Q12H 14 Days Qty: 28 0RF ibuprofen 400 mg tablet 400 mg PO Q6H PRN (Reason: pain) Qty: 14 0RF acetaminophen 500 mg capsule 1,000 mg PO Q8H PRN (Reason: fever or pain) Qty: 14 0RF metformin 500 mg tablet See Rx Instructions PO BID Rx Instructions: 1000mg qam and 500mg qpm orally 2 times a day; riboflavin (vitamin B2) 400 mg tablet 400 mg PO DAILY 30 Days Qty: 30 6RF gabapentin 300 mg capsule 300 mg PO TID quetiapine 400 mg tablet 400 mg PO BEDTIME risperidone 3 mg tablet 3 mg PO BEDTIME (DME) blood-glucose meter [FreeStyle Lite Meter] Kit See Rx Instructions .ROUTE .MEDSUPPLY Qty: 1 Rx Instructions: As directed Referrals: Giovanny Jorgensen MD [Primary Care Provider] - Stand Alone Forms: Work/School Release Interventions: ED Discharge Assessment Last Done: 12/26/24 18:24 Discharge Date/Time: 12/26/24 18:26 Print Language: Gabonese
[2024-12-26 13:17] VITALS: BP 111/84; PULSE 140; RESP 16; TEMP 37.7; O2SAT 95; BMI 37.4
[2024-12-26 13:46] LABS: IDNOW Serial# 58CA691E; Strep A Nucleic Acid Negative (Negative)
[2024-12-26 13:47] LABS: MANUAL DIFF FLAG NO
[2024-12-26 13:48] LABS: Basophils Percent Auto 0.2 % (0-2); Eosinophils Percent Auto 0.7 % (0-4); Hematocrit 35.4 % (37.0-47.0); Imm Gran Abs Auto 0.01 X10*3/uL (0.00-0.03); Imm Gran Pct Auto 0.2 % (0.0-0.4); Lymphocytes Absolute Auto 0.4 X10*3/uL (1.2-4.9); Lymphocytes Percent Auto 8.9 % (20-40); Mean Corpuscular HGB Conc 33.9 g/dl (31.0-35.0); Mean Corpuscular Hemoglobin 27.7 pg (27.0-33.0); Mean Corpuscular Volume 81.8 fL (80.0-98.0); Mean Platelet Volume 9.6 fL (9.4-12.3); Monocytes Absolute Auto 0.4 X10*3/uL (0.1-1.2); Monocytes Percent Auto 9.4 % (2-11); Neutrophils Absolute Auto 3.5 x10*3/uL (2.0-8.3); Neutrophils Percent Auto 80.6 % (45-73); Platelet Count 205 X10*3/uL (160-400); Red Blood Count 4.33 X10*6/uL (4.20-5.50); White Blood Count 4.4 X10*3/uL (4.8-10.8)
[2024-12-26 14:06] LABS: Lactic Acid 1.3 mmol/L (0.5-2.0)
[2024-12-26 14:07] LABS: Alanine Aminotransferase 15 U/L (0-31); Albumin Level 4.4 g/dL (3.5-5.0); Alkaline Phosphatase 162 U/L (39-117); Anion Gap 12 (12-20); Aspartate Amino Transferase 28 U/L (5-31); Bilirubin Total 1.1 mg/dL (0.0-1.0); Blood Urea Nitrogen 10 mg/dL (9-16); Carbon Dioxide 20 mmol/L (22-29); Chloride 110 mmol/L (96-108); Estimated Glomerular Filt Rate > 60; Glucose Random 105 mg/dL (60-115); Magnesium 1.9 mg/dL (1.6-2.6); Potassium 3.9 mmol/L (3.3-5.1); Sodium 138 mmol/L (135-145); Total Protein 7.5 g/dL (6.5-8.0)
[2024-12-26 14:11] LABS: Appearance Urine Clear; Color Urine Yellow; Glucose Urine UA Negative (Negative); Leukocyte Esterase Urine Trace (Negative); Nitrite Urine Negative (Negative); Specific Gravity - Urine >= 1.030 (1.005-1.025); UMIC TRIGGER UACC YES; Urine Blood Negative (Negative); Urine Ketones Trace mg/dL (Negative); Urine Protein Trace mg/dL (Neg-Trace)
[2024-12-26 14:14] LABS: Bacteria Urine Trace (None Seen); Hyaline Casts Urine 0-2 /LPF (0-2); RBC Urine 0-2 /HPF (0-2); WBC Urine 0-5 /HPF (0-5)
[2024-12-26 14:17] LABS: Influenza A PCR NEGATIVE (Negative); Influenza B PCR NEGATIVE (Negative); Resp Syncy Virus RNA Qual PCR NEGATIVE (Negative); SARS COV2 PCR INHOUSE NEGATIVE (Negative)
[2024-12-26 14:33] LABS: Lipase 21 U/L (8-78)
[2024-12-26 14:38] LABS: HCG Quantitative < 2 mIU/mL
--- OUTSIDE RECORDS SUMMARY | 2024-12-26 15:33 | XMS_ITS | Clinical Summary ---
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 12/12/19 25 Discontinued blood sugar diagnostic (FreeStyle Lite Strips) test strip 4 12/12/19 25 Discontinued insulin lispro (HumaLOG KwikPen) 100 unit/mL injection pen Inject under the skin 3 (three) times a day before meals. 4 12/12/19 25 Discontinued Active Problems Problem Noted Date Diagnosed Date Microcytic hypochromic anemia 03/26/2024 Iron deficiency anemia 07/05/2017 Overview (03/26/2024): IV iron; Dr Larose Encounters Date Type Department Care Team Description 12/26/2024 9:49 AM EDT Hospital Encounter Radiology Department - [address] [phone] Swollen lymph nodes 12/26/2024 Emergency [facility] Emergency [address] [place] [address] 12/17/2024 Telephone Pediatrics - [address] [place] [phone] Giovanny Jorgensen MD Back Pain 12/11/2024 11:15 AM EDT Office Visit [facility] Hematology Oncology [address] [place] [address] Priya Larose MD Iron deficiency anemia, unspecified iron deficiency anemia type (Primary Dx); History of anemia due to vitamin B12 deficiency 12/05/2024 11:30 AM EDT Office Visit Internal Medicine - [address] [phone] Zane Sousa PA Health maintenance examination (Primary Dx); Class 2 obesity; Swollen lymph nodes; Dizziness 11/29/2024 Telephone [facility] Hematology Oncology [address] [place] [phone] Priya Larose MD 11/25/2024 Telephone Pediatrics - [address] [phone] Giovanny Jorgensen MD Back Pain 11/22/2024 Telephone Internal Medicine - [address] [phone] Giovanny Jorgensen MD Back Pain from Last 3 Months Immunizations Name Administration Dates Next Due Influenza Quadravalent, MDCK , 0.5ml, preservative free (Flucelvax) 6mo and older 06/14/2023,06/25/2018 CiDRA/Screen [facility] [place] SARS-CoV-2 COVID -19, vector-nr, rS-Ad26, preservative free 02/24/2021 [place] SARS-CoV-2 COVID-19, mRNA, LNP-S, preservative free 12/31/2021,02/24/2021 Tdap Tetanus diptheria acell ular pertussis (Boostrix; Adacel) 7yo and older 02/13/2018 Surgical History Surgery Date Site/Laterality Comments SECTION x2 CARPAL TUNNEL RELEASE Right GASTRIC BYPASS Family History Medical History Relation Name Comments Depression Father Diabetes Father htn Father Breast cancer Maternal Grandmother Depression Mother Hypertension Mother Hypothyroidism Mother Colon cancer Paternal Grandfather Relation Name Status Comments Father Alive Maternal Grandmother Mother Alive Paternal Grandfather Social History Tobacco Use Types Packs/Day Years Used Date Smoking Tobacco: Never Smokeless Tobacco: Never Tobacco Cessation:Counseling Given: Not Answered Alcohol Use Standard Drinks/Week Comments Not Currently 0 (1 standard drink = 0.6 oz pur e alcohol) Housing Instability Answer Date Recorde d Are you worried that in the next 2 months you may not have stable housing? No 12/05/2024 Food Access & Nutrition Answer Date Rec orded Do you have access to a vari ety of food including fruits and vegetables? Yes 12/05/2024 Access to Healthcare Answer Date Record ed Within the last 3 months, ho w many times did you visit the emergency department for your medical care? 1 12/05/2024 Health Literacy Answer Date Recorded How often do you need to hav e someone help you when you read instructions, pamphlets, or other written material from your doctor or pharmacy? Never 12/05/2024 Caregiver: How often do you need to have someone help you when you read instructions, pamphlets, or other written material from your doctor or pharmacy? Not on file 12/05/2024 Financial Risk Answer Date Recorded How hard is it for you to pa y for the very basics like food, housing, medical care, and air conditioning / heating? Somewhat hard 12/05/2024 Transportation Answer Date Recorded Has the lack of transportati on kept you from meetings, work, or from getting things needed for daily living? No Has the lack of transportati on kept you from medical appointments or from getting medications? No 12/05/2024 Social Isolation Answer Date Recorded How often do you feel lonely or isolated from th ose around you? Always 12/05/2024 Food Risk Answer Date Recorded Within the past 12 months we worried whether our food would run out before we got money to buy more. Often true 12/05/2024 Within the past 12 months th e food we bought just didn't last and we didn't have money to get more. Never true 12/05/2024 Dependent Care Answer Date Recorded Do you need help finding or paying for care for your loved ones. For example, professor of early childhood education or elderly care for an older adult? No 12/05/2024 Education Answer Date Recorded Do you think completing more education or training, like finishing a GED, going to college, or learning a trade, would be helpful for you? No 12/05/2024 Employment and Income Answer Date Recor ded During the last four weeks, have you been actively looking for work? No 12/05/2024 Living Situation Answer Date Recorded What is your living situation? 0 12/05/2024 Comments No Sex and Gender Information Value Date Recorded Sex Assigned at Not on file Legal Sex Female 4:32 AM EST Gender Identity Not on file Sexual Orientation Not on file Obstetrics History Last Filed Vital Signs Vital Sign Reading Time Taken Comments Blood Pressure 137/78 12/11/2024 11:29 AM EDT Pulse 90 12/11/2024 11:29 AM EDT Temperature 36.6 ??C (97.8 ??F) 12/11/2024 11:29 AM E DT Respiratory Rate 16 12/05/2024 11:27 AM EDT Oxygen Saturation 97% 12/11/2024 11:29 AM EDT Inhaled Oxygen Concentration - - Weight 105 kg (231 lb) 12/11/2024 11:29 AM EDT Height 167.6 cm (5' 6 ) 08/07/2024 10:30 AM EST Body Mass Index 37.28 08/07/2024 10:30 AM EST Plan of Treatment Health Maintenance Due Date Last Done Comments Hepatitis B Vaccines (1 of 3 - 19+ 3-dose series) 2007 Cholesterol Screening (Lipid Panel) 07/09/2022 COVID-19 Vaccine ( season) 2024 12/31/2021, 12/28/2021, 02/24/2021, Additional history exists Cervical Cancer Screening: Pap Smear 08/25/2024 08/25/2021 Hypertension/CHF/CAD Annual BMP Blood Test 11/14/2024 Influenza Vaccine (Season Ended) 2025 06/14/2023, 06/25/2018 Depression Screening 12/05/2025 12/05/2024 Social Influencers of Health Screening 12/05/2025 12/05/2024 DTaP,Tdap,and Td Vaccines (3 - Td or Tdap) 05/08/2034 05/08/2024, 02/13/2018 HIB Vaccines Aged Out No longer eligi ble based on patient's age to complete this topic HIV Screening Discontinued HPV Vaccines Aged Out No longer eligi ble based on patient's age to complete this topic Hepatitis A Vaccines Aged Out No long er eligible based on patient's age to complete this topic Hepatitis C Screening Discontinued IPV Vaccines Aged Out No longer eligi [...] Procedure Name Priority Date/Time Associated Diagnosis Comments US HEAD NECK SOFT TISSUE Routine 12/26/2024 10:31 AM EDT Swollen lymph nodes CBC WITH AUTO DIFFERENTIAL Routine 12/09/2024 11:16 AM EDT Other iron deficiency anemia VITAMIN B12 Routine 12/09/2024 11:16 AM EDT Other iron deficiency anemia FERRITIN Routine 12/09/2024 11:16 AM EDT Other iron deficiency anemia IRON AND TIBC Routine 12/09/2024 11:16 AM EDT Other iron deficiency anemia CBC AND DIFFERENTIAL Routine 12/09/2024 11:16 AM EDT Other iron deficiency anemia PAP SMEAR Routine 08/25/2021 from Last 3 Months or Most Recently Relevant to Health Maintenance Results * US Head Neck Soft Tissue (12/26/2024 10:31 AM EDT) Anatomical Region Laterality Modality Head and Neck Ultrasound 12/26/2024 2:32 PM EDT Impressions 12/26/2024 2:44 PM EDT No significant interval change in the mildly enlarged left neck lymph node. ??Subcentimeter normal-appearing lymph node also present. POS - [id number] -------- FINAL REPORT -------- Dictated By: Janeen Richard Dictated Date: 12/26/2024 14:32 ET Assigned Physician: Janeen Richard Reviewed and Electronically Signed By: Janeen Richard Signed Date: 12/26/2024 14:44 ET Workstation ID: [id number] Transcribed By: Self Edit Transcribed Date: 12/26/2024 14:32 ET Narrative 12/26/2024 2:44 PM EDT EXAM: Ultrasound head neck soft tissue HISTORY: Follow-up left cervical lymphadenopathy. COMPARISON: 05/02/2023 FINDINGS: Patient delineated the palpable lumps in the left mid neck. ??Sonography shows 2 corresponding lymph nodes. ??The larger lymph node measures 1.6 x 0.9 x 0.5 cm which is not significantly changed compared with the prior exam. ??The smaller lymph node measures 0.9 x 0.8 x 0.5 cm. ??Both lymph nodes have normal echogenic fatty tiny without hypervascularity on color Doppler and without cortical thickening. Procedure Note Janeen Richard MD - 12/26/2024 EXAM: Ultrasound head neck soft tissue HISTORY: Follow-up left cervical lymphadenopathy. COMPARISON: 05/02/2023 FINDINGS: Patient delineated the palpable lumps in the left mid neck. Sonographyshows 2 corresponding lymph nodes. The larger lymph node measures 1.6 x0.9 x 0.5 cm which is not significantly changed compared with the priorexam. The smaller lymph node measures 0.9 x 0.8 x 0.5 cm. Both lymphnodes have normal echogenic fatty tiny without hypervascularity on colorDoppler and without cortical thickening. IMPRESSION: No significant interval change in the mildly enlarged left neck lymphnode. Subcentimeter normal-appearing lymph node also present. POS - [id number] -------- FINAL REPORT -------- Dictated By: Janeen Richard Dictated Date: 12/26/2024 14:32 ET Assigned Physician: Janeen Richard Reviewed and Electronically Signed By: Janeen Richard Signed Date: 12/26/2024 14:44 ET Workstation ID: [id number] Transcribed By: Self Edit Transcribed Date: 12/26/2024 14:32 ET us Zane [place]OR[place] [facility] [place] Final Result * (ABNORMAL) CBC auto differential (12/09/2024 11:16 AM EDT) [facility] WBC 5.5 4.8 - 10.8 K/mcL LAB HEMETOLOGY METHOD 12/09/2024 12:58 PM EDT [facility] RBC 4.60 3.80 - 4.80 M/mcL LAB HEMETOLOGY METHOD [facility] Hemoglobin 12.4 11.5 - 16.0 g/dL LAB HEMETOLOGY METHOD 12/[facility]24 [facility] Hematocrit 39.1 35.0 - 47.0 % LAB HEMETOLOGY METHOD 12/09/2024 12[facility] MCV 85.4 79.0 - 98.0 FL LAB HEMETOLOGY METHOD 12/09[facility]2024 12[facility] MCH 27.1 27.0 - 32.0 pcg LAB HEMETOLOGY METHOD 12/09/2024 12:58 PM [facility] MCHC 31.7(L) 32.0 - 37.0 g/dL LAB HEMETOLOGY METHOD 12/09/2024 12[facility]58 [facility] RDW 14.6 11.0 - 15.0 % LAB HEMETOLOGY METHOD 12/09/2024 12:58 [facility] Platelets 252 130 - 400 K/mcL LAB HEMETOLOGY METHOD 12/09/2024 12:58 PM [facility] MPV 10.2 7.0 - 11.0 FL LAB HEMETOLOGY METHOD 12/09/2024 12[facility] NRBC 0.0 <1.0 % LAB HEMETOLOGY METHOD 12/09/2024 12[facility] NRBC Absolute 0.00 <0.10 K/mcL LAB HEMETOLOGY METHOD 12/09/2024 12:58 PM [facility] Neutrophils Relative 54.9 % LAB HEMETOLOGY METHOD 12/09/2024 12:58 PM [facility] Lymphocytes Relative 33.7 % LAB HEMETOLOGY METHOD 12/09/2024 12:58 PM [facility] Monocytes Relative 9.7 % LAB HEMETOLOGY METHOD 12/09/2024 12:58 PM [facility] Eosinophils Relative 0.7 % LAB HEMETOLOGY METHOD 12/09/2024 12:58 PM [facility] Basophils Relative 0.5 % LAB HEMETOLOGY METHOD 12/09/2024 12:58 PM [facility] Immature Granulocytes Relative 0.5 % LAB HEMETOLOGY METHOD 12/09/2024 12:58 PM [facility] Neutrophils Absolute 2.99 1.50 - 7.00 K/mcL LAB HEMETOLOGY METHOD 12/09/2024 12:58 PM [facility] Lymphocytes Absolute 1.84 1.00 - 5.00 K/mcL LAB HEMETOLOGY METHOD 12/09/2024 12:58 PM [facility] Monocytes Absolute 0.53 0.20 - 1.00 K/mcL LAB HEMETOLOGY METHOD 12/09/2024 12:58 PM [facility] Eosinophils Absolute 0.04 0.00 - 0.50 K/mcL LAB HEMETOLOGY METHOD 12/09/2024 12:58 PM [facility] Basophils Absolute 0.03 0.00 - 0.20 K/mcL LAB HEMETOLOGY METHOD 12/09/2024 12:58 PM EDT [facility] Immature Granulocytes Absolute 0.03 0.00 - 0.03 K/mcL LAB HEMETOLOGY METHOD 12/09/2024 12:58 PM EDT [facility] Blood Venous blood specimen / Unknown Venipuncture / Unknown 12/09/2024 11:16 AM EDT 12/09/2024 11:38 AM EDT Priya Larose MD LAB BLOOD ORDERABLES Final R esult Performing Organization Address City/[facility]/ZIP Co de Phone Number [facility] [address] [place] [address], * (ABNORMAL) Iron and TIBC (12/09/2024 11:16 AM EDT) Iron 119 40 - 150 mcg/dL LAB CHEMISTRY METHOD 12/09/2024 1:22 PM EDT [facility] TIBC 542(H) 250 - 450 mcg/dL LAB CHEMISTRY METHOD 12/09/2024 1:22 PM EDT [facility] Iron Saturation 22 15 - 50 % LAB CHEMISTRY METHOD 12/09/2024 1:22 PM EDT [facility] Blood Venous blood specimen / Unknown Venipuncture / Unknown 12/09/2024 11:16 AM EDT 12/09/2024 11:38 AM EDT Priya Larose MD LAB BLOOD ORDERABLES Final R esult Performing Organization Address City/[facility]/ZIP Co de Phone Number [facility] [address] [place] [address], [place] [phone] * Ferritin (12/09/2024 11:16 AM EDT) Ferritin 8 8 - 252 ng/mL LAB CHEMISTRY METHOD 12/09/2024 1:48 PM EDT [facility] Blood Venous blood specimen / Unknown Venipuncture / Unknown 12/09/2024 11:16 AM EDT 12/09/2024 11:38 AM EDT Priya Larose MD LAB BLOOD ORDERABLES Final R esult Performing Organization Address City/[facility]/ZIP Co de Phone Number [facility] [address] [place] [address], [place] [phone] * Vitamin B12 (12/09/2024 11:16 AM EDT) [facility] Vitamin B-12 399 250 - 900 pcg/mL LAB CHEMISTRY METHOD 12/09/2024 1:44 PM EDT [facility] Blood Venous blood specimen / Unknown Venipuncture / Unknown 12/09/2024 11:16 AM EDT 12/09/2024 11:38 AM EDT Priya Larose MD LAB BLOOD ORDERABLES Final R esult Performing Organization Address [facility] Co de Phone Number [facility] [address] [place] [address], [place] [phone] * Pap smear (08/25/2021) 08/25/2021 Narrative HISTORICAL TESTING LAB RESULTING AGENCY - 09/09/2021 7:45 AM EST [id number] THINPREP PAP, IMAGED: NEGATIVE FOR SQUAMOUS INTRAEPITHELIAL [...] Most Recently Relevant to Health Maintenance [place] [address] [place] [address] [employer] PLAN Care Teams Crop Duster 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
[2024-12-26] MEDS: Acetaminophen 1,000 MG/100 ML PIGGYBACK 400 MG IV (15:44)
[2024-12-26] MEDS: Ketorolac Tromethamine 15 MG/ML VIAL IVPUSH (15:44)
[2024-12-26] MEDS: cefTRIAXone sodium 1 GM VIAL IVPUSH (15:45)
[2024-12-26] MEDS: ondansetron HCL 4 MG/2 ML VIAL IVPUSH (15:45)
[2024-12-26 15:50] VITALS: BP 104/46; PULSE 111; RESP 18; O2SAT 96
[2024-12-26] MEDS: iohexoL 350 MG/ML 100 ML INFUS..BTL IV (16:49)
--- NOTE | 2024-12-26 16:54 | PC.NURSE ---
Pt. in CT scan
[2024-12-26] MEDS: 0.9 % Sodium Chloride 1,000 ML 999 ML IV (16:58)
[2024-12-26 18:07] LABS: TSH reflex Free T4 0.73 uIU/mL (0.32-4.0)
--- NOTE | 2024-12-26 18:19 | PC.NURSE ---
PT X-Ray results not back yet ok to DC per provider ALEXANDRU Stakr.
[2024-12-26 18:24] VITALS: BP 130/80; PULSE 100; RESP 18; TEMP 36.7; O2SAT 96
[2024-12-26 21:26] LABS: Bacterial Vaginosis PCR NEGATIVE (Negative); Candida Group PCR NOT DETECTED (Not Detect); Candida glab krusei PCR NOT DETECTED (Not Detect); Trichomonas vaginalis PCR NOT DETECTED (Not Detect)
[2024-12-26 22:04] LABS: CT PCR NOT DETECTED (Not Detect.); NG PCR NOT DETECTED (Not Detect.)
== END 2024-12-26 18:26 | disposition home or self-care (01) ==
PROVIDERS: Physician Assistant Medical; Emergency Provider Emergency Medicine Emergency Medical Services; PCP Internal Medicine
DX: N39.0 Urinary tract infection, site not specified (principal); R10.2 Pelvic and perineal pain; R11.0 Nausea; Z03.818 Encounter for observation for suspected exposure to other biological agents ruled out; Z79.899 Other long term (current) drug therapy
CPT/HCPCS: 0241U; 36415; 71046; 74177; 80053; 81001; 81515; 83605; 83690; 83735; 84443; 84702; 85025; 87040; 87491; 87591; 87651; 96361; 96374; 96375; 99284; 99285; J0131; J0696; J1885; J2405; Q9967

== ENCOUNTER → 2024-12-26 15:27 | Outpatient (BNV) | payer OTHER, SELFPAY | PROVIDERS: Emergency Provider Emergency Medicine Emergency Medical Services; PCP Internal Medicine; Visit Provider Radiology Diagnostic Radiology | DX: K76.0 Fatty (change of) liver, not elsewhere classified (principal); N20.0 Calculus of kidney; R16.0 Hepatomegaly, not elsewhere classified; M16.0 Bilateral primary osteoarthritis of hip; R50.9 Fever, unspecified; R53.1 Weakness | CPT/HCPCS: 71046; 74177 ==